=== PATIENT | female | born 1955 | race Caucasian/White ===

== ENCOUNTER 2019-12-08 12:20 | Outpatient (REF) | payer SELFPAY ==
--- NOTE | 2019-12-08 12:46 | US_ITS ---
EXAMINATION: US ABDOMEN COMPLETE CLINICAL INFORMATION: Abdominal pain. COMPARISON: None TECHNIQUE: Real-time imaging of the abdominal viscera. Technically challenging exam secondary to patient body habitus. FINDINGS: PANCREAS: The visualized pancreas is normal in size and contour and echogenicity. There is no pancreatic ductal dilatation or retroperitoneal effusion. The pancreatic tail and distal body are obscured by bowel gas and not completely imaged. ABDOMINAL AORTA: The proximal, mid, and distal segments are normal in caliber. INFERIOR VENA CAVA: Visualized portions are normal. LIVER: The liver is within normal size and smooth in contour. There is increased hepatic parenchymal echogenicity consistent with hepatic steatosis. There is no focal hepatic parenchymal lesion or intrahepatic ductal dilatation. Doppler shows portal flow towards the liver. GALLBLADDER: Normal. The gallbladder is physiologically distended without evidence of stones, sludge, polyps, wall thickening or pericholecystic fluid. COMMON BILE DUCT: Common duct is upper limits of normal measuring 6 to 7 mm in greatest dimension. No visible ductal calculus or wall thickening. RIGHT KIDNEY: Normal. No hydronephrosis. No renal calculi or focal parenchymal lesions. The kidney measures 12.6 cm in maximum dimension. LEFT KIDNEY: Normal. No hydronephrosis. No renal calculi. There is incidental lobation of the renal contour. The kidney measures 11.4 cm in maximum dimension. Simple cyst present between mid and lower pole measuring 2 cm. SPLEEN: Normal. The spleen measures 11.3 cm in maximum dimension. FREE FLUID: None. US/US abdomen complete IMPRESSION: 1. No cholelithiasis or biliary ductal dilatation. 2. Hepatic steatosis. Visualized pancreas unremarkable, tail obscured by bowel gas. 3. No hydronephrosis or visible renal calculi. Cyst left kidney 2 cm.
--- NOTE | 2019-12-08 12:46 | US_ITS ---
EXAMINATION: US THYROID CLINICAL INFORMATION: Interval follow up of nodules. COMPARISON: Ultrasound soft tissue head/neck thyroid dated 08/19/2018 and 01/11/2016. TECHNIQUE: Linear transducer barton-scale and color Doppler examination with attention to the region of the thyroid. FINDINGS: SIZE: Measurements of the thyroid lobes and nodules are given in sagittal, anteroposterior and transverse dimensions respectively. Right Thyroid Lobe: 6.6 x 2.8 x 3.5 cm, volume 33.2 mL. Previously 5.4 x 2.5 x 3.1 cm, volume 21.7 mL. Parenchyma: The gland echotexture is heterogeneous. Thyroid vascularity is normal. Left Thyroid Lobe: 8.4 x 3.4 x 3.6 cm, volume 54.0 mL. Previously 6.3 x 2.8 x 3.6 cm, volume 33.9 mL. Parenchyma: The gland echotexture is heterogeneous. Thyroid vascularity is normal. Isthmus: 1.8 cm in maximum AP dimension. Previously 1.0 cm. RIGHT THYROID LOBE: There are 4 nodules seen. 1. Location: Superior. Size: 1.5 x 0.8 x 1.1 cm. Previous: 1.1 x 0.7 x 1.0 cm. Nodule characteristics: Isoechoic, hypoechoic rind and intranodular flow. 2. Location: Superior. Size: 1.1 x 1.0 x 2.6 cm. Previous: 1.2 x 1.0 x 1.4 cm. Nodule characteristics: Heterogeneous, irregular shaped with intranodular flow. 3. Location: Middle/inferior. Size: 3.8 x 2.0 x 3.4 cm. Previous: 3.1 x 2.0 x 2.8 cm. Nodule characteristics: Heterogeneous, smoothly marginated with intranodular flow. 4. Location: Middle. Size: 0.7 x 0.6 x 0.6 cm. Previous: New since the previous study. Nodule characteristics: Heterogeneous, hypoechoic rind with no intranodular flow. Fifth nodule seen previously is not seen at this time. ISTHMUS: No nodules. LEFT THYROID LOBE: The left thyroid lobe is very heterogeneous with no distinct nodule identified. NODES: No lymphadenopathy is seen in the tissue surrounding the thyroid gland. US/US thyroid IMPRESSION: Heterogeneous multinodular goiter with multiple nodules in the right lobe as described above. The largest nodule in the [id number] pole is very heterogeneous, if clinically indicated and biopsy not performed, ultrasound-guided fine-needle biopsy should be performed. It has increased in size from 3.1 to 3.8 cm.
== END 2019-12-08 12:21 | disposition home or self-care (01) ==
LOC: HO.US 12:20
DX: E05.20 Thyrotoxicosis with toxic multinodular goiter without thyrotoxic crisis or storm (principal)
CPT/HCPCS: 76536; 76700

== ENCOUNTER 2019-12-30 10:30 | Outpatient (REF) | payer BC, SELFPAY ==
[2019-12-30 12:21] LABS: Free T4 (Free Thyroxine) 0.98 ng/dL (0.71-1.85); Thyroid Stimulating Hormone 1.02 uIU/mL (0.32-4.0)
[2019-12-31 06:52] LABS: Triiodothyronine T3 Total 96 ng/dL (76-181)
== END 2019-12-30 10:31 | disposition home or self-care (01) ==
LOC: HO.HMGCLDS 10:30
PROVIDERS: Visit Provider Internal Medicine Endocrinology, Diabetes & Metabolism
DX: E05.20 Thyrotoxicosis with toxic multinodular goiter without thyrotoxic crisis or storm (principal)
CPT/HCPCS: 84439; 84443; 84480

== ENCOUNTER 2020-03-08 10:50 | Outpatient (REF) | payer BC, SELFPAY ==
--- NOTE | 2020-03-08 11:35 | PM.OP ---
Brief Operative Note Date of Service: 03/08/20 Pre-op diagnosis: TOXIC MULTINODULAR GOITER Post-op diagnosis: same Procedure: This procedure was explained to the patient, alternatives risks and benefits were discussed. Written consent was obtained. After sterile preparation of the skin fine-needle aspiration of right mid pole nodule, size 3.8 x 2.0 x 3.4 cm was performed 100 thyroid ultrasound guidance to confirm accurate needle placement. Three passes were performed using 27 gauge needles. Initial cytology reading was adequate. 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 Second fine-needle aspiration of right lower pole nodule, size 1.7 x 1.3 x 1.7 cm was performed using 25 gauge needles. Samples were submitted for cytology, initial cytology was adequate. 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 Patient tolerated procedure well. Aftercare instructions were provided. Impression: Uncomplicated fine-needle aspiration biopsy of right mid pole nodule and right lower pole nodule under direct ultrasound guidance. Surgeon: Tenisha Bach MD Anesthesia: local (LIDOCAINE 1 % 2 ML) Estimated blood loss (mL): 0 Condition: stable Disposition: same day
[2020-03-08] MEDS: Lidocaine HCl 1 % MPF 5 ML VIAL SUBCUT (12:13)
== END 2020-03-08 10:51 | disposition home or self-care (01) ==
LOC: HO.US 10:50
PROVIDERS: Visit Provider Internal Medicine Endocrinology, Diabetes & Metabolism
DX: E05.20 Thyrotoxicosis with toxic multinodular goiter without thyrotoxic crisis or storm (principal)
CPT/HCPCS: 10005; 10006; 88172; 88173; 88177; 88305

== ENCOUNTER → 2020-03-16 11:27 | Outpatient (BNVA) | payer BC, SELFPAY | PROVIDERS: Visit Provider Internal Medicine Endocrinology, Diabetes & Metabolism ==

== ENCOUNTER → 2020-04-17 11:20 | Outpatient (BNVA) | payer BC, SELFPAY | PROVIDERS: Visit Provider Dietitian, Registered | DX: E11.65 Type 2 diabetes mellitus with hyperglycemia (principal) | CPT/HCPCS: 97802 ==

== ENCOUNTER → 2020-06-15 14:19 | Outpatient (BNVA) | payer BC, SELFPAY | PROVIDERS: Visit Provider Internal Medicine Endocrinology, Diabetes & Metabolism ==

== ENCOUNTER → 2020-08-24 08:14 | Outpatient (BNVA) | payer BC, SELFPAY | PROVIDERS: Visit Provider Internal Medicine Endocrinology, Diabetes & Metabolism ==

== ENCOUNTER 2020-08-25 11:00 | Outpatient (REF) | payer BC, SELFPAY ==
[2020-08-25 14:06] LABS: Estimated Average Glucose 166 mg/dL; Hemoglobin A1c % 7.4 %
[2020-08-25 14:21] LABS: Alanine Aminotransferase 17 U/L (0-31); Albumin Level 4.4 g/dL (3.5-5.0); Alkaline Phosphatase 41 U/L (39-117); Anion Gap 13 (12-20); Aspartate Amino Transferase 19 U/L (5-31); Bilirubin Total 0.5 mg/dL (0.0-1.0); Blood Urea Nitrogen 21 mg/dL (9-16); Calcium 9.6 mg/dL (8.4-10.2); Carbon Dioxide 23 mmol/L (22-29); Chloride 107 mmol/L (96-108); Cholesterol 172 mg/dL; Estimated Glomerular Filt Rate > 60; Glucose Fasting 141 mg/dL (60-99); HDL Cholesterol 38 mg/dL; LDL Cholesterol Calculated 94 mg/dl; Potassium 4.4 mmol/L (3.3-5.1); Sodium 139 mmol/L (135-145); Total Protein 7.2 g/dL (6.5-8.0); Triglycerides 204 mg/dL
[2020-08-25 14:39] LABS: Creatinine Urine 105.31 mg/dL; Microalbum/Creatinine Ratio Ur 16.1 ug/mg cr
[2020-08-25 14:41] LABS: Free T4 (Free Thyroxine) 0.96 ng/dL (0.71-1.85); Thyroid Stimulating Hormone 0.63 uIU/mL (0.32-4.0)
[2020-08-26 13:56] LABS: LDL Cholesterol Direct 114 mg/dL (<100); Triiodothyronine T3 Total 86 ng/dL (76-181)
[2020-08-27 08:46] LABS: Vitamin B12 250 pg/mL (200-900)
== END 2020-08-25 11:01 | disposition home or self-care (01) ==
LOC: HO.HMGCLDS 11:00
PROVIDERS: Visit Provider Internal Medicine Endocrinology, Diabetes & Metabolism
DX: E11.65 Type 2 diabetes mellitus with hyperglycemia (principal); E05.20 Thyrotoxicosis with toxic multinodular goiter without thyrotoxic crisis or storm
CPT/HCPCS: 36415; 80053; 80061; 82043; 82607; 83036; 83721; 84439; 84443; 84480

== ENCOUNTER 2021-07-09 14:13 | Outpatient (REF) | payer MEDICARE, BC, SELFPAY ==
--- NOTE | ~2021-07-09 | XR_ITS ---
EXAMINATION: XR HIP, RIGHT XR HIP, LEFT CLINICAL INFORMATION: Bilateral hip pain COMPARISON: Radiographs pelvis and bilateral hips 05/06/2013. TECHNIQUE: Each hip is imaged in AP and frog-lateral projections. There are total of 4 views. FINDINGS: Right: Normal bony mineralization. No fracture, dislocation, destructive process. No joint narrowing or erosive change or visible chondrocalcinosis. Soft tissue planes are unremarkable. There is mild spurring from the caudal aspect greater trochanter and benign oval mineralization adjacent to lower right iliac crest, possibly related to inguinal ligament. SI joint and pubis are unremarkable. Left: Normal bony mineralization. No fracture, dislocation, or destructive process. No joint narrowing or erosive change or visible chondrocalcinosis. Soft tissue planes are unremarkable. There is benign teardrop shaped mineralization adjacent to superior aspect greater trochanter with some spurring caudal aspect greater trochanter. There is also benign oval mineralization adjacent to lower iliac crests similar to contralateral side, possibly related to inguinal ligament. The SI joints and pubis are unremarkable. XR/XR hip RT min 2V IMPRESSION: -No fracture or destructive process. No hip joint narrowing or erosive change. -Bilateral mineralization adjacent to lower iliac wing, possibly in the origin inguinal ligament. -Mineralization overlying superior left greater trochanter likely calcific tendinosis. -Bilateral spurring cortical aspect greater trochanters.
--- NOTE | ~2021-07-09 | XR_ITS ---
EXAMINATION: XR HIP, RIGHT XR HIP, LEFT CLINICAL INFORMATION: Bilateral hip pain COMPARISON: Radiographs pelvis and bilateral hips 05/06/2013. TECHNIQUE: Each hip is imaged in AP and frog-lateral projections. There are total of 4 views. FINDINGS: Right: Normal bony mineralization. No fracture, dislocation, destructive process. No joint narrowing or erosive change or visible chondrocalcinosis. Soft tissue planes are unremarkable. There is mild spurring from the caudal aspect greater trochanter and benign oval mineralization adjacent to lower right iliac crest, possibly related to inguinal ligament. SI joint and pubis are unremarkable. Left: Normal bony mineralization. No fracture, dislocation, or destructive process. No joint narrowing or erosive change or visible chondrocalcinosis. Soft tissue planes are unremarkable. There is benign teardrop shaped mineralization adjacent to superior aspect greater trochanter with some spurring caudal aspect greater trochanter. There is also benign oval mineralization adjacent to lower iliac crests similar to contralateral side, possibly related to inguinal ligament. The SI joints and pubis are unremarkable. XR/XR hip LT min 2V IMPRESSION: -No fracture or destructive process. No hip joint narrowing or erosive change. -Bilateral mineralization adjacent to lower iliac wing, possibly in the origin inguinal ligament. -Mineralization overlying superior left greater trochanter likely calcific tendinosis. -Bilateral spurring cortical aspect greater trochanters.
--- NOTE | ~2021-07-09 | XR_ITS ---
EXAMINATION: XR KNEE, LEFT CLINICAL INFORMATION: M25.562 - Pain in left knee COMPARISON: Radiographs left knee 03/05/2017 TECHNIQUE: AP and lateral views of the left knee. FINDINGS: No fracture, dislocation, destructive process. Again, there are osteoarthritic changes patellofemoral joint. There is also interval mild narrowing lateral knee joint compartment with increased lateral spur tibial plateau. There is a small central osteophyte medial femoral condyle. No erosive changes. There may be trace fluid suprapatellar bursa. No significant effusion. There are scattered atherosclerotic calcifications vasculature. XR/XR knee LT 2V IMPRESSION: -Osteoarthritis patellofemoral joint and mild interval degenerative changes lateral knee joint. -Probable trace suprapatellar effusion. -Scattered atherosclerotic calcifications vasculature.
--- NOTE | ~2021-07-09 | US_ITS ---
EXAMINATION: US THYROID CLINICAL INFORMATION: Nontoxic multinodular goiter. COMPARISON: Ultrasound soft tissue head/neck thyroid dated 12/08/2019 and 08/19/2018. TECHNIQUE: Linear transducer grayscale and color Doppler examination with attention to the region of the thyroid. FINDINGS: SIZE: Measurements of the thyroid lobes and nodules are given in sagittal, anteroposterior and transverse dimensions respectively. Right Thyroid Lobe: 7.1 x 2.3 x 2.9 cm, volume 24.8 mL. Previously 6.6 x 2.8 x 3.5 cm, volume 33.2 mL. Parenchyma: The gland echotexture is heterogeneous. Thyroid vascularity is increased. Left Thyroid Lobe: 9.5 x 3.7 x 4.3 cm, volume 79.1 mL. Previously 8.4 x 3.4 x 3.6 cm, volume 54.0 mL. Parenchyma: The gland echotexture is heterogeneous. Thyroid vascularity is increased. Isthmus: 1.8 cm in maximum AP dimension. Previously 1.8 cm. Estimated total number of nodules greater than or equal to 1 cm: 3. Nail Welter nodules are described as follows: 1. Location: Right superior. Size: 0.8 x 0.4 x 0.6 cm, volume 0.11 mL. Previously: 1.5 x 0.8 x 1.1 cm, volume 0.69 mL. Nodule characteristics: Composition: Solid (2). Echogenicity: Isoechoic (1). Shape: Not taller than wide (0). Margins: Ill-defined (0). Echogenic Foci: None (0). ACR TI-RADS total points: 3 ACR TI-RADS category: 3 Significant change in size (>/= 20% in 2 dimensions and minimal increase of 2 mm or 50% or greater increase in volume): Cannot compare. Previously there were 2 separate nodules and appear merged. Change in features: Appears more complex this time Change in ACR TI-RADS risk category: 2. Location: Right mid/inferior medial. Size: 4.7 x 2.0 x 4.4 cm, volume 21.9 mL. Previously: Previously measured as 2 separate nodules. Nodule characteristics: Composition: Solid (2). Echogenicity: Hypoechoic (2). Shape: Not taller than wide (0). Margins: Irregular (2). Echogenic Foci: None (0). ACR TI-RADS total points: 6 ACR TI-RADS category: 4 Significant change in size (>/= 20% in 2 dimensions and minimal increase of 2 mm or 50% or greater increase in volume): Not applicable. Change in features: Not applicable. Change in ACR TI-RADS risk category: Not applicable. 3. Location: Left inferior. Size: 8.1 x 4.3 x 5.5 cm, volume 100 mL. Previously: Not documented on the prior study. Nodule characteristics: Composition: Solid (2). Echogenicity: Hypoechoic (2). Shape: Not taller than wide (0). Margins: Extrathyroidal extension (3). Echogenic Foci: None (0). ACR TI-RADS total points: 7 ACR TI-RADS category: 5 4. Location: Left superior. Size: 3.6 x 1.8 x 2.8 cm, volume 9.4 mL. Previously: Not documented on the prior study. Nodule characteristics: Composition: Solid (2). Echogenicity: Hypoechoic (2). Shape: Not taller than wide (0). Margins: Smooth (0). Echogenic Foci: Macrocalcifications (1). ACR TI-RADS total points: 5 ACR TI-RADS category: 4 NODES: No lymphadenopathy is seen in the tissue surrounding the thyroid gland. US/US thyroid IMPRESSION: 2 nodules in the right upper and midpole are united to form a complex larger nodule within midpole with TI-RADS 4 and total points 6. There is a complex nodule measuring 8.1 cm in the lower pole left lobe. Both these nodules appear different from the previous study and a biopsy is recommended.. ACR TI-RADS RECOMMENDATION REFERENCE: Ultrasound-guided fine-needle aspiration, followup ultrasound, no further follow up. * TR1 (0 point) and TR 2 (2 points): No FNA or follow up * TR3 (3 points): FNA if more than or equal to 2.5 cm in maximum dimension, followup ultrasound in 1, 3 and 5 years if 1.5 to 2.4 cm in maximum dimension. * TR4 (4-6 points): FNA if more than or equal to 1.5 cm in maximum dimension, followup ultrasound in 1, 2, 3 and 5 years if 1 to 1.4 cm in maximum dimension. * TR5 (more than or equal to 7 points): FNA if more than or equal to 1 cm in maximum dimension, followup ultrasound every year for 5 years if 0.5 to 0.9 cm in maximum dimension. * TR3, TR4 or TR5 nodules that are below the size threshold for follow up receive no follow up.
== END 2021-07-09 14:14 | disposition home or self-care (01) ==
LOC: HO.HMGCX 14:13
PROVIDERS: Absent Provider Internal Medicine; Visit Provider Internal Medicine Endocrinology, Diabetes & Metabolism
DX: M25.562 Pain in left knee (principal); M25.552 Pain in left hip; M25.551 Pain in right hip; E04.2 Nontoxic multinodular goiter; E05.20 Thyrotoxicosis with toxic multinodular goiter without thyrotoxic crisis or storm
CPT/HCPCS: 73502; 73560; 76536

== ENCOUNTER 2021-07-22 09:37 | Outpatient (REF) | payer MEDICARE, BC, SELFPAY ==
[2021-07-22 12:57] LABS: Hematocrit 39.5 % (37.0-47.0); Hemoglobin 13.2 g/dl (12.0-16.0); Mean Corpuscular HGB Conc 33.4 g/dl (31.0-35.0); Mean Corpuscular Hemoglobin 29.1 pg (27.0-33.0); Platelet Count 297 X10*3/uL (160-400); Red Blood Count 4.54 X10*6/uL (4.20-5.50); Red Cell Distribution Width 12.6 % (11.0-16.0)
[2021-07-22 13:18] LABS: Estimated Average Glucose 160 mg/dL; Hemoglobin A1c % 7.2 %
[2021-07-22 13:31] LABS: Free T4 (Free Thyroxine) 0.95 ng/dL (0.71-1.85); Thyroid Stimulating Hormone 0.76 uIU/mL (0.32-4.0)
[2021-07-22 13:32] LABS: Alanine Aminotransferase 21 U/L (0-31); Albumin Level 4.2 g/dL (3.5-5.0); Alkaline Phosphatase 46 U/L (39-117); Anion Gap 11 (12-20); Aspartate Amino Transferase 21 U/L (5-31); Bilirubin Direct < 0.2 mg/dL (0.0-0.5); Bilirubin Total 0.4 mg/dL (0.0-1.0); Blood Urea Nitrogen 14 mg/dL (9-16); Calcium 9.6 mg/dL (8.4-10.2); Carbon Dioxide 26 mmol/L (22-29); Chloride 106 mmol/L (96-108); Cholesterol 144 mg/dL; Estimated Glomerular Filt Rate > 60; Glucose Fasting 93 mg/dL (60-99); HDL Cholesterol 37 mg/dL; LDL Cholesterol Calculated 73 mg/dl; Potassium 4.3 mmol/L (3.3-5.1); Sodium 139 mmol/L (135-145); Total Protein 6.9 g/dL (6.5-8.0); Triglycerides 172 mg/dL
[2021-07-23 08:56] LABS: Triiodothyronine T3 Free 3.1 pg/mL (2.3-4.2)
[2021-07-28 13:31] LABS: Vitamin D 25-OH, D2 <4 ng/mL; Vitamin D 25-OH, D3 33 ng/mL; Vitamin D 25-OH, Total 33 ng/mL (30-100)
== END 2021-07-22 09:38 | disposition home or self-care (01) ==
LOC: HO.HMGCLDS 09:37
PROVIDERS: Absent Provider Internal Medicine Endocrinology, Diabetes & Metabolism; PCP Internal Medicine; Visit Provider Internal Medicine
DX: E55.9 Vitamin D deficiency, unspecified (principal); E78.5 Hyperlipidemia, unspecified; E11.40 Type 2 diabetes mellitus with diabetic neuropathy, unspecified; E05.20 Thyrotoxicosis with toxic multinodular goiter without thyrotoxic crisis or storm
CPT/HCPCS: 36415; 80053; 80061; 80076; 82248; 82306; 83036; 84439; 84443; 84481; 85027

== ENCOUNTER → 2021-08-21 11:00 | Outpatient (BNVA) | payer MEDICARE, BC, SELFPAY | PROVIDERS: PCP Internal Medicine; Visit Provider Internal Medicine Endocrinology, Diabetes & Metabolism | DX: E11.65 Type 2 diabetes mellitus with hyperglycemia (principal); E05.20 Thyrotoxicosis with toxic multinodular goiter without thyrotoxic crisis or storm | CPT/HCPCS: Q3014 ==

== ENCOUNTER 2021-08-27 12:04 | Outpatient (REF) | payer MEDICARE, BC, SELFPAY ==
[2021-08-27 14:23] LABS: Creatinine Urine 42.39 mg/dL; Microalbum/Creatinine Ratio Ur 16.5 ug/mg cr
[2021-08-27 14:35] LABS: Thyroid Stimulating Hormone 0.45 uIU/mL (0.32-4.0)
[2021-08-30 20:02] LABS: Antibody to SS-A Antigen <1.0 NEG AI (<1.0 NEG); Antibody to SS-B Antigen <1.0 NEG AI (<1.0 NEG)
== END 2021-08-27 12:05 | disposition home or self-care (01) ==
LOC: HO.HMGCLDS 12:04
PROVIDERS: PCP Internal Medicine; Visit Provider Internal Medicine
DX: E05.90 Thyrotoxicosis, unspecified without thyrotoxic crisis or storm (principal); H04.123 Dry eye syndrome of bilateral lacrimal glands; R68.2 Dry mouth, unspecified; E11.9 Type 2 diabetes mellitus without complications
CPT/HCPCS: 36415; 82043; 84443; 86235

== ENCOUNTER → 2021-10-08 12:59 | Outpatient (BNVA) | payer MEDICARE, BC, SELFPAY | PROVIDERS: PCP Internal Medicine; Visit Provider Dietitian, Registered | DX: E11.9 Type 2 diabetes mellitus without complications (principal); Z71.3 Dietary counseling and surveillance | CPT/HCPCS: 97803 ==

== ENCOUNTER 2021-11-26 12:17 | Outpatient (REF) | payer MEDICARE, BC, SELFPAY ==
[2021-11-26 14:53] LABS: Alanine Aminotransferase 15 U/L (0-31); Albumin Level 4.5 g/dL (3.5-5.0); Alkaline Phosphatase 65 U/L (39-117); Anion Gap 18 (12-20); Aspartate Amino Transferase 17 U/L (5-31); Bilirubin Total 0.5 mg/dL (0.0-1.0); Blood Urea Nitrogen 10 mg/dL (9-16); Calcium 9.7 mg/dL (8.4-10.2); Carbon Dioxide 24 mmol/L (22-29); Chloride 102 mmol/L (96-108); Cholesterol 221 mg/dL; Estimated Glomerular Filt Rate > 60; Glucose Fasting 254 mg/dL (60-99); HDL Cholesterol 40 mg/dL; LDL Cholesterol Calculated 128 mg/dl; Potassium 4.5 mmol/L (3.3-5.1); Sodium 139 mmol/L (135-145); Total Protein 7.4 g/dL (6.5-8.0); Triglycerides 267 mg/dL
[2021-11-26 15:09] LABS: Vitamin D 25-OH Total 27.7 ng/mL (>30)
[2021-11-26 15:16] LABS: Free T4 (Free Thyroxine) 1.07 ng/dL (0.71-1.85); Thyroid Stimulating Hormone 0.24 uIU/mL (0.32-4.0)
[2021-11-28 11:52] LABS: Triiodothyronine T3 Free 3.5 pg/mL (2.3-4.2)
== END 2021-11-26 12:18 | disposition home or self-care (01) ==
LOC: HO.HMGCLDS 12:17
PROVIDERS: Absent Provider Internal Medicine Endocrinology, Diabetes & Metabolism; PCP Internal Medicine; Visit Provider Internal Medicine
DX: E05.20 Thyrotoxicosis with toxic multinodular goiter without thyrotoxic crisis or storm (principal); E55.9 Vitamin D deficiency, unspecified; E78.2 Mixed hyperlipidemia
CPT/HCPCS: 36415; 80053; 80061; 82306; 84439; 84443; 84481

== ENCOUNTER 2022-01-07 15:13 | Outpatient (REF) | payer MEDICARE, BC, SELFPAY ==
--- NOTE | ~2022-01-07 | MR_ITS ---
EXAMINATION: MRI BRAIN WITHOUT CONTRAST. CLINICAL INFORMATION: Headache. COMPARISON: CT head 04/14/2016. TECHNIQUE: Multiplanar MR imaging of the brain was performed without contrast. FINDINGS: There is gliosis and encephalomalacia involving the left parietal lobe representing chronic changes of an old infarct. There is also a small chronic lacunar infarct involving the posterior limb of left internal capsule with associated wallerian degeneration that extends along the corticospinal pathway. Numerous foci of T2 FLAIR signal hyperintense are visualized within the perivertebral white matter and mikal. There is a tiny focus of restricted diffusion involving the right external capsule. No pathological magnetic susceptibility artifact. Intracranial vascular flow voids are maintained. There is no intracranial mass effect or midline shift. Lateral and third ventricles are proportionate to the subarachnoid spaces. No hydrocephalus. Midline structures including the cervicomedullary junction are normal. No acute bone marrow signal changes. There is a left mastoid effusion. Mild paranasal sinus disease primarily affecting the ethmoid air cells. Globes and orbits are grossly symmetric. MR/MR head/brain wo con IMPRESSION: There is a tiny acute white matter infarct involving the right external capsule. 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
== END 2022-01-07 15:14 | disposition home or self-care (01) ==
LOC: HO.MRI 15:13
PROVIDERS: Visit Provider Internal Medicine
DX: R51.9 Headache, unspecified (principal)
CPT/HCPCS: 70551

== ENCOUNTER → 2022-01-28 10:27 | Outpatient (REF) | payer MEDICARE, BC, SELFPAY ==
--- NOTE | ~2022-01-28 | NM_ITS ---
EXAMINATION: THYROID UPTAKE AND SCAN CLINICAL INFORMATION: Thyrotoxicosis with toxic multinodular goiter. COMPARISON: No previous radionuclide thyroid scan is available for comparison. Thyroid ultrasound dated 07/09/2021 is available for comparison. TECHNIQUE: Following the oral administration of 259 microcuries of I-123 sodium iodide, thyroid uptake was performed and expressed as a percentage of the administrated dose. Gamma scintillation camera images of the thyroid in the anterior and right and left anterior oblique views were obtained using a pinhole collimator following the administration of 10 mCi Tc-99m pertechnetate. FINDINGS: The uptake is 4.1% at 4 hours and 27.2% at 24 hours (Normal radioiodine uptake at 24 hours is 10% to 30%). The radioiodine uptake is normal. The radiopertechnetate thyroid scintigram shows the thyroid gland to be normal in size. The gland is slightly asymmetrical with the left lobe larger than the right. There is minimal heterogeneity within the gland, predominantly in the left lobe, but no well delineated discrete focal abnormality is present. The overall trapping function appears normal. A single anterior radioiodine image obtained at the time of the 24-hour uptake measurement is similar in appearance to the radio pertechnetate image. NM/NM thyroid w uptake IMPRESSION: Normal radioiodine uptake. Other than minimal heterogeneity, predominantly in the left lobe and slight asymmetry of the gland with the left lobe larger than the right, no definite abnormalities are present. In the clinical setting of hyperthyroidism, these findings are consistent with early Graves' disease.
== END ==
LOC: HO.NUCMED 10:27
PROVIDERS: Visit Provider Internal Medicine Endocrinology, Diabetes & Metabolism
DX: E05.20 Thyrotoxicosis with toxic multinodular goiter without thyrotoxic crisis or storm (principal)
CPT/HCPCS: 78014; A9512; A9516

== ENCOUNTER 2022-02-19 13:11 | Outpatient (REF) | payer MEDICARE, BC, SELFPAY ==
[2022-02-23 20:39] LABS: Thyrotropin Receptor Antibody <1.00 IU/L (<=2.00)
== END 2022-02-19 13:12 | disposition home or self-care (01) ==
LOC: HO.HMGCLDS 13:11
PROVIDERS: PCP Internal Medicine; Visit Provider Internal Medicine Endocrinology, Diabetes & Metabolism
DX: E05.20 Thyrotoxicosis with toxic multinodular goiter without thyrotoxic crisis or storm (principal)
CPT/HCPCS: 36415; 83520

== ENCOUNTER → 2022-02-20 13:26 | Outpatient (BNVA) | payer MEDICARE, BC, SELFPAY | PROVIDERS: PCP Internal Medicine; Visit Provider Internal Medicine Endocrinology, Diabetes & Metabolism | DX: E11.65 Type 2 diabetes mellitus with hyperglycemia (principal); E05.20 Thyrotoxicosis with toxic multinodular goiter without thyrotoxic crisis or storm; Z79.84 Long term (current) use of oral hypoglycemic drugs | CPT/HCPCS: 82947; 83036; 99212 ==

== ENCOUNTER 2022-06-04 11:32 | Outpatient (REF) | payer MEDICARE, BC, SELFPAY ==
[2022-06-04 14:36] LABS: Free T4 (Free Thyroxine) 1.06 ng/dL (0.71-1.85); Thyroid Stimulating Hormone 0.15 uIU/mL (0.32-4.0)
[2022-06-06 07:28] LABS: Triiodothyronine T3 Free 3.3 pg/mL (2.3-4.2)
== END 2022-06-04 11:33 | disposition home or self-care (01) ==
LOC: HO.HMGCLDS 11:32
PROVIDERS: PCP Internal Medicine; Visit Provider Internal Medicine Endocrinology, Diabetes & Metabolism
DX: E05.20 Thyrotoxicosis with toxic multinodular goiter without thyrotoxic crisis or storm (principal)
CPT/HCPCS: 36415; 84439; 84443; 84481

== ENCOUNTER 2022-06-05 09:45 | Outpatient (REF) | payer MEDICARE, BC, SELFPAY ==
--- NOTE | 2022-06-05 10:46 | P.BOP_ITS ---
Brief Operative Note Date of Service: 06/05/22 Pre-op diagnosis: Multinodular Thyroid Procedure: EXAMINATION: US THYROID CLINICAL INFORMATION: Multinodular Thyroid COMPARISON: Prior TECHNIQUE: Linear transducer barton-scale and color Doppler examination with attention to the region of the thyroid. FINDINGS: SIZE: Measurements of the thyroid lobes and nodules are given in sagittal, anteroposterior and transverse dimensions respectively. Right Thyroid Lobe: 6.3 x 2.4 x 3.0 cm, volume 23.7 mL. Parenchyma: The gland echotexture is diffusely heterogenous. Left Thyroid Lobe: 9.7 x 4.3 x 3.7 cm, volume 80.7 mL. Parenchyma: The gland echotexture is Isthmus: 1.1 cm in maximum AP dimension. There is a large heterogenous nodule encompassing the majority of the left lobe, isthmus and right lower lobe. This appears to be extending substernally. NODES: No lymphadenopathy is seen in the tissue surrounding the thyroid gland. Surgeon: Isamar Lopez, DO Was an Garden Implement Mechanic used for this Procedure?: No Estimated blood loss (mL): 0
== END 2022-06-05 09:46 | disposition home or self-care (01) ==
LOC: HO.US 09:45
PROVIDERS: PCP Internal Medicine; Visit Provider Internal Medicine Endocrinology, Diabetes & Metabolism
DX: E05.20 Thyrotoxicosis with toxic multinodular goiter without thyrotoxic crisis or storm (principal)
CPT/HCPCS: 76536

== ENCOUNTER → 2022-06-19 13:56 | Outpatient (BNVA) | payer MEDICARE, BC, SELFPAY | PROVIDERS: PCP Internal Medicine; Visit Provider Internal Medicine Endocrinology, Diabetes & Metabolism | DX: E05.20 Thyrotoxicosis with toxic multinodular goiter without thyrotoxic crisis or storm (principal); E11.65 Type 2 diabetes mellitus with hyperglycemia; Z79.4 Long term (current) use of insulin | CPT/HCPCS: 82947; 83036; 99212 ==

== ENCOUNTER 2022-09-09 15:25 | Outpatient (AMB) | payer MEDICARE, BC, SELFPAY ==
--- NOTE | 2022-09-09 15:30 | MHC.PC.OV ---
Vital Signs 09/09/22 15:31 Height 5 ft 8 in Weight 216 lb BMI 32.8 BP 120/82 Blood Pressure Location Lt brachial Position Sitting Intake Visit Reasons: bp,dm NEEDS 30 MINUTES Intake Note: Patient here for a follow up BP, DM Home Aide Required: No Accompanied by: Self / Same As Patient Allergies amoxicillin Allergy (Intermediate, Verified 09/09/22 15:40) hives, hand swelling, itch, feet swelling Medication List - Last Reconciled 09/09/22 by Anna Magana MD aspirin 81 mg PO DAILY 90 days atorvastatin 80 mg PO BEDTIME 90 days blood sugar diagnostic (Honestly.comTouch Verio test strips) DIRECTED blood-glucose sensor ([place] 3 Sensor device) As directed change every 14 days bupropion HCl 300 mg PO DAILY 90 days slaplqbxdj-mixyseaqxkwop-sitz 50-325-40 mg 1 tab PO BID PRN 30 days cholecalciferol (vitamin D3) (D3-2000) 50 mcg PO DAILY clindamycin HCl 300 mg PO Q8H 7 days clonazepam 0.5 mg PO DAILY 90 days duloxetine 120 mg (2 x 60 mg) PO DAILY 90 days fenofibrate nanocrystallized 145 mg PO DAILY 90 days glipizide 10 mg (2 x 5 mg) PO BID losartan 25 mg PO DAILY 30 days metformin ER 500 mg PO BID 90 days omeprazole 20 mg PO BID 90 days propranolol ER 80 mg PO DAILY semaglutide (Ozempic) 0.25 mg (0.2 mL) subcut QWEEK 90 days zolpidem 5 mg PO BEDTIME PRN 30 days Tobacco use date assessed: 04/02/22 Fall risk assessment: No Falls in past year Last assessed Fall Risk: 09/09/22 Dental Screening Dental Screen Date: 09/09/22 Did you have a dental visit in the last 12 months?: No Did you have a dental problem in the last 6 months where you did not have access to dental care?: No Was dental information given to patient?: No HPI HPI Comments History of Present Illness Details This is a 67-year-old female with diabetes mellitus type 2, hypertension, mixed hyperlipidemia, 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 Last A1c was within goal. Blood pressure stable. Lipid panel was ordered and her LDL goal should be less than 70. On aspirin for secondary prophylaxis of her CVA. She does not have any residual deficit but does have some mild cognitive impairment. Follows with Neurology. She also has nontoxic multinodular goiter and hyperthyroidism follow by Endocrinology. She denies any chest pain or shortness of breath. [facility] Medical History (Updated 04/02/22 @ 16:13 by Anna Magana MD) Depression with anxiety Diabetes mellitus Diabetes type 2, uncontrolled Dyslipidemia Essential hypertension Essential hypertension GERD (gastroesophageal reflux disease) Hirsutism Hyperthyroidism Hypovitaminosis D Left hip pain Left knee pain Migraines Mild recurrent major depression Mixed hyperlipidemia Obese Right hip pain Toxic multinodular goiter Vitamin D deficiency Surgical History History of back surgery Hx of removal of neck cyst Previous back surgery Status post biopsy of thyroid gland Family History Father Hypertension Substance use disorder Mother Type 2 diabetes mellitus Lung cancer Social History Household Members: None Housing: House Alcohol intake: never Patient Tobacco Use Status: Former Tobacco user Tobacco use type: Cigarette e-Cigarette/Vaping Use: Never Used Second Hand Smoke Exposure: No service: No Current occupational status: retired Cognitive needs: Yes Hearing needs: No Vision needs: No Questionnaire Thrive Questionnaire Date Thrive assessed: 04/02/22 HAMMAD-7 AMB Questionnaire HAMMAD-7 Date HAMMAD - 7 assessed: 04/02/22 Source: Developed by Drs. Jun Moncada, Antonina Emery, Balta Lopez and colleagues, with an educational darío from [employer]. Review of Systems Const All systems reviewed & are unremarkable except as noted in HPI and below Eyes Reports no additional complaints, Denies change in vision and Denies other visual disturbances Card Denies chest pain at rest, Denies chest pain with activity, Denies edema, Denies irregular heart rhythm, Denies claudication, Denies dyspnea, Denies dyspnea on exertion, Denies orthopnea, Denies paroxysmal nocturnal dyspnea and Denies slow heart rate Resp Denies cough, Denies dyspnea and Denies dyspnea on exertion GI Denies abdominal pain, Denies change in bowel habits, Denies excessive flatus, Denies nausea and Denies vomiting Denies urinary incontinence, Denies urinary hesitancy and Denies urinary urgency Musc Denies abnormal gait, Denies atrophy, Denies deformity and Denies limited range of motion Skin/Breast Denies bleeding lesions, Denies changing lesions and Denies rash Neuro Denies abnormal gait and Denies lack of coordination Physical exam (Primary Care) Vital Signs: Last Vital Signs BP 120/82 09/09/22 15:31 BMI result Body Mass Index 32.8 Tobacco/Smoking Status: Tobacco use Status Tobacco use date assessed 04/02/22 09/09/22 15:35 Patient Tobacco Use Status Former Tobacco user 09/09/22 15:35 Tobacco use type Cigarette 09/09/22 15:35 e-Cigarette/Vaping Use Never Used 09/09/22 15:35 Thrive Assessment: Date of Thrive Assessment Date Thrive assessed 04/02/22 09/09/22 15:35 Eyes General: appearance normal, both eyes and all related structures Eyelids: Yes eyelids normal Conjunctivae: conjunctivae normal Neck Neck: Yes normal visual inspection and Yes supple Resp Effort & Inspection: normal respiratory effort Auscultation: clear to auscultation bilaterally Cardio Jugular venous distension: no JVD Rate: regular rate Rhythm: regular rhythm Heart sounds: S1 normal heart sound present and S2 normal heart sound present Extrem General: Yes full ROM Assessment and Plan Assessment & Plan (1) Diabetes mellitus: Code(s): E11.9 - Type 2 diabetes mellitus without complications Qualifiers: Diabetes mellitus type: type 2 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 A1c goal is equal or less than 7%. (2) CVA (cerebral vascular accident): Code(s): I63.9 - Cerebral infarction, unspecified Plan: Continue aspirin for secondary prophylaxis. Follow-up with Neurology. (3) Essential hypertension: Code(s): I10 - Essential (primary) hypertension Plan: Continue losartan. Blood pressure goal is equal or less than 130/80. (4) Mixed hyperlipidemia: Code(s): E78.2 - Mixed hyperlipidemia Plan: Continue statins and fibrates. LDL goal is less than 70. (5) Mild recurrent major depression: Code(s): F33.0 - Major depressive disorder, recurrent, mild Plan: Continue bupropion. Orders: Orders Comprehensive [place]. Panel Fast Today E11.9 - Type 2 diabetes mellitus without complications Lipid Panel Today E78.5 - Hyperlipidemia, unspecified Vitamin D 25-OH Total Today E55.9 - Vitamin D deficiency, unspecified Microalbumin, Random (w Creat) Today E11.9 - Type 2 diabetes mellitus without complications Complete Blood Count Auto Diff Today R51.9 - Headache, unspecified Medications: Discontinued semaglutide (Ozempic) for 4 doses Discontinued Reason: Patient Refused 0.25 mg (0.2 mL) subcut QWEEK 90 days 2.6 mL 1RF E11.9 - Type 2 diabetes mellitus without complications Coding Level of Care Code Est Pt Level 4 (68365) Diagnoses Diabetes mellitus E11.9 Diabetes mellitus type: type 2 Diabetes mellitus custodial insulin use: without custodial use Diabetes mellitus complication status: without complication CVA (cerebral vascular accident) I63.9 Essential hypertension I10 Mixed hyperlipidemia E78.2 Mild recurrent major depression F33.0 Time Spent (min) 25
[2022-09-09 15:31] VITALS: BP 120/82; BMI 32.8
== END 2022-09-09 16:07 | disposition home or self-care (01) ==
PROVIDERS: Visit Provider Internal Medicine
DX: E11.69 Type 2 diabetes mellitus with other specified complication (principal); Z86.73 Personal history of transient ischemic attack (TIA), and cerebral infarction without residual deficits; I10 Essential (primary) hypertension; F33.0 Major depressive disorder, recurrent, mild; E78.2 Mixed hyperlipidemia
CPT/HCPCS: 99214

== ENCOUNTER 2022-09-25 11:59 | Outpatient (REF) | payer MEDICARE, BC, SELFPAY ==
[2022-09-25 13:29] LABS: MANUAL DIFF FLAG NO
[2022-09-25 13:54] LABS: Basophils Absolute Auto 0.1 X10*3/uL (0.0-0.2); Eosinophils Absolute Auto 0.4 X10*3/uL (0.0-0.4); Eosinophils Percent Auto 3.5 % (0-4); Hematocrit 43.1 % (37.0-47.0); Hemoglobin 14.4 g/dl (12.0-16.0); Imm Gran Abs Auto 0.04 X10*3/uL (0.00-0.03); Imm Gran Pct Auto 0.4 % (0.0-0.4); Lymphocytes Absolute Auto 3.3 X10*3/uL (1.2-4.9); Lymphocytes Percent Auto 30.3 % (20-40); Mean Corpuscular HGB Conc 33.4 g/dl (31.0-35.0); Mean Corpuscular Hemoglobin 28.7 pg (27.0-33.0); Mean Platelet Volume 10.3 fL (9.4-12.3); Monocytes Absolute Auto 0.6 X10*3/uL (0.1-1.2); Monocytes Percent Auto 5.9 % (2-11); Neutrophils Absolute Auto 6.4 x10*3/uL (2.0-8.3); Neutrophils Percent Auto 58.9 % (45-73); Platelet Count 321 X10*3/uL (160-400); Red Blood Count 5.01 X10*6/uL (4.20-5.50); Red Cell Distribution Width 12.5 % (11.0-16.0); White Blood Count 10.9 X10*3/uL (4.8-10.8)
[2022-09-25 14:27] LABS: Alanine Aminotransferase 15 U/L (0-31); Albumin Level 4.3 g/dL (3.5-5.0); Alkaline Phosphatase 48 U/L (39-117); Anion Gap 14 (12-20); Aspartate Amino Transferase 16 U/L (5-31); Bilirubin Total 0.3 mg/dL (0.0-1.0); Blood Urea Nitrogen 13 mg/dL (9-16); Calcium 9.9 mg/dL (8.4-10.2); Carbon Dioxide 27 mmol/L (22-29); Chloride 107 mmol/L (96-108); Cholesterol 193 mg/dL; Estimated Glomerular Filt Rate > 60; Glucose Fasting 184 mg/dL (60-99); HDL Cholesterol 39 mg/dL; Iron 110 mcg/dL (30-160); LDL Cholesterol Calculated 104 mg/dl; Percent Iron Saturation 32 % (15-50); Potassium 4.1 mmol/L (3.3-5.1); Sodium 144 mmol/L (135-145); Total Iron Binding Capacity 339 mcg/dL (228-428); Total Protein 7.4 g/dL (6.5-8.0); Triglycerides 252 mg/dL; Unsaturated Iron Binding 229 ug/dL
[2022-09-25 14:33] LABS: Creatinine Urine 105.95 mg/dL; Microalbum/Creatinine Ratio Ur 92.4 ug/mg cr
[2022-09-25 14:47] LABS: Erythrocyte Sedimentation Rate 6 MM/HR (0-20)
[2022-09-25 14:50] LABS: Vitamin D 25-OH Total 30.3 ng/mL (>30)
[2022-09-25 14:52] LABS: Folate 6.6 ng/mL (> or = 4.0); Vitamin B12 368 pg/mL (200-900)
[2022-09-26 10:09] LABS: Lyme Abs Screen <0.90 index
[2022-09-30 10:48] LABS: CRP High Sensitivity 0.4 mg/L
== END 2022-09-25 12:00 | disposition home or self-care (01) ==
LOC: HO.HMGCLDS 11:59
PROVIDERS: PCP Internal Medicine; Visit Provider Internal Medicine
DX: E53.8 Deficiency of other specified B group vitamins (principal); D64.9 Anemia, unspecified; E55.9 Vitamin D deficiency, unspecified; E78.5 Hyperlipidemia, unspecified; E11.9 Type 2 diabetes mellitus without complications; R51.9 Headache, unspecified; R53.83 Other fatigue
CPT/HCPCS: 36415; 80053; 80061; 82043; 82306; 82607; 82746; 83540; 85025; 85652; 86141; 86617; 86618

== ENCOUNTER 2022-10-20 16:39 | Outpatient (AMB) | payer MEDICARE, BC, SELFPAY ==
--- NOTE | 2022-10-20 16:39 | A.OFFPC_ITS ---
Intake Visit Reasons: go over labs with pt Intake Note: Telehealth follow up labs Court Reporter Required: No Allergies amoxicillin Allergy (Intermediate, Verified 10/20/22 17:39) hives, hand swelling, itch, feet swelling Medication List - Last Reconciled 10/20/22 by Anna Magana MD aspirin 81 mg PO DAILY 90 days atorvastatin 80 mg PO BEDTIME 90 days blood sugar diagnostic (OneTouch Verio test strips) DIRECTED blood-glucose sensor (FreeStyle [place] 3 Sensor device) As directed change every 14 days vusxhpriis-mxrgcpzcgnntb-bckj 50-325-40 mg 1 tab PO BID PRN 30 days cholecalciferol (vitamin D3) (D3-2000) 50 mcg PO DAILY clonazepam 0.5 mg PO DAILY 90 days duloxetine 120 mg (2 x 60 mg) PO DAILY 90 days ezetimibe 10 mg PO DAILY 90 days fenofibrate nanocrystallized 145 mg PO DAILY 90 days glipizide 10 mg (2 x 5 mg) PO BID losartan 25 mg PO DAILY 30 days metformin ER 1,500 mg (3 x 500 mg) PO DAILY 90 days omeprazole 20 mg PO BID 90 days propranolol ER 80 mg PO DAILY Tobacco use date assessed: 04/02/22 Fall risk assessment: No Falls in past year Last assessed Fall Risk: 10/20/22 Dental Screening Dental Screen Date: 10/20/22 Did you have a dental visit in the last 12 months?: Yes Did you have a dental problem in the last 6 months where you did not have access to dental care?: No Was dental information given to patient?: Patient has dentist HPI HPI Comments History of Present Illness Details This is a 67-year-old female with diabetes mellitus type 2, mild recurrent major depression, dyslipidemia and toxic multinodular goiter that has telehealth visit by phone for follow-up on recent labs. Blood glucose elevated and I will increase metformin LDL not on goal and I will add Zetia. Depression stable with Cymbalta. Will have thyroidectomy soon for her goiter. No chest pain or shortness of breath [facility] Medical History (Updated 09/13/22 @ 10:19 by Anna Magana MD) Mild recurrent major depression Left knee pain Right hip pain Left hip pain GERD (gastroesophageal reflux disease) Hypovitaminosis D Migraines Mixed hyperlipidemia Obese Depression with anxiety Essential hypertension Hyperthyroidism Diabetes mellitus Hirsutism Vitamin D deficiency Essential hypertension Dyslipidemia Diabetes type 2, uncontrolled Toxic multinodular goiter Surgical History Previous back surgery Status post biopsy of thyroid gland Hx of removal of neck cyst History of back surgery Family History Father Hypertension Substance use disorder Mother Type 2 diabetes mellitus Lung cancer Social History Household Members: None Housing: House Alcohol intake: never Patient Tobacco Use Status: Former Tobacco user Tobacco use type: Cigarette e-Cigarette/Vaping Use: Never Used Second Hand Smoke Exposure: No service: No Current occupational status: retired Cognitive needs: Yes Hearing needs: No Vision needs: No Questionnaire Thrive Questionnaire Date Thrive assessed: 04/02/22 HAMMAD-7 AMB Questionnaire HAMMAD-7 Date HAMMAD - 7 assessed: 04/02/22 Source: Developed by Drs. Jun Moncada, Antonina Emery, Balta Lopez and colleagues, with an educational darío from [employer]. Review of Systems Const All systems reviewed & are unremarkable except as noted in HPI and below Eyes Reports no additional complaints, Denies change in vision and Denies other visual disturbances ENT Denies change in voice, Denies lip swelling, Denies nasal discharge and Denies sinus pain Card Denies chest pain at rest, Denies chest pain with activity, Denies edema, Denies irregular heart rhythm, Denies claudication, Denies dyspnea, Denies dyspnea on exertion, Denies orthopnea, Denies paroxysmal nocturnal dyspnea and Denies slow heart rate Resp Denies cough, Denies dyspnea and Denies dyspnea on exertion GI Denies abdominal pain, Denies change in bowel habits, Denies excessive flatus, Denies nausea and Denies vomiting Denies urinary incontinence, Denies urinary hesitancy and Denies urinary urgency Musc Denies abnormal gait, Denies atrophy, Denies deformity and Denies limited range of motion Skin/Breast Denies bleeding lesions, Denies changing lesions and Denies rash Neuro Denies abnormal gait, Denies behavioral changes, Denies confusion and Denies lack of coordination Psych Denies behavioral changes and Denies confusion Endo Denies cold intolerance Toney/Lymph Denies easy bleeding and Denies easy bruising Aller/Immun Denies urticaria and Denies lip swelling Physical exam (Primary Care) Tobacco/Smoking Status: Tobacco use Status Tobacco use date assessed 04/02/22 10/20/22 16:42 Patient Tobacco Use Status Former Tobacco user 10/20/22 16:42 Tobacco use type Cigarette 10/20/22 16:42 e-Cigarette/Vaping Use Never Used 10/20/22 16:42 Thrive Assessment: Date of Thrive Assessment Date Thrive assessed 04/02/22 10/20/22 16:42 Const General: No confusion Orientation/consciousness: No confusion Neuro General: No confusion Telehealth Telehealth Location of provider rendering services: practice address Location of patient: address on file Patient Identification confirmed using: Name, : Yes Telehealth method: voice only Patient verbally consented to treatment: Yes Patient verbally consented to billing insurance company: Yes Patient informed of any privacy concerns related to visit: Yes Minutes spent on Phone/Video with Pt.: 15 Assessment and Plan Assessment & Plan (1) Diabetes mellitus: Code(s): E11.9 - Type 2 diabetes mellitus without complications Qualifiers: Diabetes mellitus type: type 2 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 A1c goal is equal or less than 7% (2) Mild recurrent major depression: Code(s): F33.0 - Major depressive disorder, recurrent, mild Plan: Continue Cymbalta (3) Dyslipidemia: Code(s): E78.5 - Hyperlipidemia, unspecified Plan: Continue statins and fibrates. At Zetia. LDL goal is less than 70. (4) Toxic multinodular goiter: Code(s): E05.20 - Thyrotoxicosis with toxic multinodular goiter without thyrotoxic crisis or storm Plan: Follow-up with surgeon Medications: New ezetimibe 10 mg PO DAILY 90 days 90 tabs 1RF ezetimibe 10 mg PO DAILY 90 days 90 tabs 0RF Changed From metformin ER 500 mg PO BID 90 days 180 tabs 5RF To metformin ER 2 tabs at am and 1 tab at pm 1,500 mg (3 x 500 mg) PO DAILY 90 days 270 tabs 2RF Coding Level of Care Code Tele Est Pt Level 4 (01473) Diagnoses Type 2 diabetes mellitus without complication, without long-term current use of insulin E11.9 Diabetes mellitus type: type 2 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
== END 2022-10-20 17:30 | disposition home or self-care (01) ==
LOC: HO.HMGH 16:39
PROVIDERS: PCP Internal Medicine; Visit Provider Internal Medicine
DX: E11.9 Type 2 diabetes mellitus without complications (principal); F33.0 Major depressive disorder, recurrent, mild; E05.20 Thyrotoxicosis with toxic multinodular goiter without thyrotoxic crisis or storm; E78.5 Hyperlipidemia, unspecified
CPT/HCPCS: 99442

== ENCOUNTER 2023-01-21 15:10 | Outpatient (AMB) | payer MEDICARE, BC, SELFPAY ==
[2023-01-21 15:15] VITALS: BP 120/80; BMI 33.6
--- NOTE | 2023-01-21 15:15 | A.OFFPC_ITS ---
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 Required: No Accompanied by: Self / Same As Patient Allergies amoxicillin Allergy (Intermediate, Verified 01/21/23 15:28) hives, hand swelling, itch, feet swelling Medication List - Last Reconciled 01/21/23 by Anna Magana MD aspirin 81 mg PO DAILY 90 days atorvastatin 80 mg PO BEDTIME 90 days blood sugar diagnostic (TapestryTouch Verio test strips) DIRECTED blood-glucose sensor (FreeStyle [place] 3 Sensor device) As directed change every 14 days svxknwadxm-nfifhqogsiztc-zzlb 50-325-40 mg 1 tab PO BID PRN 30 days cholecalciferol (vitamin D3) (D3-2000) 50 mcg PO DAILY clonazepam 0.5 mg PO DAILY 90 days duloxetine 120 mg (2 x 60 mg) PO DAILY 90 days fenofibrate nanocrystallized 145 mg PO DAILY 90 days glipizide 10 mg (2 x 5 mg) PO BID losartan 25 mg PO DAILY 30 days metformin ER 1,500 mg (3 x 500 mg) PO DAILY 90 days omeprazole 20 mg PO BID 90 days propranolol ER 80 mg PO DAILY Tobacco use date assessed: 04/02/22 Fall risk assessment: No Falls in past year Last assessed Fall Risk: 01/21/23 Dental Screening Dental Screen Date: 01/21/23 Did you have a dental visit in the last 12 months?: No Did you have a dental problem in the last 6 months where you did not have access to dental care?: No Was dental information given to patient?: Patient has dentist HPI HPI Comments History of Present Illness Details This is a 67-year-old female with diabetes mellitus type 2, hypertension, mixed hyperlipidemia and mild recurrent major depression that comes today for follow-up on her conditions. A1c not on goal and I will increase metformin. Patient has many doubts of using either Trulicity or Ozempic because it is an injection anxiety effect is nausea and vomiting. She will be seen Endocrinology next week. Blood pressure stable. Lipid panel will be order and LDL goal should be less than 70. Depression stable with duloxetine. [facility] Medical History (Updated 09/13/22 @ 10:19 by Anna Magana MD) Mild recurrent major depression Left knee pain Right hip pain Left hip pain GERD (gastroesophageal reflux disease) Hypovitaminosis D Migraines Mixed hyperlipidemia Obese Depression with anxiety Essential hypertension Hyperthyroidism Diabetes mellitus Hirsutism Vitamin D deficiency Essential hypertension Dyslipidemia Diabetes type 2, uncontrolled Toxic multinodular goiter Surgical History Previous back surgery Status post biopsy of thyroid gland Hx of removal of neck cyst History of back surgery Family History Father Hypertension Substance use disorder Mother Type 2 diabetes mellitus Lung cancer Social History Household Members: None Housing: House Alcohol intake: never Patient Tobacco Use Status: Former Tobacco user Tobacco use type: Cigarette e-Cigarette/Vaping Use: Never Used Second Hand Smoke Exposure: No service: No Current occupational status: retired Cognitive needs: Yes Hearing needs: No Vision needs: No Questionnaire Thrive Questionnaire Date Thrive assessed: 04/02/22 HAMMAD-7 AMB Questionnaire HAMMAD-7 Date HAMMAD - 7 assessed: 04/02/22 Source: Developed by Drs. Jun Moncada, Antonina Emery, Balta Lopez and colleagues, with an educational darío from [employer]. Review of Systems Const All systems reviewed & are unremarkable except as noted in HPI and below Eyes Reports no additional complaints, Denies change in vision and Denies other visual disturbances Card Denies chest pain at rest, Denies chest pain with activity, Denies edema, Denies irregular heart rhythm, Denies claudication, Denies dyspnea, Denies dyspnea on exertion, Denies orthopnea, Denies paroxysmal nocturnal dyspnea and Denies slow heart rate Resp Denies cough, Denies dyspnea and Denies dyspnea on exertion GI Denies abdominal pain, Denies change in bowel habits, Denies excessive flatus, Denies nausea and Denies vomiting Denies urinary incontinence, Denies urinary hesitancy and Denies urinary urgency Musc Denies abnormal gait, Denies atrophy, Denies deformity and Denies limited range of motion Skin/Breast Denies bleeding lesions, Denies changing lesions and Denies rash Neuro Denies abnormal gait, Denies behavioral changes and Denies lack of coordination Psych Denies behavioral changes Physical exam (Primary Care) Vital Signs: Last Vital Signs BP 120/80 01/21/23 15:15 BMI result Body Mass Index 33.6 Tobacco/Smoking Status: Tobacco use Status Tobacco use date assessed 04/02/22 01/21/23 15:21 Patient Tobacco Use Status Former Tobacco user 01/21/23 15:21 Tobacco use type Cigarette 01/21/23 15:21 e-Cigarette/Vaping Use Never Used 01/21/23 15:21 Thrive Assessment: Date of Thrive Assessment Date Thrive assessed 04/02/22 01/21/23 15:21 Eyes General: appearance normal, both eyes and all related structures Eyelids: Yes eyelids normal Conjunctivae: conjunctivae normal Neck Neck: Yes normal visual inspection and Yes supple Resp Effort & Inspection: normal respiratory effort Auscultation: clear to auscultation bilaterally Cardio Jugular venous distension: no JVD Rate: regular rate Rhythm: regular rhythm Heart sounds: S1 normal heart sound present and S2 normal heart sound present Extrem General: Yes full ROM Office Procedures Flu Questionnaire Does the patient have a severe egg allergy?: No Does the patient have severe life threatening allergies?: No Does the patient have a fever or illness today?: No Has the patient ever had Guillain-Henlawson Syndrome?: No Has the patient ever had any past reaction to a flu shot?: No Results AMB Hemoglobin A1c AMB Hemoglobin A1c 7.6 % Last Edit by LUPE Santana on 01/21/23 15:2 7 Immunizations flu vacc [id number] 6mos up(PF) 60 mcg(15 mcgx4)/0.5 mL IM syringe Performing Provider: Anna Magana MD [facility] Administered by: LUPE Santana on 01/21/23 15:50 Dose Route Admin Location Dispensed Lot Number Expiration Date NDC It Auditor 0.5 mL IM Left Deltoid 0.5 mL [id number] 08/09/23 [id number] FP Complete VIS Given Date VIS Provided VIS Publication Date 01/21/23 Single Vaccine 20 Eligibility Eligibility Date Funding Source Not VFC Eligible 01/21/23 Private Results Reviewed Results Reviewed: Laboratory Last Values Hgb A1c (Clinic) 7.6 % (4.0-6.0) H 01/21/23 15:21 Assessment and Plan Assessment & Plan (1) Diabetes mellitus: Code(s): E11.9 - Type 2 diabetes mellitus without complications Qualifiers: Diabetes mellitus type: type 2 Diabetes mellitus skilled nursing insulin use: without skilled nursing use Diabetes mellitus complication status: without complication Qualified Code(s): E11.9 - Type 2 diabetes mellitus without complications Plan: Continue glipizide. Increase metformin. A1c goal is equal or less than 7%. Follow-up with endocrinology. (2) Essential hypertension: Code(s): I10 - Essential (primary) hypertension Plan: Continue losartan. Blood pressure goal is equal or less than 130/80. (3) Mixed hyperlipidemia: Code(s): E78.2 - Mixed hyperlipidemia Plan: Continue statins and fibrates. LDL goal is less than 70. Repeat lipid panel. (4) Mild recurrent major depression: Code(s): F33.0 - Major depressive disorder, recurrent, mild Plan: Continue duloxetine. Orders: Orders AMB Hemoglobin A1c Today E11.9 - Type 2 diabetes mellitus without complications Lipid Panel Today E78.5 - Hyperlipidemia, unspecified Microalbumin, Random (w Creat) Today E11.9 - Type 2 diabetes mellitus without complications Vitamin D 25-OH Total Today E55.9 - Vitamin D deficiency, unspecified Influenza [id number] Immunization Today Z23 - Encounter for immunization Uric Acid Today M10.9 - Gout, unspecified Comprehensive [place]. Panel Fast Today E11.9 - Type 2 diabetes mellitus without complications Thyroid Stimulating Hormone Today E05.90 - Thyrotoxicosis, unspecified without thyrotoxic crisis or storm Medications: New metformin ER 1,000 mg PO BID 180 tabs 1RF 90 days E11.9 - Type 2 diabetes mellitus without complications lancets (OneTouch Delica Plus Lancet) As directed 100 ea 1RF E11.9 - Type 2 diabetes mellitus without complications Discontinued metformin ER 2 tabs at am and 1 tab at pm Discontinued Reason: Patient Completed Course 1,500 mg (3 x 500 mg) PO DAILY 90 days 270 tabs 2RF Coding Level of Care Code Est Pt Level 4 (65862) Diagnoses Type 2 diabetes mellitus without complication, without long-term current use of insulin E11.9 Diabetes mellitus type: type 2 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
== END 2023-01-21 15:51 | disposition home or self-care (01) ==
PROVIDERS: PCP Internal Medicine; Visit Provider Internal Medicine
DX: E11.9 Type 2 diabetes mellitus without complications (principal); I10 Essential (primary) hypertension; E78.2 Mixed hyperlipidemia; F33.0 Major depressive disorder, recurrent, mild; Z23 Encounter for immunization
CPT/HCPCS: 83036; 90471; 90686; 99214

== ENCOUNTER 2023-02-17 15:18 | Outpatient (AMB) | payer MEDICARE, BC, SELFPAY ==
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
[2023-02-17 15:45] VITALS: BP 132/74; PULSE 63; O2SAT 97; BMI 33.8
== END 2023-02-17 15:51 | disposition home or self-care (01) ==
PROVIDERS: PCP Internal Medicine; Visit Provider Psychiatry & Neurology Neurology
DX: I69.398 Other sequelae of cerebral infarction (principal); R41.89 Other symptoms and signs involving cognitive functions and awareness; G47.00 Insomnia, unspecified; G47.10 Hypersomnia, unspecified
CPT/HCPCS: 99204

== ENCOUNTER → 2023-02-17 15:18 | Outpatient (BNVA) | payer MEDICARE, BC, SELFPAY | PROVIDERS: PCP Internal Medicine; Visit Provider Psychiatry & Neurology Neurology | DX: I63.9 Cerebral infarction, unspecified (principal); R41.89 Other symptoms and signs involving cognitive functions and awareness; G47.00 Insomnia, unspecified; G47.10 Hypersomnia, unspecified | CPT/HCPCS: 99202 ==

== ENCOUNTER 2023-03-10 14:15 | Outpatient (REF) | payer MEDICARE, BC, SELFPAY ==
--- NOTE | ~2023-03-10 | US_ITS ---
EXAMINATION: US EXTRACRANIAL CAROTID DUPLEX, BILATERAL CLINICAL INFORMATION: Cerebral infarction COMPARISON: None available. TECHNIQUE: Real-time ultrasound and Doppler techniques (integrating B-mode 2-D vascular images, Doppler spectral analysis and color-flow Doppler imaging) were utilized to interrogate the extracranial carotid arteries, the vertebral arteries and proximal subclavian arteries bilaterally. The degree of stenosis is determined by criteria similar to NASCET. FINDINGS: Right Side: 1. There is mild atherosclerotic plaque seen in the bifurcation/proximal ICA region. 2. The common carotid artery PSV proximally is 77 cm/s and distally 67 cm/s. 3. The proximal internal carotid artery velocities are 84.4 cm/s systolic and 25.8 cm/s diastolic. 4. The proximal external carotid artery PSV is 115 cm/s. 5. The vertebral artery shows antegrade flow. 6. The subclavian artery waveforms are normal. Left Side: 1. There is mild atherosclerotic plaque seen in the bifurcation/proximal ICA region. 2. The common carotid artery PSV proximally is 100 cm/s and distally 96 cm/s. 3. The proximal internal carotid artery velocities are 92.0 cm/s systolic and 24.6 cm/s diastolic. 4. The proximal external carotid artery PSV is 119 cm/s. 5. The vertebral artery shows antegrade flow. 6. The subclavian artery waveforms are normal. US/US carotid duplex BI IMPRESSION: 1. RIGHT: Minimal, non-hemodynamically significant stenosis of the proximal right internal carotid artery corresponding to a 0-49% stenosis by velocity criteria. 2. LEFT: Minimal, non-hemodynamically significant stenosis of the proximal left internal carotid artery corresponding to a 0-49% stenosis by velocity criteria.
== END 2023-03-10 14:16 | disposition home or self-care (01) ==
LOC: HO.HMGCX 14:15
PROVIDERS: PCP Internal Medicine; Visit Provider Psychiatry & Neurology Neurology
DX: I63.9 Cerebral infarction, unspecified (principal); I65.23 Occlusion and stenosis of bilateral carotid arteries
CPT/HCPCS: 93880

== ENCOUNTER → 2023-04-07 15:52 | Outpatient (REF) | payer MEDICARE, BC, SELFPAY | LOC: HO.SL 15:52 | PROVIDERS: PCP Internal Medicine; Visit Provider Psychiatry & Neurology Neurology | DX: Z13.89 Encounter for screening for other disorder (principal) ==

== ENCOUNTER 2023-05-13 11:54 | Outpatient (AMB) | payer MEDICARE, BC, SELFPAY ==
[2023-05-13 11:58] VITALS: BP 134/80; PULSE 62; O2SAT 96; BMI 33.4
--- NOTE | 2023-05-13 11:58 | MHC.PC.OV ---
Vital Signs 05/13/23 11:58 Height 5 ft 8 in Weight 99.79 kg BMI 33.4 BP 134/80 Blood Pressure Location Lt brachial Position Sitting Pulse 62 Pulse Source Pulse Oximeter Pulse Oximetry (%) 96 Oxygen Delivery Method Room Air Intake Visit Reasons: [facility] HDF/CVA D/C 04/26 Manager Mobility Required: No Flexo Operator: Not Required per policy Accompanied by: Self / Same As Patient Allergies amoxicillin Allergy (Intermediate, Verified 05/13/23 11:58) hives, hand swelling, itch, feet swelling Tobacco use date assessed: 05/13/23 Fall risk assessment: 2 + Falls in past year Last assessed Fall Risk: 05/13/23 Dental Screening Dental Screen Date: 05/13/23 Did you have a dental visit in the last 12 months?: No Did you have a dental problem in the last 6 months where you did not have access to dental care?: No Was dental information given to patient?: Patient has dentist HPI HPI Comments History of Present Illness Details 67-year-old female with history of CVA, hypertension, hyperlipidemia, migraine, goiter, mood disorder, and obesity with BMI greater than 33 presents to the office today for hospital discharge follow-up. Discharge medications have been reviewed and reconciled. She was admitted to [facility] from 04/23-04/26 after developing headache, confusion, nausea, and aphasia. She was outside of window for T and K therapy. Initial CT of the head was nonacute and CTA of the head/neck was negative for large vessel occlusions which shows some vertebral calcifications. She did have EEG performed which was abnormal with disorganization and sharps but video EEG was unremarkable. Neurology team did follow and mentation returned to baseline. Epilepsy was ruled out. MRI of the brain with and without contrast was performed showing subacute left temporal and left temporal-occipital junction lacunar infarcts. There is also subtle petechial hemorrhage/hemorrhagic transformation related to the left temporal-occipital infarct. There also chronic infarcts noted as well as chronic microangiopathy slaps small vessel ischemic changes. She did have echocardiogram performed showing hyperdynamic LV systolic function with grade 2 diastolic dysfunction and moderate to severe mitral annular calcifications but no other significant abnormalities and no specific embolic source. Hemoglobin A1c was 7.9%, LDL 149. She was discharged home on atorvastatin, 81 mg ASA daily. She was discharged home without services as symptoms had returned to baseline. She reports she has been compliant with statin but has not been taking baby aspirin. She states she has been taking ibuprofen instead on a daily basis. She continues to experience daily left temporal headaches that radiate across the frontal scalp. Denies any occipital pain. Reports associated photophobia and blurred vision with the headaches. She states these occur about 4 times weekly and she takes Fioricet. States these are consistent with prior headaches though possibly increased in frequency. She does have neurology appointment on 05/[address] Saldana. [facility] Medical History (Updated 05/17/23 @ 18:17 by CHARI Laughlin) Anxiety Hypersomnia Insomnia Mild recurrent major depression Left knee pain Right hip pain Left hip pain GERD (gastroesophageal reflux disease) Hypovitaminosis D Migraines Mixed hyperlipidemia Obese Depression with anxiety Essential hypertension Hyperthyroidism Diabetes mellitus Hirsutism Vitamin D deficiency Essential hypertension Dyslipidemia Diabetes type 2, uncontrolled Toxic multinodular goiter Surgical History Previous back surgery Status post biopsy of thyroid gland Hx of removal of neck cyst History of back surgery Family History Father Hypertension Substance use disorder Mother Type 2 diabetes mellitus Lung cancer Social History Household Members: None Housing: House Alcohol intake: never Patient Tobacco Use Status: Former Tobacco user Tobacco use type: Cigarette e-Cigarette/Vaping Use: Never Used Second Hand Smoke Exposure: No service: No Current occupational status: retired Cognitive needs: Yes Hearing needs: No Vision needs: No Questionnaire Thrive Questionnaire Date Thrive assessed: 05/13/23 I am a: Patient What is your living situation today?: I have a steady place to live Within the past 12 months, did the food you bought not last and you didn't have the money to get more?: Never true Within the past 12 months, did you worry whether your food would run out before you got money to buy more?: Never true Do you have trouble paying for medicines?: No Do you have trouble getting transportation to medical appointments?: No Do you have trouble paying your heating and electricity bill?: No Do you have trouble taking care of your child, family member or friend?: No Do you have trouble with day-to-day activities such as bathing, preparing meals, shopping, managing finances, etc.?: No Are you currently unemployed and looking for a job?: No Are you interested in more education?: No Please select the resources that you would like help with: None THRIVE Score: 0 AUDIT C Alcohol Use Questionnaire (AUDIT-C) 1. How often do you have a drink containing alcohol?: Never Total Score: 0 HAMMAD-7 AMB Questionnaire HAMMAD-7 Date HAMMAD - 7 assessed: 05/13/23 Source: Developed by Drs. Jun Moncada, Antonina Emery, Balta Lopez and colleagues, with an educational darío from [employer]. Review of Systems Const All systems reviewed & are unremarkable except as noted in HPI and below Physical exam (Primary Care) Vital Signs: Last Vital Signs Pulse 62 05/13/23 11:58 BP 134/80 05/13/23 11:58 Pulse Ox 96 05/13/23 11:58 Oxygen Delivery Method Room Air 05/13/23 11:58 BMI result Body Mass Index 33.4 Tobacco/Smoking Status: Tobacco use Status Tobacco use date assessed 05/13/23 05/13/23 12:00 Patient Tobacco Use Status Former Tobacco user 05/13/23 12:00 Tobacco use type Cigarette 05/13/23 12:00 e-Cigarette/Vaping Use Never Used 05/13/23 12:00 Thrive Assessment: Date of Thrive Assessment Date Thrive assessed 05/13/23 05/13/23 12:00 Const Other: Constitutional - Awake and Alert, No apparent distress Eyes - PERRLA, EOMI Cardiovascular - S1S2, RRR, No edema Respiratory - Normal lung expansion, Normal respiratory effort, No respiratory distress, CTA bilaterally Extremities - no calf tenderness bilaterally, no swelling Skin - Warm/Dry Neurological - Alert & oriented x3, CN II-XII in tact, 5/5 strength BUE and BLE Psychological - Appropriate affect Results AMB Hemoglobin A1c AMB Hemoglobin A1c 7.7 % Last Edit by LUPE Murphy on 05/13/23 12:11 Results Reviewed Results Reviewed: Laboratory Last Values Hgb A1c (Clinic) 7.7 % (4.0-6.0) H 05/13/23 12:00 CBC, BMP, CT head, CTA head/neck, MRI brain with/without contrast, video eeg report, echocardiogram report, neurology consult, discharge summary Assessment and Plan Assessment & Plan (1) CVA (cerebral vascular accident): Comment: MRI 12/2021 There is a tiny acute white matter infarct involving the right external capsule. 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 April 2023- MRI brain with/without contrast from [facility] showed subacute left temporal and left temporal-occipital junction lacunar infarcts as well as subtle petechial hemorrhage/hemorrhagic transformation related to the left temporal-occipital infarct as well as chronic changes previously noted. 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 However in light of recent stroke, would recommend hemoglobin A1c less than 7.0% to reduce stroke risk Educated on diabetic diet and advised stricter compliance Continue metformin 500 mg twice daily, glipizide 10 mg twice daily Increased exercise Check fasting glucose daily, goal 90-130 (3) Mixed hyperlipidemia: Code(s): E78.2 - Mixed hyperlipidemia Plan: Uncontrolled with LDL 147, goal less than 70 Continue atorvastatin 80 mg daily Work on improving low-fat diet and increased exercise (4) Chronic daily headache: Code(s): R51.9 - Headache, unspecified Plan: Consistent with migraine/tension type headache. Concern for rebound headaches given daily ibuprofen use for headache management Advised to discontinue ibuprofen. Take aspirin on a daily basis as above Can use Fioricet as needed as well as Tylenol Follow-up with neurology as scheduled Recommend avoiding screen time and light given exacerbation of symptoms around these stimuli Orders: Orders AMB Hemoglobin A1c 05/13/23 E11.9 - Type 2 diabetes mellitus without complications Coding Level of Care Code Est Pt Level 5 (14842) Diagnoses CVA (cerebral vascular accident) I63.9 Type 2 diabetes mellitus without complication, without long-term current use of insulin E11.9 Diabetes mellitus complication status: without complication Diabetes mellitus care home insulin use: without care home use Diabetes mellitus type: type 2 Mixed hyperlipidemia E78.2 Chronic daily headache R51.9 Time Spent (min) 43 Comment Time spent reviewing as above, interview/exam patient, documentation time.
== END 2023-05-13 12:33 | disposition home or self-care (01) ==
PROVIDERS: PCP Internal Medicine; Visit Provider Physician Assistant
DX: E11.9 Type 2 diabetes mellitus without complications (principal)
CPT/HCPCS: 83036; 99215

== ENCOUNTER 2023-05-21 14:21 | Outpatient (AMB) | payer MEDICARE, BC, SELFPAY ==
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
[2023-05-21 14:24] VITALS: BP 152/88; PULSE 75; RESP 16; O2SAT 97
== END 2023-05-21 14:46 | disposition home or self-care (01) ==
PROVIDERS: PCP Internal Medicine; Visit Provider Psychiatry & Neurology Neurology
DX: I69.398 Other sequelae of cerebral infarction (principal); R41.89 Other symptoms and signs involving cognitive functions and awareness; G47.00 Insomnia, unspecified; G47.10 Hypersomnia, unspecified
CPT/HCPCS: 99214

== ENCOUNTER → 2023-05-21 14:21 | Outpatient (BNVA) | payer MEDICARE, BC, SELFPAY | PROVIDERS: PCP Internal Medicine; Visit Provider Psychiatry & Neurology Neurology | DX: R41.89 Other symptoms and signs involving cognitive functions and awareness (principal); G47.00 Insomnia, unspecified; G47.10 Hypersomnia, unspecified; Z86.73 Personal history of transient ischemic attack (TIA), and cerebral infarction without residual deficits | CPT/HCPCS: 99212 ==

== ENCOUNTER 2023-07-02 12:14 | Outpatient (AMB) | payer MEDICARE, BC, SELFPAY ==
[2023-07-02 12:34] VITALS: BP 140/90; BMI 33.1
--- NOTE | 2023-07-02 12:34 | AM.OFFVISMDC ---
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 Depression has been stable with duloxetine and this is follow by Psychiatry. A1c close to goal and dietary changes were advised. She had history of a stroke but does not require any assistive device to move. Declines colonoscopy and will have Cologuard. Declines mammogram for now. I will order bone density test. PPP handed to patient. [facility] Medical History (Updated 07/02/23 @ 14:29 by Anna Magana MD) Anxiety Hypersomnia Insomnia Mild recurrent major depression Left knee pain Right hip pain Left hip pain GERD (gastroesophageal reflux disease) Hypovitaminosis D Migraines Mixed hyperlipidemia Obese Depression with anxiety Essential hypertension Hyperthyroidism Diabetes mellitus Hirsutism Vitamin D deficiency Essential hypertension Dyslipidemia Diabetes type 2, uncontrolled Toxic multinodular goiter Surgical History Previous back surgery Status post biopsy of thyroid gland Hx of removal of neck cyst History of back surgery Family History Father Hypertension Substance use disorder Mother Type 2 diabetes mellitus Lung cancer Social History Household Members: None Housing: House Alcohol intake: never Patient Tobacco Use Status: Former Tobacco user Tobacco use type: Cigarette e-Cigarette/Vaping Use: Never Used Second Hand Smoke Exposure: No service: No Current occupational status: retired Cognitive needs: Yes Hearing needs: No Vision needs: No Questionnaire Medicare Wellness Checkup [age] What gender do you identify with?: female During the past 4 weeks, how much have you been bothered by emotional problems such as feeling anxious, depressed, irritable, sad or downhearted, and blue?: quite a bit During the past 4 weeks, has your physical & emotional health limited your social activities with family, friends, neighbors, or groups?: extremely During the past 4 weeks, how much bodily pain have you generally had?: severe pain During the past 4 weeks, was someone available to help you if you needed & wanted help?: yes, a little During the past 4 weeks, what was the hardest physical activity you could do for at least 2 minutes?: light Can you get to places out of walking distance without help? (For eg., can you travel alone on buses, taxis or drive your car?): No Can you go shopping for groceries or clothes without someone's help?: No Can you prepare your own meals?: Yes Can you do your housework without help?: Yes Because of any health problems, do you need the help of another person with your personal care needs such as eating, bathing, dressing or getting around the house?: No Can you handle your own money without help?: Yes During the past 4 weeks, how would you rate your health in general?: fair During the past 4 weeks how have things been going for you?: good & bad parts about equal Are you having difficulties driving your car?: not applicable, I don't use a car Do you always fasten your seat belt when you are in a car?: yes, usually During past 4 weeks, have you been bothered by the following: never: Sexual problems?, seldom: Falling or dizzy when standing up and Problems using the telephone?, sometimes: Trouble eating well? and always: Teeth or denture problems? and Tiredness or fatigue? Have you fallen 2 or more times in the past year?: No Are you afraid of falling?: Yes Are you a smoker?: no During the past 4 weeks, how many drinks of wine, beer, or other alcoholic beverages did you have?: no alcohol at all Do you exercise for about 20 minutes 3 or more times a week?: no, I usually do not exercise this much Have you been given information to help with the following?: no: Hazards in your house that might hurt you? and no: Keeping track of your medications? How often do you have trouble taking medicines the way you have been told to take them?: I always take medicine as prescribed How confident are you that you can control & manage most of your health problems?: not very confident What is your race?: White Mini Mental State Exam (MMSE) Orientation What is the (year) (season) (date) (day) (month)?: year, season, date, day and month Where are we (state) (county) (town or city) (hospital) (floor)?: state, county, town or city, hospital/clinic and floor Registration Name of 3 unrelated objects clearly and slowly, then ask patient to repeat all 3 of them. (1st repeat determines score. Make sure they can repeat all three): object 1, object 2 and object 3 Attention & Calculation (CHOOSE ONE) Spell WORLD backwards (DLROW): 5 letters Recall Ask patient to repeat the 3 items from question #3.: object 1, object 2 and object 3 Language Show patient a wristwatch & ask what it is. Repeat for pencil.: watch and pencil Ask the patient to repeat the phrase 'No ifs, ands, or buts' after you.: correct Ask the patient to 'take a piece of paper with their right hand' 'fold paper in half' 'place paper on floor': take paper in right hand, fold paper in half and place paper on floor Print the sentence 'CLOSE YOUR EYES' on a piece. If patient actually closes eyes then score.: followed written direction Give patient a blank piece of paper & ask to write a sentence. Score if it contains a noun & verb.: sentence contains subject and verb Ask patient to copy figure of intersecting pentagons exactly. Score if all 10 angles & 2 intersects are included.: all 10 angles present & 2 are intersected Score Score: 30 Activity of Daily Living Bathing - sponge bath, tub bath or shower: receives no assistance (gets in/out by self, if usual bathing means Dressing - getting clothes from closets & drawers, including inner/outer garments & fasteners.: gets clothes & gets completely dressed without help Transfer: moves in & out of bed and chair without help (may use support object) Continence: controls urination/bowel movements completely by self Feeding: feeds self without help Total Score: 0 Information obtained from: patient Using telephone: independent Traveling: dependent Shopping: dependent Preparing meals: dependent Housework: dependent Taking medicine: independent Managing money: needs assistance PHQ-9 Over the last 2 weeks, how often have you been bothered by any of the following problems? 1. Little interest or pleasure in doing things: more than half the days 2. Feeling down, depressed, or hopeless: several days 3. Trouble falling or staying asleep, or sleeping too much: nearly every day 4. Feeling tired or having little energy: nearly every day 5. Poor appetite or overeating: nearly every day 6. Feeling bad about yourself - or that you are a failure or have let yourself or your family down: nearly every day 7. Trouble concentrating on things, such as reading the newspaper or watching television: more than half the days 8. Moving or speaking so slowly that other people could have noticed. Or the opposite - being so fidgety or restless that you have been moving around a lot more than usual: nearly every day 9. Thoughts that you would be better off or of hurting yourself in some way: not at all Total score: 20 Depression Screening Interpretation: Positive Depression Screening Follow-up: Existing condition, In treatment, Community Mental Health Worker F/U and Follow-up Visit Requested Depression Screening Done: Yes Source: Developed by Drs. Jun Moncada, Antonina Emery, Balta Lopez and colleagues, with an educational darío from [employer]. HAMMAD-7 AMB Questionnaire HAMMAD-7 Date HAMMAD - 7 assessed: 07/02/23 Feeling nervous, anxious, or on edge: 2 = More than half the days Not being able to stop or control worryin = Not at all Worrying too much about different things: 3 = Nearly every day Trouble relaxin = Several days Being so restless that it is hard to sit still: 0 = Not at all Becoming easily annoyed or irritable: 1 = Several days Feeling afraid as if something awful might happen: 3 = Nearly every day Total HAMMAD-7 score (0-4 normal; 5-9 mild; 10-14 moderate; 15-21 severe): 10 Source: Developed by Drs. Jun Moncada, Antonina Emery, Balta Lopez and colleagues, with an educational darío from [employer]. HAMMAD-7 Assessment Billing HAMMAD-7 Assessment Tool: HAMMAD-7 Assessment 17833 Fall Risk Assessment Fall Risk Assessment Fall risk assessment: No Falls in past year Thrive Questionnaire Date Thrive assessed: 07/02/23 I am a: Patient What is your living situation today?: I have a steady place to live Within the past 12 months, did the food you bought not last and you didn't have the money to get more?: Never true Within the past 12 months, did you worry whether your food would run out before you got money to buy more?: Never true Do you have trouble paying for medicines?: No Do you have trouble getting transportation to medical appointments?: No Do you have trouble paying your heating and electricity bill?: No Do you have trouble taking care of your child, family member or friend?: No Do you have trouble with day-to-day activities such as bathing, preparing meals, shopping, managing finances, etc.?: No Are you currently unemployed and looking for a job?: No Are you interested in more education?: No Please select the resources that you would like help with: None Currently or been in a relationship where the following occur: no concerns reported THRIVE Score: 0 AUDIT C Alcohol Use Questionnaire (AUDIT-C) 1. How often do you have a drink containing alcohol?: Never Total Score: 0 Score Reviewed/Action Taken: No Review of Systems Const All systems reviewed & are unremarkable except as noted in HPI and below Eyes Reports no additional complaints, Denies change in vision and Denies other visual disturbances Card Denies chest pain at rest, Denies chest pain with activity, Denies edema, Denies irregular heart rhythm, Denies claudication, Denies dyspnea, Denies dyspnea on exertion, Denies orthopnea, Denies paroxysmal nocturnal dyspnea and Denies slow heart rate Resp Denies cough, Denies dyspnea and Denies dyspnea on exertion GI Denies abdominal pain, Denies change in bowel habits, Denies excessive flatus, Denies nausea and Denies vomiting Denies urinary incontinence, Denies urinary hesitancy and Denies urinary urgency Neuro Denies confusion Psych Denies confusion Physical Exam Vital Signs: Last Vital Signs BP 140/90 H 07/02/23 12:34 BMI result Body Mass Index 33.1 Const General: No confusion Orientation/consciousness: patient oriented x3 and No confusion Resp Effort & Inspection: normal respiratory effort Auscultation: clear to auscultation bilaterally Cardio Jugular venous distension: no JVD Rate: regular rate Rhythm: regular rhythm Heart sounds: S1 normal heart sound present and S2 normal heart sound present Neuro General: patient oriented x3, no focal motor deficits and No confusion Gait exam (Neuro): Normal gait present Romberg Test: Negative Extrem General: Yes full ROM Assessment & Plan Assessment & Plan (1) Encounter for Medicare annual wellness exam: Code(s): Z00.00 - Encounter for general adult medical examination without abnormal findings Plan: Repeat in a year. (2) CVA (cerebral vascular accident): Comment: MRI 12/2021 There is a tiny acute white matter infarct involving the right external capsule. 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 April 2023- MRI brain with/without contrast from [facility] showed subacute left temporal and left temporal-occipital junction lacunar infarcts as well as subtle petechial hemorrhage/hemorrhagic transformation related to the left temporal-occipital infarct as well as chronic changes previously noted. Code(s): I63.9 - Cerebral infarction, unspecified Plan: Continue aspirin for secondary prophylaxis. (3) Diabetes mellitus: Code(s): E11.9 - Type 2 diabetes mellitus without complications Qualifiers: Diabetes mellitus type: type 2 Diabetes mellitus mcc insulin use: without long term care social worker use Diabetes mellitus complication status: without complication Qualified Code(s): E11.9 - Type 2 diabetes mellitus without complications Plan: Continue metformin and glipizide. A1c goal is equal or less than 7%. (4) Mild recurrent major depression: Code(s): F33.0 - Major depressive disorder, recurrent, mild Plan: Continue duloxetine. Follow-up with psychiatry. Patient denies any suicidal thoughts. Orders: Orders Microalbumin, Random (w Creat) Today E11.9 - Type 2 diabetes mellitus without complications Vitamin D 25-OH Total Today E55.9 - Vitamin D deficiency, unspecified Lipid Panel Today E78.5 - Hyperlipidemia, unspecified Comprehensive [place]. Panel Fast Today I63.9 - Cerebral infarction, unspecified Referrals Speech and Hearing Referral H91.92 - Unspecified hearing loss, left ear Cologuard Test Z12.11 - Encounter for screening for malignant neoplasm of colon, Z12.12 - Encounter for screening for malignant neoplasm of rectum Quality Reporting (2019) Fall Risk Screening ([facility] 139) Fall risk assessment: No Falls in past year Depression/Bipolar (159/160/161/177) PHQ-9: Total score: 20 Coding Level of Care Code Medicare First (G0438) Diagnoses Encounter for Medicare annual wellness exam Z00.00 CVA (cerebral vascular accident) I63.9 Type 2 diabetes mellitus without complication, without long-term current use of insulin E11.9 Diabetes mellitus type: type 2 Diabetes mellitus long term care social worker insulin use: without mcc use Diabetes mellitus complication status: without complication Mild recurrent major depression F33.0 CPT Codes Advance Care Planning - Time spent: 1-15 minutes, on File ([id number]) Additional Codes HAMMAD-7 Assessment Billing - HAMMAD-7 Assessment Tool: HAMMAD-7 Assessment 06233 ([id number]) Time Spent (min) 35 Advance Care Planning Advance Care Planning discussion: Exists, not on file Date of discussion: 07/02/23 Who was present: patient and me Forms completed: Health Care Proxy Time spent: 1-15 minutes, on File Actual minutes spent: 1
== END 2023-07-02 13:28 | disposition home or self-care (01) ==
PROVIDERS: PCP Internal Medicine; Visit Provider Internal Medicine
DX: Z00.00 Encounter for general adult medical examination without abnormal findings (principal); Z86.73 Personal history of transient ischemic attack (TIA), and cerebral infarction without residual deficits; E11.9 Type 2 diabetes mellitus without complications; F33.0 Major depressive disorder, recurrent, mild
CPT/HCPCS: 1123F; G0438

== ENCOUNTER 2023-07-15 14:22 | Outpatient (AMB) | payer MEDICARE, BC, SELFPAY ==
[2023-07-15 14:25] VITALS: BP 152/78; PULSE 65; BMI 33.7
--- NOTE | 2023-07-15 14:25 | MHC.OFFVIS ---
Vital Signs 07/15/23 14:25 Height 5 ft 8 in Weight 221 lb 5.506 oz BMI 33.7 BP 152/78 H Blood Pressure Location Lt brachial Position Sitting Pulse 65 Pulse Source Pulse Oximeter Intake Visit Reasons: f/u Type 2 DM and Toxic MNG/lvm Intake Note: Patient presents today to follow up on D2MT and Toxic MNG. Last Diabetic Eye exam: About 2 years ago Last Podiatry Visit:01/2023 Random Glucose: 170 mg/dl HgA1c: 7.7% 05/13/23 Network Specialist Required: No Accompanied by: Self / Same As Patient Allergies amoxicillin Allergy (Intermediate, Verified 07/15/23 14:31) hives, hand swelling, itch, feet swelling Medication List - Last Reconciled 07/15/23 by Jun Shen MD aspirin 81 mg PO DAILY 90 days atorvastatin 80 mg PO BEDTIME 90 days blood sugar diagnostic (Aito BVTouch Verio test strips) DIRECTED blood-glucose sensor (FreeStyle Parish 3 Sensor device) As directed change every 14 days [id number] 50-325-40 mg 1 tab PO BID PRN 30 days cholecalciferol (vitamin D3) (D3-2000) 50 mcg PO DAILY clindamycin HCl 300 mg PO Q8H 7 days clonazepam 0.5 mg PO DAILY 90 days duloxetine 120 mg (2 x 60 mg) PO DAILY 90 days fenofibrate nanocrystallized 145 mg PO DAILY 90 days glipizide 10 mg (2 x 5 mg) PO BID lancets (OneTouch Delica Plus Lancet) Check blood glucose 4 times per day, before and after breakfast and dinner. losartan 25 mg PO DAILY metformin ER 500 mg PO BID omeprazole 20 mg PO BID 90 days propranolol ER 80 mg PO DAILY sumatriptan succinate 25 mg PO Q2-4H PRN 30 days HPI Comments Details: 68 yo female for visit today , for toxic multinodular goiter and diabetes . She is feeling better. Unfortunately Has not been checking blood sugars. Did not bring log book or glucometer to follow-up visit She had fine-needle aspiration on 03/08/2020 of right mid pole nodule and the right lower pole nodule both nodules were benign follicular nodule [place] category 2. . She had fine-needle aspiration of right mid pole on 10/21/2018 cytology was consistent with benign follicular nodule [place] category 2. She has DM type 2 diagnosed 2004. This she is Currently on glipizide 10 mg bid, metformin ER 500 mg bid and Ozempic 0.25 mg not taking . She did not tolerated higher dose. She also has Toxic multinodular goiter , off MMI She had FNA of right mid pole nodule size 2.5 x 1.7 x 1.6 on 09/26/16 consistent with benign follicular nodule. More recently, thyroid ultrasound showed FINDINGS: ? SIZE: Measurements of the thyroid lobes and nodules are given in sagittal, anteroposterior and transverse dimensions respectively. Right Thyroid Lobe: 7.1 x 2.3 x 2.9 cm, volume 24.8 mL. Previously 6.6 x 2.8 x 3.5 cm, volume 33.2 mL. Parenchyma: The gland echotexture is heterogeneous. Thyroid vascularity is increased. Left Thyroid Lobe: 9.5 x 3.7 x 4.3 cm, volume 79.1 mL. Previously 8.4 x 3.4 x 3.6 cm, volume 54.0 mL. Parenchyma: The gland echotexture is heterogeneous. Thyroid vascularity is increased. Isthmus: 1.8 cm in maximum AP dimension. Previously 1.8 cm. Estimated total number of nodules greater than or equal to 1 cm: 3. Business Director nodules are described as follows: 1.? Location: Right superior. ?? ? Size: 0.8 x 0.4 x 0.6 cm, volume 0.11 mL. ?? ? Previously: 1.5 x 0.8 x 1.1 cm, volume 0.69 mL. ?? ? Nodule characteristics: ?? ? Composition: Solid (2). ?? ? Echogenicity: Isoechoic (1). ?? ? Shape: Not taller than wide (0). ?? ? Margins: Ill-defined (0). ?? ? Echogenic Foci: None (0). ? ACR TI-RADS total points: 3 ?? ? ACR TI-RADS category: 3 ? Significant change in size (>/= 20% in 2 dimensions and minimal increase of 2 mm or 50% or greater increase in volume): Cannot compare. Previously there were 2 separate nodules and appear merged. ?? ? Change in features: Appears more complex this time ?? ? Change in ACR TI-RADS risk category: 2.? Location: Right mid/inferior medial. ?? ? Size: 4.7 x 2.0 x 4.4 cm, volume 21.9 mL. ?? ? Previously: Previously measured as 2 separate nodules. ?? ? Nodule characteristics: ?? ? Composition: Solid (2). ?? ? Echogenicity: Hypoechoic (2). ?? ? Shape: Not taller than wide (0). ?? ? Margins: Irregular (2). ?? ? Echogenic Foci: None (0).? ACR TI-RADS total points: 6 ?? ? ACR TI-RADS category: 4 ? Significant change in size (>/= 20% in 2 dimensions and minimal increase of 2 mm or 50% or greater increase in volume): Not applicable. ?? ? Change in features: Not applicable. ?? ? Change in ACR TI-RADS risk category: Not applicable. 3.? Location: Left inferior. ?? ? Size: 8.1 x 4.3 x 5.5 cm, volume 100 mL. ?? ? Previously: Not documented on the prior study. ?? ? Nodule characteristics: ?? ? Composition: Solid (2). ?? ? Echogenicity: Hypoechoic (2). ?? ? Shape: Not taller than wide (0). ?? ? Margins: Extrathyroidal extension (3). ?? ? Echogenic Foci: None (0). ? ACR TI-RADS total points: 7 ?? ? ACR TI-RADS category: 5 ?? ? 4.? Location: Left superior. ?? ? Size: 3.6 x 1.8 x 2.8 cm, volume 9.4 mL. ?? ? Previously: Not documented on the prior study. ?? ? Nodule characteristics: ?? ? Composition: Solid (2). ?? ? Echogenicity: Hypoechoic (2). ?? ? Shape: Not taller than wide (0). ?? ? Margins: Smooth (0). ?? ? Echogenic Foci: Macrocalcifications (1). ? ACR TI-RADS total points: 5 ?? ? ACR TI-RADS category: 4 ?? ? NODES: No lymphadenopathy is seen in the tissue surrounding the thyroid gland. She has neuropathy, not known nephropathy, or retinopathy, pending dilated eye exam. No macrovascular complications. Last ophthalmology evaluation: She reports she had dilated eye exam . She reports no retinopathy. Positive nocturia 2-3 times, positive polydipsia, polyuria, denies numbness, improved insomnia, + anxiety, she has profuse sweating all the time since she has a child , she denies diarrhea, constipation. no tremors, no tremors. Denies cold or heat intolerance,positive fatigue, denies dysphagia, dyspnea, dysphonia. She denies mouth ulcers, abdominal pain, jaundice, rash. She is having issues sleeping at night and falls asleep during the day Laboratory Tests 09/02/18 09/02/18 09/02/18 15:20 15:20 15:20 Sodium 137 Potassium 4.4 Creatinine 0.78 Est GFR (Non-Af Amer) > 60 POC Glucose Hemoglobin A1c 8.9 AST 21 ALT 20 Albumin 4.8 LDL Cholesterol Direct 133 H 25-OH Vitamin D Total 16.9 TSH Free T4 Free T3 2.8 Total T3 TSH 3rd Generation 0.43 11/02/18 12/30/19 12/30/19 15:13 10:48 10:48 Sodium Potassium Creatinine Est GFR (Non-Af Amer) POC Glucose 247 H Hemoglobin A1c AST ALT Albumin LDL Cholesterol Direct 25-OH Vitamin D Total TSH 1.02 Free T4 0.98 Free T3 Total T3 96 TSH 3rd Generation she has a large left lobe that extends substernally. [facility] Medical History (Updated 07/02/23 @ 14:29 by Anna Magana MD) Anxiety Hypersomnia Insomnia Mild recurrent major depression Left knee pain Right hip pain Left hip pain GERD (gastroesophageal reflux disease) Hypovitaminosis D Migraines Mixed hyperlipidemia Obese Depression with anxiety Essential hypertension Hyperthyroidism Diabetes mellitus Hirsutism Vitamin D deficiency Essential hypertension Dyslipidemia Diabetes type 2, uncontrolled Toxic multinodular goiter Surgical History Previous back surgery Status post biopsy of thyroid gland Hx of removal of neck cyst History of back surgery Family History Father Hypertension Substance use disorder Mother Type 2 diabetes mellitus Lung cancer Social History Household Members: None Housing: House Alcohol intake: never Patient Tobacco Use Status: Former Tobacco user Tobacco use type: Cigarette e-Cigarette/Vaping Use: Never Used Second Hand Smoke Exposure: No service: No Current occupational status: retired Cognitive needs: Yes Hearing needs: No Vision needs: No Physical Exam Vital Signs: Last Vital Signs Pulse 65 07/15/23 14:25 BP 152/78 H 07/15/23 14:25 BMI result Body Mass Index 33.7 Absence of Cushingoid features. Absence of acromegalic features. Neck exam reveals . The lower border of the left lower cannot be palpated. No thyroid nodules palpable. No carotid bruits present. Lungs CTA. Heart S1 S2, Reg R/R. No M/R/ G. Skin exam reveals absence of vitiligo or acanthosis nigricans. Abdominal exam reveals Soft NT/ND with NA BS. No organomegaly present. Neck Other: . Extrem Other: Patient refused foot exam say she was seen health information tech in a couple of days Assessment & Plan Assessment & Plan (1) Diabetes type 2, uncontrolled: Code(s): E11.65 - Type 2 diabetes mellitus with hyperglycemia Category: Medical Qualifiers: Glycemic state: with hyperglycemia Qualified Code(s): E11.65 - Type 2 diabetes mellitus with hyperglycemia Plan: This 66-year-old white female with a history of type 2 diabetes with control on sub maximal doses of metformin, Trulicity and glipizide with excellent proved glycemic control and no known microvascular or macrovascular complications Plan is that the patient check her point of cares pre and post breakfast and dinner. I attempted to prescribe her Parish 3 although I do not think it will be covered by insurance the patient states she will pay [id number] for. I will schedule appointment with our ict educator . . I started Mounjaro 2.5 mg Q weekly. We went over the side effects of Mounjaro including but not limited to nausea, vomiting and rare risk of pancreatitis. I also told her to place the sensor or do frequent fingersticks before starting the Mounjaro because of the risk of hypoglycemia with the sulfonylurea (2) Toxic multinodular goiter: Code(s): E05.20 - Thyrotoxicosis with toxic multinodular goiter without thyrotoxic crisis or storm Category: Medical Plan: Patient has reported history of toxic multinodular goiter with FNA in past of right midpole and right lower pole nodule with benign cytology. She is clinically euthyroid but has a mildly suppressed TSH off methimazole The recent ultrasound showed changes in the size of the right midpole the left inferior nodule. An ultrasound recently perform shows left lobe extending substernally with large nodule. TRAB antibodies are negative suggestive the absence of Graves disease. Plan is to have the patient proceed with thyroidectomy by Dr. Irvin at [facility]. She is going to call a follow-up after she has the thyroidectomy. I will recheck TSH, free T4 and free T3 and if the TSH is significantly suppressed and/or free T4 free T3 is elevated, could consider adding a low-dose anti-thyroid medication prior to surgery Orders: Orders Triiodothyronine T3 Free Today E05.20 - Thyrotoxicosis with toxic multinodular goiter without thyrotoxic crisis or storm Free T4 (Free Thyroxine) Today E05.20 - Thyrotoxicosis with toxic multinodular goiter without thyrotoxic crisis or storm Thyroid Stimulating Hormone Today E05.20 - Thyrotoxicosis with toxic multinodular goiter without thyrotoxic crisis or storm Medications: New tirzepatide (Mounjaro) 2.5 mg (0.5 mL) subcut QWEEK 4 weeks 2 mL 0RF Refilled blood-glucose sensor (FreeStyle Parish 3 Sensor device) As directed change every 14 days 2 ea 5RF Coding Level of Care Code Est Pt Level 4 (82352) Diagnoses Uncontrolled type 2 diabetes mellitus with hyperglycemia E11.65 Glycemic state: with hyperglycemia Toxic multinodular goiter E05.20
[2023-07-15 14:37] LABS: Glucose, Whole Blood 170 mg/dL (60-115)
== END 2023-07-15 14:53 | disposition home or self-care (01) ==
PROVIDERS: PCP Internal Medicine; Visit Provider Internal Medicine Endocrinology, Diabetes & Metabolism
DX: E11.65 Type 2 diabetes mellitus with hyperglycemia (principal); E05.20 Thyrotoxicosis with toxic multinodular goiter without thyrotoxic crisis or storm
CPT/HCPCS: 99214

== ENCOUNTER → 2023-07-15 14:22 | Outpatient (BNVA) | payer MEDICARE, BC, SELFPAY | PROVIDERS: PCP Internal Medicine; Visit Provider Internal Medicine Endocrinology, Diabetes & Metabolism | DX: E05.20 Thyrotoxicosis with toxic multinodular goiter without thyrotoxic crisis or storm (principal); E11.65 Type 2 diabetes mellitus with hyperglycemia; Z79.4 Long term (current) use of insulin; Z79.85 Long-term (current) use of injectable non-insulin antidiabetic drugs | CPT/HCPCS: 82947; 99212 ==

== ENCOUNTER 2023-11-04 14:57 | Outpatient (AMB) | payer MEDICARE, BC, SELFPAY ==
--- NOTE | 2023-11-04 15:04 | A.OFFVIS_ITS ---
Vital Signs 11/04/23 15:07 Height 5 ft Weight 218 lb 4.122 oz BMI 42.6 BP 126/80 Blood Pressure Location Rt brachial Position Sitting Pulse 60 Pulse Source Pulse Oximeter Intake Visit Reasons: DM Intake Note: Patient presents today to follow up on D2MT and Toxic MNG. Last Diabetic Eye exam: About 2 years ago Last Podiatry Visit:01/2023 Most Recent HgA1c: 7.8%, 11/04/2023 Random Glucose: 145 mg/dL Composition Molder Required: No Accompanied by: Self / Same As Patient Allergies amoxicillin Allergy (Intermediate, Verified 07/15/23 14:31) hives, hand swelling, itch, feet swelling HPI Comments Details: 68 yo female for for toxic multinodular goiter and diabetes presenting for follow up DM diagnosis 2004. On glipizide 10mg twice daily, metformin 500mg twice daily, mounjaro 2.5mg daily. A1C 7.8%. Glucose readings in past month have been at goal Eye exam overdue On ARB, statin MNG She had fine-needle aspiration on 03/08/2020 of right mid pole nodule and the right lower pole nodule both nodules were benign follicular nodule [place] category 2. She had fine-needle aspiration of right mid pole on 10/21/2018 cytology was consistent with benign follicular nodule [place] category 2. She had FNA of right mid pole nodule size 2.5 x 1.7 x 1.6 on 09/26/16 consistent with benign follicular nodule She also has Toxic multinodular goiter, off MMI She was referred at last visit to Dr Irvin but says she needs oral surgery prior to undergoing this surgery ROS CONSTITUTIONAL: Denies weight loss, fever and chills. HEENT: Denies changes in vision and hearing. RESPIRATORY: Denies SOB and cough. CV: Denies palpitations and CP GI: Denies abdominal pain, nausea, vomiting and diarrhea. : Denies dysuria and urinary frequency. MSK: Denies new myalgia and joint pain. SKIN: Denies rash and pruritus. NEUROLOGICAL: Denies headache PSYCHIATRIC: Denies recent changes in mood. PHYSICAL EXAM: GENERAL: Alert and oriented x 3. NAD EYES: EOMI. Anicteric. HENT: Moist mucous membranes. No scleral icterus. No cervical lymphadenopathy. LUNGS: Clear to auscultation bilaterally. CARDIOVASCULAR: Regular rate and rhythm. No murmur. No JVD. ABDOMEN: Soft, non-tender +bs EXTREMITIES: No edema. Non-tender. SKIN: No rashes or lesions. Warm. NEUROLOGIC: No focal neurological deficits. CN II-XII grossly intact PSYCHIATRIC: Cooperative. Appropriate mood and affect [facility] Medical History (Updated 07/02/23 @ 14:29 by Anna Magana MD) Anxiety Hypersomnia Insomnia Mild recurrent major depression Left knee pain Right hip pain Left hip pain GERD (gastroesophageal reflux disease) Hypovitaminosis D Migraines Mixed hyperlipidemia Obese Depression with anxiety Essential hypertension Hyperthyroidism Diabetes mellitus Hirsutism Vitamin D deficiency Essential hypertension Dyslipidemia Diabetes type 2, uncontrolled Toxic multinodular goiter Surgical History Previous back surgery Status post biopsy of thyroid gland Hx of removal of neck cyst History of back surgery Family History Father Hypertension Substance use disorder Mother Type 2 diabetes mellitus Lung cancer Social History Household Members: None Housing: House Alcohol intake: never Patient Tobacco Use Status: Former Tobacco user Tobacco use type: Cigarette e-Cigarette/Vaping Use: Never Used Second Hand Smoke Exposure: No service: No Current occupational status: retired Cognitive needs: Yes Hearing needs: No Vision needs: No Physical Exam Vital Signs: Last Vital Signs Pulse 60 11/04/23 15:07 BP 126/80 11/04/23 15:07 BMI result Body Mass Index 42.6 Results AMB Hemoglobin A1c AMB Hemoglobin A1c 7.8 % Last Edit by LUPE Tolliver on 11/04/23 15:33 Results Reviewed Results Reviewed: Laboratory Last Values Glucose (Clinic) 145 mg/dL (60-115) H 11/04/23 15:12 Hgb A1c (Clinic) 7.8 % (4.0-6.0) H 11/04/23 15:32 Assessment & Plan Assessment & Plan (1) Diabetes mellitus: Code(s): E11.9 - Type 2 diabetes mellitus without complications Category: Medical Qualifiers: Diabetes mellitus complication status: without complication Diabetes mellitus buttermaker continuous churn insulin use: without half-way use Diabetes mellitus type: type 2 Qualified Code(s): E11.9 - Type 2 diabetes mellitus without complications Plan: With mild hyperglycemia, improved readings recently. Mounrahelro sent She is to schedule annual eye exam Aware of macro/microvascular complications of diabetes (2) Toxic multinodular goiter: Code(s): E05.20 - Thyrotoxicosis with toxic multinodular goiter without thyrotoxic crisis or storm Category: Medical Plan: Recommended she follow through with recommendation to have thyroidectomy. She will work towards getting this scheduled. She needs to make appointment for dentist and oral surgeon Orders: Orders AMB Hemoglobin A1c 11/04/23 E11.65 - Type 2 diabetes mellitus with hyperglycemia Medications: New ondansetron HCl 4 mg PO Q8H PRN 60 tabs 3RF nausea and vomiting trazodone 50 - 100 mg (1 - 2 x 50 mg) PO BEDTIME PRN 180 tabs 0RF sleep 90 days Changed From tirzepatide (Mounjaro) 2.5 mg (0.5 mL) subcut QWEEK 4 weeks 2 mL 0RF E05.20 - Thyrotoxicosis with toxic multinodular goiter without thyrotoxic crisis or storm, E11.9 - Type 2 diabetes mellitus without complications To Mounjaro (tirzepatide) 2.5 mg (0.5 mL) subcut QWEEK 6 mL 3RF 4 weeks NS E05.20 - Thyrotoxicosis with toxic multinodular goiter without thyrotoxic crisis or storm, E11.9 - Type 2 diabetes mellitus without complications Refilled glipizide 10 mg (2 x 5 mg) PO BID 360 tabs 4RF E11.65 - Type 2 diabetes mellitus with hyperglycemia metformin ER 500 mg PO BID 180 tabs 5RF E11.9 - Type 2 diabetes mellitus without complications Coding Level of Care Code Est Pt Level 4 (81623) Diagnoses Type 2 diabetes mellitus without complication, without long-term current use of insulin E11.9 Diabetes mellitus complication status: without complication Diabetes mellitus buttermaker continuous churn insulin use: without buttermaker continuous churn use Diabetes mellitus type: type 2 Toxic multinodular goiter E05.20
[2023-11-04 15:07] VITALS: BP 126/80; PULSE 60; BMI 42.6
[2023-11-04 15:16] LABS: Glucose, Whole Blood 145 mg/dL (60-115)
== END 2023-11-04 16:20 | disposition home or self-care (01) ==
PROVIDERS: PCP Internal Medicine; Visit Provider Internal Medicine
DX: E11.9 Type 2 diabetes mellitus without complications (principal); E05.20 Thyrotoxicosis with toxic multinodular goiter without thyrotoxic crisis or storm

== ENCOUNTER → 2023-11-04 14:57 | Outpatient (BNVA) | payer MEDICARE, BC, SELFPAY | PROVIDERS: PCP Internal Medicine; Visit Provider Internal Medicine | DX: E11.65 Type 2 diabetes mellitus with hyperglycemia (principal); E05.20 Thyrotoxicosis with toxic multinodular goiter without thyrotoxic crisis or storm | CPT/HCPCS: 82947; 83036; 99212 ==

== ENCOUNTER 2023-11-18 14:54 | Outpatient (AMB) | payer MEDICARE, BC, SELFPAY ==
--- NOTE | 2023-11-18 15:00 | A.OFFPC_ITS ---
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: No Accompanied by: Self / Same As Patient Allergies amoxicillin Allergy (Intermediate, Verified 11/18/23 15:32) hives, hand swelling, itch, feet swelling Medication List - Last Reconciled 11/18/23 by Anna Magana MD aspirin 81 mg PO DAILY 90 days atorvastatin 80 mg PO BEDTIME 90 days blood sugar diagnostic (OneTouch Verio test strips) DIRECTED blood-glucose sensor (FreeStyle [place] 3 Sensor device) As directed change every 14 days vpohsksomz-mfoukouezoemz-vhth 50-325-40 mg 1 tab PO BID PRN 30 days cholecalciferol (vitamin D3) TAKE 1 CAPSULE BY MOUTH EVERY DAY clonazepam 0.5 mg PO DAILY 90 days duloxetine 120 mg (2 x 60 mg) PO DAILY 90 days fenofibrate nanocrystallized 145 mg PO DAILY 90 days glipizide 10 mg (2 x 5 mg) PO BID lancets (OneTouch Delica Plus Lancet) Check blood glucose 4 times per day, before and after breakfast and dinner. losartan TAKE 1 TABLET BY MOUTH EVERY DAY metformin ER 500 mg PO BID Mounjaro (tirzepatide) 2.5 mg (0.5 mL) subcut QWEEK 4 weeks NS omeprazole 20 mg PO BID 90 days ondansetron HCl 4 mg PO Q8H PRN propranolol ER 80 mg PO DAILY sumatriptan succinate 25 mg PO Q2-4H PRN 30 days trazodone 50 - 100 mg (1 - 2 x 50 mg) PO BEDTIME PRN 90 days Tobacco use date assessed: 05/13/23 Fall risk assessment: No Falls in past year Last assessed Fall Risk: 11/18/23 Dental Screening Dental Screen Date: 05/13/23 HPI HPI Comments History of Present Illness Details This is a 68-year-old female with diabetes mellitus type 2, hypertension, mild major depression and anxiety that complains of left ear pain that started few days ago. A1c elevated and she follows with endocrinology. She has not started Mounjaro yet. Blood pressure stable. Depression with anxiety well controlled with medications and follow by Psychiatry. She has otitis media in her left ear and I will start her on antibiotics. [facility] Medical History (Updated 11/18/23 @ 20:21 by Anna Magana MD) Anxiety Hypersomnia Insomnia Mild recurrent major depression Left knee pain Right hip pain Left hip pain GERD (gastroesophageal reflux disease) Hypovitaminosis D Migraines Mixed hyperlipidemia Obese Depression with anxiety Essential hypertension Hyperthyroidism Diabetes mellitus Hirsutism Vitamin D deficiency Essential hypertension Dyslipidemia Diabetes type 2, uncontrolled Toxic multinodular goiter Surgical History Previous back surgery Status post biopsy of thyroid gland Hx of removal of neck cyst History of back surgery Family History Father Hypertension Substance use disorder Mother Type 2 diabetes mellitus Lung cancer Social History Household Members: None Housing: House Alcohol intake: never Patient Tobacco Use Status: Former Tobacco user Tobacco use type: Cigarette e-Cigarette/Vaping Use: Never Used Second Hand Smoke Exposure: No service: No Current occupational status: retired Cognitive needs: Yes Hearing needs: No Vision needs: No Questionnaire Thrive Questionnaire Date Thrive assessed: 07/02/23 Are you currently unemployed and looking for a job?: No AUDIT C Alcohol Use Questionnaire (AUDIT-C) 3. How often do you have six or more drinks on one occasion?: Never Total Score: 0 HAMMAD-7 AMB Questionnaire HAMMAD-7 Date HAMMAD - 7 assessed: 07/02/23 Source: Developed by Drs. Jun Moncada, Antonina Emery, Balta Lopez and colleagues, with an educational darío from [employer]. Review of Systems Const All systems reviewed & are unremarkable except as noted in HPI and below Eyes Reports no additional complaints, Denies change in vision and Denies other visual disturbances Card Denies chest pain at rest, Denies chest pain with activity, Denies edema, Denies irregular heart rhythm, Denies claudication, Denies dyspnea, Denies dyspnea on exertion, Denies orthopnea, Denies paroxysmal nocturnal dyspnea and Denies slow heart rate Resp Denies cough, Denies dyspnea and Denies dyspnea on exertion GI Denies abdominal pain, Denies change in bowel habits, Denies excessive flatus, Denies nausea and Denies vomiting Physical exam (Primary Care) Vital Signs: Last Vital Signs BP 132/80 11/18/23 15:01 BMI result Body Mass Index 32.7 BMI Assessment/Plan discussion: High BMI High, discussed plan: lifestyle, weight reduction, dietary and physical activity Tobacco/Smoking Status: Tobacco use Status Tobacco use date assessed 05/13/23 11/18/23 15:04 Patient Tobacco Use Status Former Tobacco user 11/18/23 15:04 Tobacco use type Cigarette 11/18/23 15:04 e-Cigarette/Vaping Use Never Used 11/18/23 15:04 Thrive Assessment: Date of Thrive Assessment Date Thrive assessed 07/02/23 11/18/23 15:04 HENMT Ears: TM abnormal erythematous Resp Effort & Inspection: normal respiratory effort Auscultation: clear to auscultation bilaterally Cardio Jugular venous distension: no JVD Rate: regular rate Rhythm: regular rhythm Heart sounds: S1 normal heart sound present and S2 normal heart sound present Extrem General: Yes full ROM Office Procedures Flu Questionnaire Does the patient have a severe egg allergy?: No Does the patient have severe life threatening allergies?: No Does the patient have a fever or illness today?: No Has the patient ever had Guillain-Fortson Syndrome?: No Has the patient ever had any past reaction to a flu shot?: No Immunizations Fluarix Triv [id number] (PF) 45 mcg (15 mcg x 3)/0.5 mL IM syringe Performing Provider: Anna Magana MD Performing Location: [facility] Administered by: LUPE Santana on 11/18/23 15:51 Dose Route Admin Location Dispensed Lot Number Expiration Date NDC [employer] 0.5 mL IM Left Deltoid 0.5 mL [id number] 08/08/24 [id number] [employer] VIS Given Date VIS Provided VIS Publication Date 11/18/23 Single Vaccine 20 Eligibility Eligibility Date Funding Source Not [facility] Eligible 11/18/23 Private pneumoc 20-patti conj-dip cr(PF) 0.5 mL IM syringe Performing Provider: Anna Magana MD Performing Location: [facility] Administered by: LUPE Santana on 11/18/23 15:51 Dose Route Admin Location Dispensed Lot Number Expiration Date NDC [employer] 0.5 mL IM Right Deltoid 0.5 mL [id number] 09/09/24 [employer] VIS Given Date VIS Provided VIS Publication Date 11/18/23 Single Vaccine 21 Eligibility Eligibility Date Funding Source Not [facility] Eligible 11/18/23 Private Coding Level of Care Code Est Pt Level 4 (67413) Complex EM visit Add On G2211 Diagnoses Type 2 diabetes mellitus without complication, without long-term current use of insulin E11.9 Diabetes mellitus type: type 2 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: without termite control technician use Diabetes mellitus complication status: without complication Essential hypertension I10 Mild recurrent major depression F33.0 Anxiety F41.9 Otitis media H66.90 Time Spent (min) 22 Assessment & Plan Assessment & Plan (1) Diabetes mellitus: Code(s): E11.9 - Type 2 diabetes mellitus without complications Category: Medical Qualifiers: Diabetes mellitus type: type 2 Diabetes mellitus detention insulin use: without detention use Diabetes mellitus complication status: without complication Qualified Code(s): E11.9 - Type 2 diabetes mellitus without complications Plan: Continue metformin and glipizide. Start Mounjaro. A1c goal is equal or less than 7%. Follow-up with endocrinology. (2) Essential hypertension: Code(s): I10 - Essential (primary) hypertension Category: Medical Plan: Continue losartan. Blood pressure goal is equal or less than 130/80. (3) Mild recurrent major depression: Code(s): F33.0 - Major depressive disorder, recurrent, mild Category: Medical Plan: Continue Cymbalta. Follow-up with psychiatry. (4) Anxiety: Code(s): F41.9 - Anxiety disorder, unspecified Category: Medical Plan: Continue benzodiazepines as needed. Follow-up with psychiatry (5) Otitis media: Code(s): H66.90 - Otitis media, unspecified, unspecified ear Category: Medical Plan: Start Z-Mg. Orders: Orders Influenza [id number] Immunization Today Z23 - Encounter for immunization Lipid Panel Today E78.5 - Hyperlipidemia, unspecified Thyroid Stimulating Hormone Today E05.90 - Thyrotoxicosis, unspecified without thyrotoxic crisis or storm Free T4 (Free Thyroxine) Today E05.90 - Thyrotoxicosis, unspecified without thyrotoxic crisis or storm Pneumococcal 20 Immunization Today Z23 - Encounter for immunization Microalbumin, Random (w Creat) Today R80.9 - Proteinuria, unspecified Comprehensive [place]. Panel Fast Today I63.9 - Cerebral infarction, unspecified Medications: New fluocinolone acetonide oil 0.01% (DermOtic Oil) 5 drps otic (ears) BID 20 mL 0RF 7 days azithromycin Take 2 tabs the first day, then 1 tab for the next 4 days 250 mg PO DAILY 6 tabs 0RF 5 days
[2023-11-18 15:01] VITALS: BP 132/80; BMI 32.7
== END 2023-11-18 15:51 | disposition home or self-care (01) ==
PROVIDERS: PCP Internal Medicine; Visit Provider Internal Medicine
DX: E11.9 Type 2 diabetes mellitus without complications (principal); I10 Essential (primary) hypertension; F33.0 Major depressive disorder, recurrent, mild; F41.9 Anxiety disorder, unspecified; H66.90 Otitis media, unspecified, unspecified ear; Z23 Encounter for immunization

== ENCOUNTER → 2023-11-18 14:54 | Outpatient (BNVA) | payer MEDICARE, BC, SELFPAY | PROVIDERS: PCP Internal Medicine; Visit Provider Internal Medicine | DX: Z23 Encounter for immunization (principal); E11.9 Type 2 diabetes mellitus without complications; I10 Essential (primary) hypertension; F33.0 Major depressive disorder, recurrent, mild; F41.9 Anxiety disorder, unspecified; H66.90 Otitis media, unspecified, unspecified ear | CPT/HCPCS: 90471; 90472; 90656; 90677; 99212 ==

== ENCOUNTER → 2023-11-19 14:11 | Outpatient (REF) | payer MEDICARE, BC, SELFPAY | LOC: HO.SL 14:11 | PROVIDERS: PCP Internal Medicine; Visit Provider Psychiatry & Neurology Neurology | DX: G47.10 Hypersomnia, unspecified (principal); G47.00 Insomnia, unspecified; R06.83 Snoring | CPT/HCPCS: 95806 ==

== ENCOUNTER → 2023-11-24 14:21 | Outpatient (BNV) | payer MEDICARE, BC, SELFPAY | PROVIDERS: PCP Internal Medicine; Visit Provider Psychiatry & Neurology Neurology | DX: G47.10 Hypersomnia, unspecified (principal); R06.83 Snoring | CPT/HCPCS: 95806 ==

== ENCOUNTER 2024-01-21 11:27 | Outpatient (AMB) | payer MEDICARE, BC, SELFPAY ==
[2024-01-21 11:33] VITALS: BP 120/80; PULSE 79; BMI 33.2
--- NOTE | 2024-01-21 11:33 | A.OFFVIS_ITS ---
Vital Signs 01/21/24 11:33 Height 5 ft 8 in Weight 218 lb 4.122 oz BMI 33.2 BP 120/80 Blood Pressure Location Rt brachial Position Sitting Pulse 79 Pulse Source Pulse Oximeter Intake Visit Reasons: T2DM Intake Note: Patient presents today to follow up on D2MT and Toxic MNG. Last Diabetic Eye exam: About 2 years ago Last Podiatry Visit:01/2023 Most Recent HgA1c: DUE%, 01/21/2024 Random Glucose: 195 mg/dL Screen Handler Required: No Accompanied by: Self / Same As Patient Allergies amoxicillin Allergy (Intermediate, Verified 11/18/23 15:32) hives, hand swelling, itch, feet swelling HPI Comments Details: 68 yo female for for toxic multinodular goiter and diabetes presenting for follow up DM diagnosis 2004. Current medicatins: glipizide 10mg twice daily, metformin 500mg twice daily, mounjaro 2.5mg daily (has not started just got approved). A1C 7.7 from 7.8%. Eye exam overdue On ARB, statin MNG She had fine-needle aspiration on 03/08/2020 of right mid pole nodule and the right lower pole nodule both nodules were benign follicular nodule [place] category 2. She had fine-needle aspiration of right mid pole on 10/21/2018 cytology was consistent with benign follicular nodule [place] category 2. She had FNA of right mid pole nodule size 2.5 x 1.7 x 1.6 on 09/26/16 consistent with benign follicular nodule She also has Toxic multinodular goiter, off MMI She was referred at last visit to Dr Irvin but says she needs oral surgery prior to undergoing this surgery. She has not followed up. Realizes that her labs are overdue and plans to get this nato ROS CONSTITUTIONAL: Denies weight loss, fever and chills. HEENT: Denies changes in vision and hearing. RESPIRATORY: Denies SOB and cough. CV: Denies palpitations and CP GI: Denies abdominal pain, nausea, vomiting and diarrhea. : Denies dysuria and urinary frequency. MSK: Denies new myalgia and joint pain. SKIN: Denies rash and pruritus. NEUROLOGICAL: Denies headache PSYCHIATRIC: Denies recent changes in mood. PHYSICAL EXAM: GENERAL: Alert and oriented x 3. NAD EYES: EOMI. Anicteric. HENT: Moist mucous membranes. No scleral icterus. No cervical lymphadenopathy. LUNGS: Clear to auscultation bilaterally. CARDIOVASCULAR: Regular rate and rhythm. No murmur. No JVD. ABDOMEN: Soft, non-tender +bs EXTREMITIES: No edema. Non-tender. SKIN: No rashes or lesions. Warm. NEUROLOGIC: No focal neurological deficits. CN II-XII grossly intact PSYCHIATRIC: Cooperative. Appropriate mood and affect [facility] Medical History Anxiety Hypersomnia Insomnia Mild recurrent major depression Left knee pain Right hip pain Left hip pain GERD (gastroesophageal reflux disease) Hypovitaminosis D Migraines Mixed hyperlipidemia Obese Depression with anxiety Essential hypertension Hyperthyroidism Diabetes mellitus Hirsutism Vitamin D deficiency Essential hypertension Dyslipidemia Diabetes type 2, uncontrolled Toxic multinodular goiter Surgical History Previous back surgery Status post biopsy of thyroid gland Hx of removal of neck cyst History of back surgery Family History Father Hypertension Substance use disorder Mother Type 2 diabetes mellitus Lung cancer Social History Household Members: None Housing: House Alcohol intake: never Patient Tobacco Use Status: Former Tobacco user Tobacco use type: Cigarette e-Cigarette/Vaping Use: Never Used Second Hand Smoke Exposure: No service: No Current occupational status: retired Cognitive needs: Yes Hearing needs: No Vision needs: No Physical Exam Vital Signs: Last Vital Signs Pulse 79 01/21/24 11:33 BP 120/80 01/21/24 11:33 BMI result Body Mass Index 33.2 Results AMB Hemoglobin A1c AMB Hemoglobin A1c 7.7 % Last Edit by LUPE Tolliver on 01/21/24 11:53 Results Reviewed Results Reviewed: Laboratory Last Values Glucose (Clinic) 195 mg/dL (60-115) H 01/21/24 11:39 Hgb A1c (Clinic) 7.7 % (4.0-6.0) H 01/21/24 11:34 Assessment & Plan Assessment & Plan (1) Diabetes mellitus: Code(s): E11.9 - Type 2 diabetes mellitus without complications Category: Medical Qualifiers: Diabetes mellitus type: type 2 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: without care home use Diabetes mellitus complication status: without complication Qualified Code(s): E11.9 - Type 2 diabetes mellitus without complications Plan: Suboptimal control She notes that insurance will be approving the mounjaro so she will be starting this imminently Advised 6 week follow up to see progress on medications (2) Toxic multinodular goiter: Code(s): E05.20 - Thyrotoxicosis with toxic multinodular goiter without thyrotoxic crisis or storm Category: Medical Plan: Advised to do her labs and follow up with Dr rIvin for surgery Orders: Orders AMB Hemoglobin A1c Today E11.9 - Type 2 diabetes mellitus without complications Medications: Changed From blood sugar diagnostic (OneTouch Verio test strips) DIRECTED 100 strips 5RF E11.9 - Type 2 diabetes mellitus without complications To OneTouch Verio test strips (blood sugar diagnostic) once daily 100 ea 3RF NS E11.9 - Type 2 diabetes mellitus without complications From lancets (OneTouch Delica Plus Lancet) Check blood glucose 4 times per day, before and after breakfast and dinner. 200 ea 4RF E11.9 - Type 2 diabetes mellitus without complications To OneTouch Delica Plus Lancet (lancets) Check once daily 100 ea 3RF NS E11.9 - Type 2 diabetes mellitus without complications Refilled Mounjaro (tirzepatide) 2.5 mg (0.5 mL) subcut QWEEK 6 mL 3RF 4 weeks NS E05.20 - Thyrotoxicosis with toxic multinodular goiter without thyrotoxic crisis or storm, E11.9 - Type 2 diabetes mellitus without complications losartan TAKE 1 TABLET BY MOUTH EVERY DAY 90 tabs 1RF Coding Level of Care Code Est Pt Level 4 (31822) Diagnoses Type 2 diabetes mellitus without complication, without long-term current use of insulin E11.9 Diabetes mellitus type: type 2 Diabetes mellitus care home insulin use: without care home use Diabetes mellitus complication status: without complication Toxic multinodular goiter E05.20
[2024-01-21 11:43] LABS: Glucose, Whole Blood 195 mg/dL (60-115)
== END 2024-01-21 12:11 | disposition home or self-care (01) ==
PROVIDERS: PCP Internal Medicine; Visit Provider Internal Medicine
DX: E11.9 Type 2 diabetes mellitus without complications (principal); E05.20 Thyrotoxicosis with toxic multinodular goiter without thyrotoxic crisis or storm

== ENCOUNTER → 2024-01-21 11:27 | Outpatient (BNVA) | payer MEDICARE, BC, SELFPAY | PROVIDERS: PCP Internal Medicine; Visit Provider Internal Medicine | DX: E11.9 Type 2 diabetes mellitus without complications (principal); E05.20 Thyrotoxicosis with toxic multinodular goiter without thyrotoxic crisis or storm | CPT/HCPCS: 36415; 80053; 80061; 82043; 82570; 82947; 83036; 84439; 84443; 99212 ==

== ENCOUNTER 2024-01-21 12:41 | Outpatient (REF) | payer MEDICARE, BC, SELFPAY ==
[2024-01-21 17:09] LABS: Alanine Aminotransferase 22 U/L (0-31); Albumin Level 4.3 g/dL (3.5-5.0); Alkaline Phosphatase 53 U/L (39-117); Anion Gap 12 (12-20); Aspartate Amino Transferase 24 U/L (5-31); Bilirubin Total 0.3 mg/dL (0.0-1.0); Blood Urea Nitrogen 16 mg/dL (9-16); Calcium 10.1 mg/dL (8.4-10.2); Carbon Dioxide 24 mmol/L (22-29); Chloride 109 mmol/L (96-108); Cholesterol 172 mg/dL (<200); Estimated Glomerular Filt Rate > 60; Glucose Fasting 169 mg/dL (60-99); HDL Cholesterol 40 mg/dL (>40); LDL Cholesterol Calculated 91 mg/dL (<100); Potassium 4.4 mmol/L (3.3-5.1); Sodium 141 mmol/L (135-145); Total Protein 7.3 g/dL (6.5-8.0); Triglycerides 206 mg/dL (<150)
[2024-01-21 17:25] LABS: Free T4 (Free Thyroxine) 1.04 ng/dL (0.71-1.85); Thyroid Stimulating Hormone 0.16 uIU/mL (0.32-4.0)
[2024-01-21 17:36] LABS: Creatinine Urine 116.87 mg/dL; Microalbum/Creatinine Ratio Ur 19.6 ug/mg cr (<30)
== END 2024-01-21 12:42 | disposition home or self-care (01) ==
LOC: HO.HMGCLDS 12:41
PROVIDERS: PCP Internal Medicine; Visit Provider Internal Medicine
DX: Z13.89 Encounter for screening for other disorder (principal)
CPT/HCPCS: 36415; 80053; 80061; 82043; 82570; 84439; 84443

== ENCOUNTER 2024-04-28 12:23 | Outpatient (AMB) | payer MEDICARE, BC, SELFPAY ==
--- NOTE | 2024-04-28 12:29 | A.OFFPC_ITS ---
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 Accompanied by: Self / Same As Patient Allergies amoxicillin Allergy (Intermediate, Verified 04/28/24 12:35) hives, hand swelling, itch, feet swelling Medication List - Last Reconciled 04/28/24 by Anna Magana MD aspirin 81 mg PO DAILY 90 days atorvastatin 80 mg PO BEDTIME 90 days blood-glucose sensor (FreeStyle [place] 3 Sensor device) As directed change every 14 days dytciuknew-nnzbzjyqiqiik-fcne 50-325-40 mg 1 tab PO BID PRN 30 days cholecalciferol (vitamin D3) TAKE 1 CAPSULE BY MOUTH EVERY DAY clonazepam 0.5 mg PO DAILY 90 days duloxetine 120 mg (2 x 60 mg) PO DAILY 90 days fenofibrate nanocrystallized 145 mg PO DAILY 90 days fluocinolone acetonide oil 0.01% (DermOtic Oil) 5 drps otic (ears) BID 7 days glipizide 10 mg (2 x 5 mg) PO BID losartan TAKE 1 TABLET BY MOUTH EVERY DAY metformin ER 500 mg PO BID Mounjaro (tirzepatide) 2.5 mg (0.5 mL) subcut QWEEK 4 weeks NS omeprazole 20 mg PO BID 90 days ondansetron HCl 4 mg PO Q8H PRN OneTouch Delica Plus Lancet (lancets) Check once daily NS OneTouch Verio test strips (blood sugar diagnostic) once daily NS propranolol ER 80 mg PO DAILY sumatriptan succinate 25 mg PO Q2-4H PRN 30 days trazodone 50 - 100 mg (1 - 2 x 50 mg) PO BEDTIME PRN Tobacco use date assessed: 04/28/24 Fall risk assessment: No Falls in past year Last assessed Fall Risk: 04/28/24 Dental Screening Dental Screen Date: 04/28/24 Did you have a dental visit in the last 12 months?: No Did you have a dental problem in the last 6 months where you did not have access to dental care?: No Was dental information given to patient?: Patient has dentist HPI HPI Comments History of Present Illness Details The patient is a 68-year-old female presenting with concerns related to her elevated blood pressure and general health. She reports episodic vomiting that occurs every two months, linked to consumption of large meals particularly those high in fat content. These episodes of vomiting are not associated with abdominal pain. She has a history of hypertension, for which re-evaluation is planned, and a history of stroke, managed with low-dose aspirin to prevent recurrence. Her medical history includes obesity, contributing to dietary issues and intermittent vomiting episodes. She has expressed hesitancy in starting Mounjaro for weight management due to concerns about potential side effects including vomiting. Her known medical history also includes depression treated with duloxetine and clonazepam for anxiety management. Trazodone has been prescribed to address insomnia. The patient mentions hip and leg pain, affecting her daily life, warranting an X-ray referral. The recent discussions also noted allergies to amoxicillin, and she reported taking numerous medications, including atorvastatin for lipid management with occasional non-adherence to the prescribed regimen. REPLACED BY [facility] Medical History (Updated 04/28/24 @ 13:45 by Anna Magana MD) Anxiety Hypersomnia Insomnia Mild recurrent major depression Left knee pain Right hip pain Left hip pain GERD (gastroesophageal reflux disease) Hypovitaminosis D Migraines Mixed hyperlipidemia Obese Depression with anxiety Essential hypertension Hyperthyroidism Diabetes mellitus Hirsutism Vitamin D deficiency Essential hypertension Dyslipidemia Diabetes type 2, uncontrolled Toxic multinodular goiter Surgical History Previous back surgery Status post biopsy of thyroid gland Hx of removal of neck cyst History of back surgery Family History Father Hypertension Substance use disorder Mother Type 2 diabetes mellitus Lung cancer Social History Household Members: None Housing: House Alcohol intake: never Patient Tobacco Use Status: Former Tobacco user Tobacco use type: Cigarette e-Cigarette/Vaping Use: Never Used Second Hand Smoke Exposure: No service: No Current occupational status: retired Cognitive needs: Yes Hearing needs: No Vision needs: No Questionnaire PHQ-9 Over the last 2 weeks, how often have you been bothered by any of the following problems? 1. Little interest or pleasure in doing things: several days 2. Feeling down, depressed, or hopeless: several days 3. Trouble falling or staying asleep, or sleeping too much: several days 4. Feeling tired or having little energy: several days 5. Poor appetite or overeating: not at all 6. Feeling bad about yourself - or that you are a failure or have let yourself or your family down: not at all 7. Trouble concentrating on things, such as reading the newspaper or watching television: not at all 8. Moving or speaking so slowly that other people could have noticed. Or the opposite - being so fidgety or restless that you have been moving around a lot more than usual: not at all 9. Thoughts that you would be better off or of hurting yourself in some way: not at all Total score: 4 Depression Screening Interpretation: Positive Depression Screening Follow-up: Existing condition, In treatment and Follow-up Visit Requested Depression Screening Done: Yes 14023 - PHQ-9 Billing: Yes Source: Developed by Drs. Jun Moncada, Antonina Emery, Balta Lopze and colleagues, with an educational darío from [employer]. Thrive Questionnaire Date Thrive assessed: 04/28/24 I am a: Patient What is your living situation today?: I have a steady place to live Within the past 12 months, did the food you bought not last and you didn't have the money to get more?: Never true Within the past 12 months, did you worry whether your food would run out before you got money to buy more?: Never true Do you have trouble paying for medicines?: No Do you have trouble getting transportation to medical appointments?: No Do you have trouble paying your heating and electricity bill?: No Do you have trouble taking care of your child, family member or friend?: No Do you have trouble with day-to-day activities such as bathing, preparing meals, shopping, managing finances, etc.?: No Are you currently unemployed and looking for a job?: No Are you interested in more education?: No Please select the resources that you would like help with: None Currently or been in a relationship where the following occur: No concerns reported THRIVE Score: 0 AUDIT C Alcohol Use Questionnaire (AUDIT-C) 1. How often do you have a drink containing alcohol?: Never Total Score: 0 Score Reviewed/Action Taken: No HAMMAD-7 AMB Questionnaire HAMMAD-7 Date HAMMAD - 7 assessed: 04/28/24 Feeling nervous, anxious, or on edge: 1 = Several days Not being able to stop or control worryin = Not at all Worrying too much about different things: 1 = Several days Trouble relaxin = Not at all Being so restless that it is hard to sit still: 0 = Not at all Becoming easily annoyed or irritable: 0 = Not at all Feeling afraid as if something awful might happen: 0 = Not at all Total HAMMAD-7 score (0-4 normal; 5-9 mild; 10-14 moderate; 15-21 severe): 2 Source: Developed by Drs. Jun Moncada, Antonina Emery, Balta Lopez and colleagues, with an educational darío from [employer]. HAMMAD-7 Assessment Billing HAMMAD-7 Assessment Tool: HAMMAD-7 Assessment 66030 Review of Systems Const All systems reviewed & are unremarkable except as noted in HPI and below Card Denies chest pain at rest, Denies chest pain with activity, Denies edema, Denies irregular heart rhythm, Denies claudication, Denies dyspnea, Denies dyspnea on exertion, Denies orthopnea, Denies paroxysmal nocturnal dyspnea and Denies slow heart rate Resp Denies cough, Denies dyspnea and Denies dyspnea on exertion GI Reports abdominal pain, Denies change in bowel habits, Denies excessive flatus, Denies nausea and Denies vomiting Musc Denies atrophy, Denies deformity and Denies limited range of motion Physical exam (Primary Care) Vital Signs: Last Vital Signs BP 152/90 H 04/28/24 12:38 BMI result Body Mass Index 33.1 BMI Assessment/Plan discussion: High BMI High, discussed plan: lifestyle, weight reduction, dietary and physical activity Tobacco/Smoking Status: Tobacco use Status Tobacco use date assessed 04/28/24 04/28/24 12:38 Patient Tobacco Use Status Former Tobacco user 04/28/24 12:30 Tobacco use type Cigarette 04/28/24 12:30 e-Cigarette/Vaping Use Never Used 04/28/24 12:30 PHQ-9: PHQ-9 Score PHQ-9: Total score 4 04/28/24 13:04 Depression Screening Interpretation: Positive Depression Screening Follow-up: Existing condition, In treatment and Follow-up Visit Requested Thrive Assessment: Date of Thrive Assessment Date Thrive assessed 04/28/24 04/28/24 12:34 Currently or been in a relationship where the following occur: No concerns reported Resp Effort & Inspection: normal respiratory effort Auscultation: clear to auscultation bilaterally Cardio Jugular venous distension: no JVD Rate: regular rate Rhythm: regular rhythm Heart sounds: S1 normal heart sound present and S2 normal heart sound present GI Inspection: Yes normal to inspection Palpation (GI): Soft to palpation and nontender Auscultation: normal bowel sounds Extrem General: Yes full ROM Coding Level of Care Code Est Pt Level 4 (73832) Complex EM visit Add On G2211 Diagnoses Recurrent vomiting R11.10 Abdominal discomfort in right flank R10.9 Right hip pain M25.551 Left hip pain M25.552 Thyroid disease E07.9 CVA (cerebral vascular accident) I63.9 Type 2 diabetes mellitus without complication, without long-term current use of insulin E11.9 Diabetes mellitus type: type 2 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 insulin use: without prison use Diabetes mellitus complication status: without complication Essential hypertension I10 Mild recurrent major depression F33.0 Additional Codes HAMMAD-7 Assessment Billing - HAMMAD-7 Assessment Tool: HAMMAD-7 Assessment 95887 ([id number]) PHQ-9 - 27130 - PHQ-9 Billing: Yes ([id number]) Time Spent (min) 22 Assessment & Plan Assessment & Plan (1) Recurrent vomiting: Code(s): R11.10 - Vomiting, unspecified Category: Medical (2) Abdominal discomfort in right flank: Code(s): R10.9 - Unspecified abdominal pain Category: Medical (3) Right hip pain: Code(s): M25.551 - Pain in right hip Category: Medical (4) Left hip pain: Code(s): M25.552 - Pain in left hip Category: Medical (5) Thyroid disease: Code(s): E07.9 - Disorder of thyroid, unspecified Category: Medical (6) CVA (cerebral vascular accident): Comment: MRI 12/2021 There is a tiny acute white matter infarct involving the right external capsule. 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 April 2023- MRI brain with/without contrast from [facility] showed subacute left temporal and left temporal-occipital junction lacunar infarcts as well as subtle petechial hemorrhage/hemorrhagic transformation related to the left temporal- occipital infarct as well as chronic changes previously noted. Code(s): I63.9 - Cerebral infarction, unspecified Category: Medical (7) Diabetes mellitus: Code(s): E11.9 - Type 2 diabetes mellitus without complications Category: Medical Qualifiers: Diabetes mellitus type: type 2 Diabetes mellitus prison insulin use: without prison use Diabetes mellitus complication status: without complication Qualified Code(s): E11.9 - Type 2 diabetes mellitus without complications (8) Essential hypertension: Code(s): I10 - Essential (primary) hypertension Category: Medical (9) Mild recurrent major depression: Code(s): F33.0 - Major depressive disorder, recurrent, mild Category: Medical Plan A follow-up blood pressure check is planned in three weeks. An abdominal ultrasound will be conducted to evaluate the gallbladder as a possible cause for episodic vomiting. The initiation of Mounjaro is deferred, pending further evaluation. A hip X-ray is ordered to investigate the cause of her leg pain. Continued trazodone usage is recommended to manage insomnia, with attention to dosing for clarity and grogginess avoidance. Current medications for stroke prevention and mental health are maintained with adherence emphasis. Observational management of allergies remains, with advice to avoid amoxicillin. Patient was informed and verbally consented to the use of an ambient scribe for clinic note documentation during this visit. During the consultation, I reviewed the patient's current medical complaints, including hypertension, episodic vomiting, and hip pain. We discussed monitoring her blood pressure and ensuring compliance with cardiovascular therapy. The necessity of an abdominal ultrasound was explained, and its role in differentiating causes for her vomiting was discussed. I advised delaying Mounjaro until her digestive symptoms are fully evaluated. We addressed her insomnia management, emphasizing proper trazodone dose adherence to minimize side effects. For her hip pain, an X-ray was recommended to address mechanical versus systemic causes. The patient was guided on managing current medications, ensuring they align with her ongoing health needs. Orders: Orders Thyroid Stimulating Hormone Today E07.9 - Disorder of thyroid, unspecified XR hip LT 1V Today M25.552 - Pain in left hip XR hip RT 1V Today M25.551 - Pain in right hip US abdomen complete Today R10.9 - Unspecified abdominal pain Free T4 (Free Thyroxine) Today E07.9 - Disorder of thyroid, unspecified Referrals Gastroenterology Referral R11.10 - Vomiting, unspecified Medications: New pantoprazole 40 mg PO DAILY 90 days 90 tabs 1RF Discontinued Mounjaro (tirzepatide) Discontinued Reason: Patient Completed Course 2.5 mg (0.5 mL) subcut QWEEK 4 weeks 6 mL 3RF NS E05.20 - Thyrotoxicosis with toxic multinodular goiter without thyrotoxic crisis or storm, E11.9 - Type 2 diabetes mellitus without complications omeprazole Discontinued Reason: Patient Completed Course 20 mg PO BID 90 days 180 caps 3RF Patient Instructions: - Schedule a follow-up for a blood pressure check in three weeks. - Attend an abdominal ultrasound as ordered to evaluate digestive issues. - Await hip X-ray scheduling and results to determine further intervention. - Continue taking trazodone as instructed, adjust dosing for side effect management. - Avoid high-fat meals to potentially reduce vomiting episodes. - Maintain current medication regimen, and adhere strictly to avoid complications. - Inform of any allergic reactions immediately, especially related to amoxicillin. - Rest adequately and maintain a consistent sleep daily routine.
[2024-04-28 12:38] VITALS: BP 152/90; BMI 33.1
== END 2024-04-28 13:02 | disposition home or self-care (01) ==
LOC: HO.HMCH 12:23
PROVIDERS: PCP Internal Medicine; Visit Provider Internal Medicine
DX: E11.9 Type 2 diabetes mellitus without complications (principal); F33.0 Major depressive disorder, recurrent, mild; I25.2 Old myocardial infarction; R11.10 Vomiting, unspecified; R10.9 Unspecified abdominal pain; M25.551 Pain in right hip; M25.552 Pain in left hip; E07.9 Disorder of thyroid, unspecified; I10 Essential (primary) hypertension

== ENCOUNTER → 2024-04-28 12:23 | Outpatient (BNVA) | payer MEDICARE, BC, SELFPAY | PROVIDERS: PCP Internal Medicine; Visit Provider Internal Medicine | DX: R11.10 Vomiting, unspecified (principal); R10.9 Unspecified abdominal pain; M25.551 Pain in right hip; M25.552 Pain in left hip; E07.9 Disorder of thyroid, unspecified; E11.9 Type 2 diabetes mellitus without complications; F33.0 Major depressive disorder, recurrent, mild; I10 Essential (primary) hypertension | CPT/HCPCS: 96127; 99212 ==

== ENCOUNTER 2024-05-11 11:44 | Outpatient (REF) | payer MEDICARE, BC, SELFPAY ==
--- OUTSIDE RECORDS SUMMARY | 2024-05-11 14:18 | XMS_ITS | Patient Health Record ---
[facility] Address [address] [place] [address] Care Team Providers Care Remedial Masseur Name Role Phone Trish MARTE, Anna Primary Care Provider Unavail able Yaima Tabor Unavailable [phone] Allergies Allergen (clinical drug ingredient) Drug/Non Drug Allergy documented on EMR Reaction Allergy Type Onset Date Status amoxicillin Amoxicillin Unknown Drug Allergy Act rogelio Penicillin Unknown Drug Allergy Active Results Component Value Reference Range Notes HEMOGLOBIN A1C (GLYCOHEMOGLO BIN) Reviewed date:01/21/2024 02:39:05 PM Interpretation: Performing Lab: Notes/Report: TOTAL HEMOGLOBIN (HGBA1C) 7.9 Reason For Referral No Information Medications Medication SIG (Take, Route, Frequency, Duration) Notes Start Date End Date Status Vitamin D Active glipiZIDE Active NIFEdipine ER Not-Ta matt Diabetic Insoles Act rogelio AmLactin Not-Taking Extra-Depth Diabetic Shoes with 3 Pair Custom heat-molded multi-density innersoles shoes wear pedally daily for 1 year 12/25/2010 Active Ciclopirox Olamine 0.77% external Apply to effected areas twice a day for 30 days 06/13/2013 Not-Taking Propranolol HCl Acti ve Clindamycin HCl 300 MG 1 capsule Orally every 8 hrs for 5 day(s) PRN 09/05/2015 Not-Taking Ibuprofen PRN Active Neurontin Not-Taking Fenofibrate Active Extra Depth Orthopedic Shoes (1 Pair) with Customized Heat Molded Multidensity Innersoles (3 Pair) as directed Dx: NIDDM/Polyneuropathy (E11.42), Hammertoe Foot Deformity (M20.41,M20.42), Preulcerative Skin Lesion(s) (L85.1 08/31/2017 Active zzzExtra Depth Orthopedic Shoes (1 Pair) with Customized Heat Molded Multidensity Innersoles (3 Pair) . . . Dx: NIDDM/Polyneuropathy (E11.42), Hammertoe Foot Deformity (M20.41,M20.42), Preulcerative Skin Lesion(s) (L85.1) for . 04/12/2015 Not-Taki ng Extra Depth Orthopedic Shoes (1 Pair) with Customized Heat Molded Multidensity Innersoles (3 Pair) as directed Dx: NIDDM/Polyneuropathy (E11.42), Hammertoe Foot Deformity (M20.41,M20.42), 01/21/2024 Active metFORMIN HCl Active Glucophage Not-Takin g Immunizations Vaccine Route Administration Date Status Comme nts Influenza Unknown 09/19/2015 Pending Influenza Unknown 02/15/2019 Administered Influenza Unknown 10/10/2021 Administered Influenza Unknown 11/09/2022 Administered COVID-19 Moderna Vaccine Unknown 06/06/2020 Administered First Dose: 04/11 03/01 Social History Tobacco Use: Social History Observation Description Date Details (start date - stop date) Former Smoker NA - NA Alcohol Screen Question Answer Notes Did you have a drink containing alcohol in the p ast year? No Points 0 Interpretation Negative Tobacco use other than smoking: Question Answer Notes Are you an other tobacco user? No Tobacco Control (Standard) Question Answer Notes Tobacco use: Former smoker Additional Findings: Tobacco non-user Ex-cigaret te smoker Problems Problem Type SNOMED Code ICD Code Onset Dates Problem Status W/U Status Risk Notes Problem Acquired hammer toe of right foot (4265343770594960 ) Other hammer toe(s) (acquired), right foot (M20.41) Active confirmed Problem Acquired hammer toe of left foot (7046033770847897 ) Other hammer toe(s) (acquired), left foot (M20.42) Active confirmed Problem Polyneuropathy due to type 2 diabetes mellitus (272620521) Type 2 diabetes mellitus with diabetic polyneuropathy (E11.42) Active confirmed Problem Polyneuropathy due to type 2 diabetes mellitus (754704056) Type 2 diabetes mellitus with diabetic polyneuropathy (E11.42) Active confirmed Problem Localized, primary osteoarthritis of the ankle and/or foot (967434154) Arthritis of joint of lesser toe, left (M19.072) Active confirmed Problem Localized, primary osteoarthritis of the ankle and/or foot (211161067) Arthritis of joint of lesser toe, right (M19.071) Active confirmed Vital Signs Blood pressure diastolic 80 mm Hg 01/21/2024 Height 5ft8in in 01/21/2024 Blood pressure systolic 180 mm Hg 01/21/2024 Weight 218 lbs 01/21/2024 BMI 33.14 kg/m2 01/21/2024 Procedures Procedure Date Ordered Date Performed Result Body Sit e 83511-AEGS SKIN LESIONS, OVER 4 07/23/2023 N/A Y7698-ABAWEVRA DYSTROPHIC NAILS ANY # 07/23/2023 N/A 96110-SPZJ SKIN LESIONS, OVER 4 01/21/2024 N/A I6791-WAAPVITF DYSTROPHIC NAILS ANY # 01/21/2024 N/A Encounters Encounter Location Date Provider Diagnosis [facility] [address] [address] 07/23/2023 Yaima Black Type 2 diabetes mellitus with diabetic polyneuropathy E11.[address] [facility] [address] 01/21/2024 Yaima Black Type 2 diabetes mellitus with diabetic polyneuropathy E11.42 ; Other hammer toe(s) (acquired), right foot M20.41 ; Pain in right toe(s) M79.674 ; Pain in left toe(s) M79.675 and Other hammer toe(s) (acquired), left foot M20.42 Assessments Encounter Date Diagnosis (ICD Code) Assessment Notes Treatment Notes Treatment Clinical Notes Section Notes 07/23/2023 Type 2 diabetes mellitus with diabetic polyneuropathy (ICD-10 - E11.42) 01/21/2024 Other hammer toe(s) (acquired), right foot (ICD-10 - M20.41) Patient Educated with: DIABETIC FOOT CARE INSTRUCTIONS. pdf (DIABETIC FOOT CARE INSTRUCTIONS. pdf) 01/21/2024 Type 2 diabetes mellitus with diabetic polyneuropathy (ICD-10 - E11.42) 01/21/2024 Pain in right toe(s) (ICD-10 - M79.674) 01/21/2024 Pain in left toe(s) (ICD-10 - M79.675) 01/21/2024 Other hammer toe(s) (acquired), left foot (ICD-10 - M20.42) Plan Of Treatment Pending Test Test Name Order Date X ray : Foot, left 2V 12/25/2010 X ray : Foot, right 2V 12/25/2010 99413-PIOBUQC NAIL, 6 OR MORE 05/12/2016 66581-ESRULSW NAIL, 6 OR MORE 09/19/2015 53799-DTFPVXZ NAIL, 6 OR MORE 09/29/2016 74505-JBADDHI NAIL, 6 OR MORE 12/25/2016 60746-XJCLASP NAIL, 6 OR MORE 12/25/2010 42449-YLQYCLR NAIL, 6 OR MORE 06/07/2012 70747-RWODVBK NAIL, 6 OR MORE 12/06/2012 40590-MJMVQMS NAIL, 6 OR MORE 06/13/2013 77316-URLYSSD NAIL, 6 OR MORE 04/12/2015 45949-UWUYHOH NAIL, 6 OR MORE 07/11/2015 18157-ETMUHSI NAIL, 6 OR MORE 08/31/2017 36005-HJDHCPC NAIL, 6 OR MORE 07/12/2018 86966-MQSZFGC NAIL, 6 OR MORE 09/29/2019 19113-NUQXGIR NAIL, 6 OR MORE 04/05/2020 11116-APEDLIF NAIL, 6 OR MORE 10/25/2020 55092-RGHZUES NAIL, 6 OR MORE 08/22/2021 84967-Muheagjh Plate 06/19/2022 90729-Iyjnsogw Plate 01/15/2023 38950-Qmuhwqvj Plate 08/22/2021 04902-Rhbpwawl Plate 10/25/2020 34627-Oqrkijpa Plate 07/12/2018 48971-Iroljgdb Plate 08/31/2017 01395-Xciqqbsc Plate 07/11/2015 26038-Vqsgiqco Plate 06/13/2013 39719-Fkudxxlz Plate 12/25/2016 22539-Zxuchxvz Plate 09/19/2015 42407-Irekvmnv Plate 05/12/2016 60411-Akkysdlb Plate 04/12/2015 94710-Vlfcogod Plate Each Additional 43304-Tknoeatv Plate Each Additional 06/2013 90842-Phlmzawf Plate Each Additional 96204-Hrwirsxn Plate Each Additional 04/2018 97052-Djqdbxaq Plate Each Additional 17614-Lvxczoos Plate Each Additional 12/2022 71910- Debride <25 sq cm 06/13/2013 01571 I&D ABSCESS- SIMPLE,SINGLE 017 16244 I&D ABSCESS- SIMPLE,SINGLE 016 91224-SMIB SKIN LESIONS, OVER 4 06/20/19 23 43854-NIJC SKIN LESIONS, OVER 4 01/16/20 23 95527-WFVC SKIN LESIONS, OVER 4 07/23/19 24 09484-YXVK SKIN LESIONS, OVER 4 01/21/20 24 92755-TFAP SKIN LESIONS, OVER 4 08/23/19 22 81909-IOXP SKIN LESIONS, OVER 4 10/26/19 21 49217-BVLD SKIN LESIONS, OVER 4 04/05/19 21 94477-MVDK SKIN LESIONS, OVER 4 09/29/19 20 23361-FDIJ SKIN LESIONS, 2 TO 4 07/13/19 19 75495-BLMY SKIN LESIONS, 2 TO 4 12/07/19 13 26819-WXKC SKIN LESIONS, 2 TO 4 06/14/19 14 28193-CCOO SKIN LESIONS, 2 TO 4 07/11/19 16 46459-QHYD SKIN LESIONS, 2 TO 4 04/12/19 16 10980-BHDA SKIN LESIONS, 2 TO 4 05/13/19 17 50827-HXEX SKIN LESIONS, 2 TO 4 09/30/19 17 03369-PMTV SKIN LESIONS, 2 TO 4 12/26/19 17 16883-WAKO SKIN LESIONS, 2 TO 4 09/19/19 16 48038-XBRE SKIN LESIONS, 2 TO 4 09/01/19 18 V9889-ZXMLITCX DYSTROPHIC NAILS ANY # O5122-HULAYHAZ DYSTROPHIC NAILS ANY # M0513-KFBXTLKW DYSTROPHIC NAILS ANY # Y9992-ECCGLXUK DYSTROPHIC NAILS ANY # Next Appt Details Provider Name:Yaima Tabor , 05/26/2024 02:00:00 PM, [address] [place] [address], [phone], Provider Name:Yaima Tabor , 06/06/2024 03:15:00 PM, [address] [facility], [place], [address], Insurance Providers Payer Name Payer Address Payer Phone Subscriber Number Group Number Insured Name Patient Relationship to Insured Coverage Start Date Coverage End Date Medicare [employer] [address] [place] [phone] [id number] Debra Shea Self - patient is the insured 2 [facility] [address] [place] [address] [id number] Debra Shea Self - patient is the insured Medical (General) History Medical History History ICD Code hernia headaches/migraines diabetic depression chicken pox Cholesterol back, hip, knee pain Arthritis Anxiety disorder Stroke Surgical History Surgery Date(Month/Year) back surgery Hospitalization History Reason Date(Month/Year) [facility]- stroke 04/2023
--- OUTSIDE RECORDS SUMMARY | 2024-05-11 14:18 | XMS_ITS ---
Author Organization 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 Role Phone Trish MARTE, Anna Primary Care Provider Unavail able Black, Yaima Unavailable [phone] Allergies Allergen (clinical drug ingredient) Drug/Non Drug Allergy documented on EMR Reaction Allergy Type Onset Date Status amoxicillin Amoxicillin Unknown Drug Allergy Act rogelio Penicillin Unknown Drug Allergy Active REASON FOR VISIT At Risk Footcare, Toe Irritation Medications Medication SIG (Take, Route, Frequency, Duration) Notes Start Date End Date Status AmLactin Not-Taking Clindamycin HCl 300 MG 1 capsule Orally every 8 hrs for 5 day(s) PRN 09/05/2015 Not-Taking Neurontin Not-Taking zzzExtra Depth Orthopedic Shoes (1 Pair) with Customized Heat Molded Multidensity Innersoles (3 Pair) . . . Dx: NIDDM/Polyneuropathy (E11.42), Hammertoe Foot Deformity (M20.41,M20.42), Preulcerative Skin Lesion(s) (L85.1) for . 04/12/2015 Not-Taki ng Extra Depth Orthopedic Shoes (1 Pair) with Customized Heat Molded Multidensity Innersoles (3 Pair) as directed Dx: NIDDM/Polyneuropathy (E11.42), Hammertoe Foot Deformity (M20.41,M20.42), 01/21/2024 Active Vitamin D Active glipiZIDE Active NIFEdipine ER Not-Ta matt Ciclopirox Olamine 0.77% external Apply to effected areas twice a day for 30 days 06/13/2013 Not-Taking metFORMIN HCl Active Propranolol HCl Acti ve Ibuprofen PRN Active Fenofibrate Active Extra Depth Orthopedic Shoes (1 Pair) with Customized Heat Molded Multidensity Innersoles (3 Pair) as directed Dx: NIDDM/Polyneuropathy (E11.42), Hammertoe Foot Deformity (M20.41,M20.42), Preulcerative Skin Lesion(s) (L85.1 08/31/2017 Active Glucophage Not-Takin g Diabetic Insoles Act rogelio Extra-Depth Diabetic Shoes with 3 Pair Custom heat-molded multi-density innersoles shoes wear pedally daily for 1 year 12/25/2010 Active Social History Tobacco Use: Social History Observation Description Date Details (start date - stop date) Former Smoker NA - NA Tobacco use other than smoking: Question Answer Notes Are you an other tobacco user? No Tobacco Control (Standard) Question Answer Notes Tobacco use: Former smoker Additional Findings: Tobacco non-user Ex-cigaret te smoker Problems Problem Type SNOMED Code ICD Code Onset Dates Problem Status W/U Status Risk Notes Problem Acquired hammer toe of right foot (5074216468731047) Other hammer toe(s) (acquired), right foot (M20.41) Active confirmed Problem Localized, primary osteoarthritis of the ankle and/or foot (542742127) Arthritis of joint of lesser toe, right (M19.071) Active confirmed Problem Acquired hammer toe of left foot (4359709839852825) Other hammer toe(s) (acquired), left foot (M20.42) Active confirmed Problem Localized, primary osteoarthritis of the ankle and/or foot (062322290) Arthritis of joint of lesser toe, left (M19.072) Active confirmed Vital Signs Height 5ft8in in 01/21/2024 Weight 218 lbs 01/21/2024 BMI 33.14 kg/m2 01/21/2024 Blood pressure systolic 180 mm Hg 01/21/20 24 Blood pressure diastolic 80 mm Hg 024 Procedures Procedure Date Ordered Date Performed Result Body Sit e 23308-EKAK SKIN LESIONS, OVER 4 01/21/2024 N/A [id number] DYSTROPHIC NAILS ANY # 01/21/2024 N/A Encounters Encounter Location Date Provider Diagnosis [facility] [address] [place] [address] 01/21/2024 Yaima Tabor Type 2 diabetes mellitus with diabetic polyneuropathy E11.42 ; Other hammer toe(s) (acquired), right foot M20.41 ; Pain in right toe(s) M79.674 ; Pain in left toe(s) M79.675 and Other hammer toe(s) (acquired), left foot M20.42 Assessments Encounter Date Diagnosis (ICD Code) Assessment Notes Treatment Notes Treatment Clinical Notes Section Notes 01/21/2024 Type 2 diabetes mellitus with diabetic polyneuropathy (ICD-10 - E11.42) 01/21/2024 Other hammer toe(s) (acquired), right foot (ICD-10 - M20.41) Patient Educated with: DIABETIC FOOT CARE INSTRUCTIONS. pdf (DIABETIC FOOT CARE INSTRUCTIONS. pdf) 01/21/2024 Pain in right toe(s) (ICD-10 - M79.674) 01/21/2024 Pain in left toe(s) (ICD-10 - M79.675) 01/21/2024 Other hammer toe(s) (acquired), left foot (ICD-10 - M20.42) Plan Of Treatment Medication Medication Name Sig Start Date Stop Date Notes Extra Depth Orthopedic Shoes (1 Pair) with Customized Heat Molded Multidensity Innersoles (3 Pair) as directed Dx: NIDDM/Polyneuropathy (E11.42), Hammertoe Foot Deformity (M20.41,M20.42), 01/21/2024 Treatment Notes Assessment Notes Other hammer toe(s) (acquired), right fo ot Patient Educated with: DIABETIC FOOT CARE INSTRUCTIONS.pdf (DIABETIC FOOT CARE INSTRUCTIONS.pdf) Pending Test Test Name Order Date 16371-AIBR SKIN LESIONS, OVER 4 01/21/20 24 [id number] DYSTROPHIC NAILS ANY # Next Appt Details Follow Up: prn, Reason: Provider Name:Yaima A Leander , 05/26/2024 02:00:00 PM, [address] [place] [address], [phone], Provider Name:Yaima A Leander , 06/06/2024 03:15:00 PM, [address] [place] [address], [phone], Procedure Notes * Category Sub-Category Detail Notes Keratoma Treatment Parring or Cutting o f Benign Hyperkeratotic Lesion(s) (-57) More than 4 Lesions - Due to the at risk nature of the patients medical condition as documented in the exam findings, performance of this keratoderma treatment is medically necessary as its management by an unskilled/untrained nonprofessional would put this patients foot and overall health at risk. Therefore, the benign hyperkeratotic lesions, ( 8 ) in total, locations as stated and described in the exam ( , SUB MTH (s), 2, 3, 4, B/L ,Plantar Heel(s), B/L ), were pared, and/or cut utilizing a sterile 15 blade, tissue nippers, and/or power dremel instrumentation by the physician of record - 38955 Nail Reduction Nail Reduction (-27) Trimming o f all dystrophic nails - Due to the at risk nature of the patients medical condition as documented in the exam findings, performance of this nail treatment is medically necessary as its management by an unskilled/untrained nonprofessional would put this patients foot and overall health at risk. Therefore, the dystrophic nails, in locations as stated and described in the exam ( 1-5 Right foot , 1,3-5 Left foot ), were debrided by the phisician of record to reduce/remove overall nail length and girth, by manual and electrical means with use of a nail nipper and/or dremel, to more viable healthy nail plate or bed tissue - G0127 Progress Notes * Debra HUFF EDOB: 1955 (68 yo F)Acc No.[id number]:01/21/2024 Progress Note Patient:?Naseem HUFFstephie Alonso Provider:?Yaima Tabor DPM :1955???Age:68 Y???Sex:Female D ate:01/21/2024 Address:[address] [place] [id number] Pcp:Anna Chambers MD Subjective: * Chief Complaints: * ???At Risk FootcareToe Irrit ation * HPI: ???At Risk footcare:?Pt States Last PCP Visit:?Date?10/11/2023 ???Toe pain:?Location:??B/L feet.?Duration:?several years.?Course:?worse.?Aggravated by:??shoes, any pressure.?Treatments:?rest/alter normal daily activity, change in shoes?.? * ROS:?General/Constitutional:?Nausea?denies.?Vomiting?denies.?Hunger Thirst?denies.?Loss appetite?denies.?Chills?denies.?Fatigue?denies.?Fever?denies.?Night Sweats?denies.?Unexplained weight loss?denies.?Unexplained weight gain?denies.?HEENTM:?Dentures?denies.?Dizziness?denies.?Glasses/contacts?admits.?Retinopathy?de nies.?Blurred/double vision?denies.?TMJ?denies.?Discharge/drainage?denies.?Implants?denies.?Sore throat?denies.?Dental implants?denies.?Hard of hearing ?denies.?Difficulty chewing/swallowing/speaking?denies.?Nose bleeds?denies.?Sore mouth?denies.?Respiratory:?On Oxygen?denies.?Pneumonia/pleurisy?denies.?Bronchitis?denies.?Emphysema?denies.?C oughing?denies.?Cough blood?denies.?Shortness of breath?denies.?Wheezing?denies.?Cardiovascular:?Pacemaker?denies.?MVP?denies.?WPW?denies.?CHF?denies.?Heart attack?denies.?Septal defect?denies.?Rapid beat?denies.?Chest pain ?denies.?Atrial Fib.?denies.?Murmur/Palpitations?denies.?Gastrointestinal:?Hemorrhoids?denies.?Stomach/Abdominal pain?denies.?Dark blood stool?denies.?Irritable bowel ?denies.?Constipation?denies.?Diarrhea?denies.?Hematology:?Swelling?denies.?Clots?denies.?Varicose Veins?denies.?Bruising?denies.?Bleeding problem?denies.?Genitourinary:?Blood urine?denies.?Frequent/Painfu/urination/bladder control?denies.?Kidney stones?denies.?Infection (UTI)?denies.?Nephropathy?denies.?sex trans dis (STD)?denies.?Prostate?denies.?Musculoskeletal:?Hammertoes?denies.?Bunions?denies.?Back Pain?denies.?Muscle Cramps/ Resting?denies.?Muscle cramps / walking?denies.?Generalized aches and pains?denies.?Weakness?denies.?Integ.:?Torres?denies.?Scars?denies.?Corns/calluses?denies.?Ingrown nails?admits.?Painful nails?admits.?Open Sores?denies.?Rashes?denies.?Neurologic:?Difficulty sleeping?denies.?Brain disorder?denies.?Numbness?denies.?Balance trouble?denies.?Confusion?denies.?Fainting/blackouts?denies.?Tingling?denies.?Tr emors?denies.? * Medical History:? * Surgical History:?back surge ry * Hospitalization/Major Diagno stic Procedure:?[facility]- stroke 04/2023 * Family History:?Mother: dece ased, cancer, diabetes, kidney/liver disease.?Father: .? * Social History:?Tobacco Use:?Tobacco use other than smoking?Are you an other tobacco user??No ?Tobacco Control (Standard)?Tobacco use:?Former smoker ?Additional Findings: Tobacco non-user?Ex-cigarette smoker * Medications:?TakingExtra-Dep th Diabetic Shoes with 3 Pair Custom heat-molded multi-density innersoles shoes molded inserts wear pedally daily Diabetic Insoles Ibuprofen , Notes to Pharmacist: PRNPropranolol HCl Extra Depth Orthopedic Shoes (1 Pair) with Customized Heat Molded Multidensity Innersoles (3 Pair) as directed Dx: NIDDM/Polyneuropathy (E11.42), Hammertoe Foot Deformity (M20.41,M20.42), Preulcerative Skin Lesion(s) (L85.1 Fenofibrate metFORMIN HCl glipiZIDE Vitamin D Taking Extra-Depth Diabetic Shoes with 3 Pair Custom heat-molded multi-density innersoles shoes molded inserts wear pedally daily Taking Diabetic Insoles Taking Ibuprofen , Notes to Pharmacist: PRNTaking Propranolol HCl Taking Extra Depth Orthopedic Shoes (1 Pair) with Customized Heat Molded Multidensity Innersoles (3 Pair) as directed Dx: NIDDM/Polyneuropathy (E11.42), Hammertoe Foot Deformity (M20.41,M20.42), Preulcerative Skin Lesion(s) (L85.1 Taking Fenofibrate Taking metFORMIN HCl Taking glipiZIDE Taking Vitamin D Not-Taking/PRNGlucophage NIFEdipine ER Ciclopirox Olamine 0.77% Cream external Apply to effected areas twice a day AmLactin Neurontin Clindamycin HCl 300 MG Capsule 1 capsule Orally every 8 hrs , Notes to Pharmacist: PRNzzzExtra Depth Orthopedic Shoes (1 Pair) with Customized Heat Molded Multidensity Innersoles (3 Pair) . . . . Dx: NIDDM/Polyneuropathy (E11.42), Hammertoe Foot Deformity (M20.41,M20.42), Preulcerative Skin Lesion(s) (L85.1) Medication List reviewed and reconciled with the patientNot-Taking/PRN Glucophage Not-Taking/PRN NIFEdipine ER Not-Taking/PRN Ciclopirox Olamine 0.77% Cream external Apply to effected areas twice a day Not-Taking/PRN AmLactin Not-Taking/PRN Neurontin Not-Taking/PRN Clindamycin HCl 300 MG Capsule 1 capsule Orally every 8 hrs , Notes to Pharmacist: PRNNot-Taking/PRN zzzExtra Depth Orthopedic Shoes (1 Pair) with Customized Heat Molded Multidensity Innersoles (3 Pair) . . . . Dx: NIDDM/Polyneuropathy (E11.42), Hammertoe Foot Deformity (M20.41,M20.42), Preulcerative Skin Lesion(s) (L85.1) Medication List reviewed and reconciled with the patient * Allergies:?Amoxicillin: Efra rgyPenicillinyes[Allergies Verified] Objective: * Vitals:?Ht: 5ft8in, Wt:218, BMI:33.14, Shoe size: 10.5EEE, BP:180/80mm Hg, BS: 189, Ht-cm: 172.72 cm, Wt-k.88 kg. * ???Past Orders: ???Lab:HEMOGLOBIN A1C (GLYCO HEMOGLOBIN) (Order Date - 10/11/2023) (Collection Date & Time - 10/18/2023 02:38 PM) ? Value Reference Range ?TOTAL HEMOGLOBIN (HGBA1C) 7.9 * Examination: ???Ophthalmology Referral: ?DIABETES EYE EXAM?Procedure Performed:?No ?Eye Exam not performed:?No reason specified ?Diabetic Retinopathy Screening:?No ?Findings of Diabetic Eye Exam:?no retinopathy?General Examination: ?GENERAL APPEARANCE:?Reveals a pleasant, alert, well nourished, well- developed, well hydrated individual, who demonstrates proper attention to hygiene/body habitus, and is in no acute distress, Pt serves as own historian for office visit today.?ORIENTED:?person, place, and time.?FOOT EXAM:?Lower Extremity Neurological Exam performed:?Yes ?Footwear Evaluation?Footwear Evaluation performed:?Yes?Neurological: ?SENSORY:? Neurological exam demonstrates, reduced light touch sensation, reduced vibration sensation, reduced sharp/dull pin prick discrimination , B/L, 5.07 monofilament test performed at plantar aspects of 5 varied sites per foot shows sensation, reduced , B/L,Pt relates,numbness,hyperesthesia,paresthesia,pins and needles sensation.?TINEL'S COMPRESSION:?Negative tarsal tunnel, richar pedis, and medial calcaneal nerves.?Nails: ?NAILS are:?Elongated, overgrown, dystrophic , , 1-5 Right foot , 1,3-5 Left foot.?Dermatologic: ?SKIN FINDINGS:?Skin exam reveals keratotic lesion(s) located a, , SUB MTH (s), 2, 3, 4, B/L ,Plantar Heel(s), B/L .?Orthopedic: ?DIGITAL DEFORMITIES:?Digital contracture, PIPJ, 2-5 B/L, incompl-reducible to push-up test, no over, nor underlapping,?there is?evidence of shoe producing skin irritation.?FOOTWEAR:??worn, non-supportive, shoe gear properties exacerbate patient's foot/toe deformity.? Assessment: * Assessment: 1.?Other hammer toe(s) (acqu ired), right foot - M20.41 (Primary)???2.?Type 2 diabetes mellitus with diabetic polyneuropathy - E11.42???3.?Pain in right toe(s) - M79.674???4.?Pain in left toe(s) - M79.675???5.?Other hammer toe(s) (acquired), left foot - M20.42??? Plan: * Treatment: 2.?Type 2 diabetes mellitus with diabetic polyneuropathy?Procedure: 38797-TEZQ SKIN LESIONS, OVER 4 ?Procedure: W9682-[id number] DYSTROPHIC NAILS ANY # * Procedures:?Keratoma Treatment:?Parring or Cutting of Benign Hyperkeratotic Lesion(s)?(-57) More than 4 Lesions - Due to the at risk nature of the patients medical condition as documented in the exam findings, performance of this keratoderma treatment is medically necessary as its management by an unskilled/untrained nonprofessional would put this patients foot and overall health at risk. Therefore, the benign hyperkeratotic lesions, ( 8 ) in total, locations as stated and described in the exam (?,?SUB MTH (s),?2,?3,?4,?B/L?,Plantar Heel(s),?B/L?), were pared, and/or cut utilizing a sterile 15 blade, tissue nippers, and/or power dremel instrumentation by the physician of record - 82494.?Nail Reduction:?Nail Reduction?(-27) Trimming of all dystrophic nails - Due to the at risk nature of the patients medical condition as documented in the exam findings, performance of this nail treatment is medically necessary as its management by an unskilled/untrained nonprofessional would put this patients foot and overall health at risk. Therefore, the dystrophic nails, in locations as stated and described in the exam ( 1-5 Right foot , 1,3-5 Left foot ), were debrided by the phisician of record to reduce/remove overall nail length and girth, by manual and electrical means with use of a nail nipper and/or dremel, to more viable healthy nail plate or bed tissue - G0127.? * Procedure Codes:?91171 TRIM SKIN LESIONS, OVER 4, Modifiers: XS G0127 TRIMMING DYSTROPHIC NAILS ANY #, Modifiers: XS * Preventive Medicine:? ??Counseling:?Discussion:?-14: Office or other outpatient visit for the evaluation and management of an established patient, which required a medically appropriate history and/or examination and MODERATE level of DECISION MAKING for: 1 OR MORE CHRONIC PROBLEM(S) THATS WORSENING, 2 STABLE CHRONIC PROBLEMS, A NEWLY DIAGNOSED PROBLEM WITH UNCERTAIN PROGNOSIS, AN ACUTE COMPLICATED INJURY WITH MULTIPLE TREATMENT OPTIONS, OR AN ACUTE PROBLEM WITH ACCOMPANYING SYSTEMIC SYMPTOMS, THAT POSE(S) A MODERATE RISK OF MORBIDITY. THIS CONDITION MAY ALSO INCLUDE RX DRUG MANAGEMENT, OR A DECISON FOR MINOR SURGERY. The visit on the day of the encounter encompassed interpreting the data and educating the patient as to the nature of their condition, treatment options available according to their individual PMH, meds, allergies, and overall health/living conditions, as well as any potential risks or complications that may occur from a failure to adhere to, and participate in, the recommended course of therapy. The discussion included a complete verbal, and/or written explanation of the examination results, any x-rays taken, the proposed diagnosis, and outline of the treatment plan. A schedule for future care needs was also explained. The patient verbalized an understanding of the instructions at this time and agreed to be an active participant in their treatment. If the patient should think of any questions or concerns after the visit, I have encouraged the patient to call the office.?Digital Surgery:?We elected to try conservative treatment at the present time, due to the patients medical history,.?Digital Treatment:?HT- I explained to the patient the possible etiologies of Hammertoes, including genetics/foot type/shoegear/activity level/exercise routine and the risks/benefits of all the different treatment options for their pain including: No treatment at all, Rest, Ice, New/supportive/wider/deeper Shoegear, Digital Padding/Strapping/Taping/Bracing/Gel protective sleeves, Foot/Ankle AFO Bracing, Stretching exercises, Deep Tissue Massage, Arch support/shoe inserts with splay metatarsal padding, and Custom orthoses. I insisted that any digital devices be removed daily and not worn overnight for safety. The patient is to carefully examine the toes daily for any skin irritation while using any splinting or padding device. The advantages and disadvantages of each option were discussed and the patients questions re: shoegear, padding, custom vs prefabricated inserts, activity level, and consistency in home treatment regimens for optimal success were answered to their verbally confirmed satisfaction.?Shoe Gear Counseling:?SHOE Rx - The patient was counseled in great detail on their muscoloskeletal foot and toe deformities which coincided with the dermatological presentations visualized on exam. We discussed how their deformities put the integrity of their feet at risk for potential pedal complications which makes the accomidative diabetic shoes and cutomizable inserts medically necessary. We discussed the different shoe and insert treatment types and options, as well as the important advantages for adhering to regularly wearing these accomidative devices daily. The patient was made aware of the fact that a failure to abide by these recommedations may be deleterious to their foot health as they are able to prevent many pedal complications such as skin irritation, skin ulceration, infection, and even loss of toe/foot/leg/or life. Time was also spent with the patient dispensing and discussing proper diabetic footcare techniques including daily skin moisturization, daily foot inspection for any interruption in skin integrity including open lesions, or sign of infection such as redness/malodor/drainage/swelling. Also discussed and recommended were procedures regarding daily shoe inspection for the presence of internal foreign bodies as well as any visualized irregular shoe or insert wear. Patient questions re: shoes, inserts, and self foot inspections were answered to their satisfaction as the patient verbally confirmed a full understanding of the above information. A Rx for Extra Depth Orthopedic Shoes with 3 pair of custom heat-molded inserts was dispensed.? * Follow Up:?prn * Images: * Sign off status: Completed true * Provider:?Yaima Tabor DPM Date:?2023 Generated for Alexsandra childress/Leigha/Trini on:?05/11/2024 02:18 PM EDT History and Physical Notes * HPI (History of Present Illness) Category Sub-Category Detail Notes Category Not es Toe pain Location: B/L feet Duration: several years Course: worse Aggravated by: shoes, any pressure Treatments: rest/alter normal da angela activity, change in shoes At Risk footcare Pt States Last PCP Visit: Date: 4 Examination Category Sub-Category Detail Notes Category Not es Ingrown Nail INSPECTION: Neurological SENSORY: Neurological exa m demonstrates, reduced light touch sensation, reduced vibration sensation, reduced sharp/dull pin prick discrimination , B/L, 5.07 monofilament test performed at plantar aspects of 5 varied sites per foot shows sensation, reduced , B/L,Pt relates,numbness,hyperesthesia,paresthesia,p ins and needles sensation TINEL'S COMPRESSION: Negative tarsal faye fred, richar pedis, and medial calcaneal nerves Dermatologic SKIN FINDINGS: Skin exam reveal s keratotic lesion(s) located a, , SUB MTH (s), 2, 3, 4, B/L ,Plantar Heel(s), B/L Orthopedic FOOTWEAR EVALUATION: worn, non-s upportive, shoe gear properties exacerbate patient's foot/toe deformity DIGITAL DEFORMITIES: Digital contracture , PIPJ, 2-5 B/L, incompl-reducible to push-up test, no over, nor underlapping, there is evidence of shoe producing skin irritation General Examination GENERAL APPEARANCE: Reveals a pleasant, alert, well nourished, well-developed, well hydrated individual, who demonstrates proper attention to hygiene/body habitus, and is in no acute distress, Pt serves as own historian for office visit today FOOT EXAM: Lower Extremity Neurological Exa m performed:: Yes ORIENTED: person, place, and t odilia Footwear Evaluation Footwear Evaluation performe d:: Yes Ophthalmology Referral DIABETES EYE EXAM Procedure Perform ed:: No Eye Exam not performed:: No reason speci fied Diabetic Retinopathy Screening:: No Findings of Diabetic Eye Exam:: no retin opathy Nails NAILS are: Elongated, overg rown, dystrophic , , 1-5 Right foot , 1,3-5 Left foot
--- OUTSIDE RECORDS SUMMARY | 2024-05-11 14:18 | XMS_ITS ---
Author Organization [facility] Address [address] [place] [address] Care Team Providers Care Cash Management Specialist Name Role Phone Trish MARTE, Anna Primary Care Provider Unavail able Black, Yaima Unavailable [phone] Allergies Allergen (clinical drug ingredient) Drug/Non Drug Allergy documented on EMR Reaction Allergy Type Onset Date Status amoxicillin Amoxicillin Unknown Drug Allergy Act rogelio Penicillin Unknown Drug Allergy Active REASON FOR VISIT At Risk Footcare Medications Medication SIG (Take, Route, Frequency, Duration) Notes Start Date End Date Status Glucophage Active NIFEdipine ER Not-Ta matt Fenofibrate Active Extra Depth Orthopedic Shoes (1 Pair) with Customized Heat Molded Multidensity Innersoles (3 Pair) as directed Dx: NIDDM/Polyneuropathy (E11.42), Hammertoe Foot Deformity (M20.41,M20.42), Preulcerative Skin Lesion(s) (L85.1 08/31/2017 Active Propranolol HCl Acti ve Ibuprofen PRN Active Diabetic Insoles Act rogelio Extra-Depth Diabetic Shoes with 3 Pair Custom heat-molded multi-density innersoles shoes wear pedally daily for 1 year 12/25/2010 Active zzzExtra Depth Orthopedic Shoes (1 Pair) with Customized Heat Molded Multidensity Innersoles (3 Pair) . . . Dx: NIDDM/Polyneuropathy (E11.42), Hammertoe Foot Deformity (M20.41,M20.42), Preulcerative Skin Lesion(s) (L85.1) for . 04/12/2015 Not-Taki ng Clindamycin HCl 300 MG 1 capsule Orally every 8 hrs for 5 day(s) PRN 09/05/2015 Not-Taking Neurontin Not-Taking AmLactin Not-Taking Ciclopirox Olamine 0.77% external Apply to effected areas twice a day for 30 days 06/13/2013 Not-Taking Vitamin D Active glipiZIDE Active metFORMIN HCl Active Social History Tobacco Use: Social History Observation Description Date Details (start date - stop date) Former Smoker NA - NA Tobacco Use/Smoking Question Answer Notes Are you a: former smoker Additional Findings: Tobacco Non-User Current no n-smoker Alcohol Screen Question Answer Notes Did you have a drink containing alcohol in the p ast year? No Points 0 Interpretation Negative Tobacco use other than smoking: Question Answer Notes Are you an other tobacco user? No Vital Signs Height 5ft8in in 07/23/2023 Weight 220 lbs 07/23/2023 BMI 33.45 kg/m2 07/23/2023 Procedures Procedure Date Ordered Date Performed Result Body Sit e 03913-MBJK SKIN LESIONS, OVER 4 07/23/2023 N/A Z6035-MJHJVNUU DYSTROPHIC NAILS ANY # 07/23/2023 N/A Encounters Encounter Location Date Provider Diagnosis [facility] [address] [address] 07/23/2023 Yaima Tabor Type 2 diabetes mellitus with diabetic polyneuropathy E11.42 Assessments Encounter Date Diagnosis (ICD Code) Assessment Notes Treatment Notes Treatment Clinical Notes Section Notes 07/23/2023 Type 2 diabetes mellitus with diabetic polyneuropathy (ICD-10 - E11.42) Plan Of Treatment Pending Test Test Name Order Date 99338-NQWU SKIN LESIONS, OVER 4 07/23/19 24 P9769-VKOHGUVH DYSTROPHIC NAILS ANY # Next Appt Details Follow Up: prn, Reason: Provider Name:Yaima Beavers Leander , 05/26/2024 02:00:00 PM, [address] [place] [address], [phone], Provider Name:Yaima Tabro , 06/06/2024 03:15:00 PM, [address] [place] [address], [phone], Procedure Notes * Category Sub-Category Detail Notes Keratoma Treatment Parring or Cutting o f Benign Hyperkeratotic Lesion(s) 93237 ( >4 Lesions) - The Benign hyperkeratotic lesions, as described above were pared, and/or cut utilizing a sterile #15 blade, tissue nippers, and/or dremel Nail Reduction Nail Reduction Trimming of dyst rophic nails performed to reduce/remove overall nail length and girth, by manual and electrical means with use of a nail nipper and/or dremel, to more viable healthy nail plate or bed tissue 6-10 (G0127) Progress Notes * Debra HUFF EDOB: 1955 (68 yo F)Acc No.[id number]:07/23/2023 Progress Note Patient:?Mackenzie Huff kelsea E Provider:?Yaima Tabor DPM :1955???Age:68 Y???Sex:Female D ate:07/23/2023 Address:[address] [place], [place] [phone] Pcp:Anna Chambers MD Subjective: * Chief Complaints: * ???At Risk Footcare * HPI: ???At Risk footcare:?Pt States Last PCP Visit:?Date?05/26/2023 * Medical History:? * Surgical History:?back surge ry * Hospitalization/Major Diagno stic Procedure:?[facility]- stroke 04/2023 * Family History:?Mother: dece ased, cancer, diabetes, kidney/liver disease.?Father: .? * Social History:?Tobacco Use:?Tobacco Use/Smoking?Are you a:?former smoker ?Additional Findings: Tobacco Non-User?Current non-smoker ?Tobacco use other than smoking?Are you an other tobacco user??No ???Drugs/Alcohol:?Drugs?Have you used drugs other than those for medical reasons in the past 12 months??No ?Alcohol Screen?Did you have a drink containing alcohol in the past year??No ?Points?0 ?Interpretation?Negative ???Miscellaneous:?Caffeine: yes, soda, decaff. ?Children: yes, 3. ?no Exercise. ?Marital status: . ?Occupation: Retired. * Medications:?TakingExtra-Dep th Diabetic Shoes with 3 Pair Custom heat-molded multi-density innersoles shoes molded inserts wear pedally dailyDiabetic Insoles Ibuprofen , Notes: PRNPropranolol HCl Extra Depth Orthopedic Shoes (1 Pair) with Customized Heat Molded Multidensity Innersoles (3 Pair) as directed Dx: NIDDM/Polyneuropathy (E11.42), Hammertoe Foot Deformity (M20.41,M20.42), Preulcerative Skin Lesion(s) (L85.1Fenofibrate Glucophage metFORMIN HCl glipiZIDE Vitamin D Taking Extra-Depth Diabetic Shoes with 3 Pair Custom heat-molded multi-density innersoles shoes molded inserts wear pedally dailyTaking Diabetic Insoles Taking Ibuprofen , Notes: PRNTaking Propranolol HCl Taking Extra Depth Orthopedic Shoes (1 Pair) with Customized Heat Molded Multidensity Innersoles (3 Pair) as directed Dx: NIDDM/Polyneuropathy (E11.42), Hammertoe Foot Deformity (M20.41,M20.42), Preulcerative Skin Lesion(s) (L85.1Taking Fenofibrate Taking Glucophage Taking metFORMIN HCl Taking glipiZIDE Taking Vitamin D Not-Taking/PRNNIFEdipine ER Ciclopirox Olamine 0.77% Cream external Apply to effected areas twice a dayAmLactin Neurontin Clindamycin HCl 300 MG Capsule 1 capsule Orally every 8 hrs, Notes: PRNzzzExtra Depth Orthopedic Shoes (1 Pair) with Customized Heat Molded Multidensity Innersoles (3 Pair) . . . . Dx: NIDDM/Polyneuropathy (E11.42), Hammertoe Foot Deformity (M20.41,M20.42), Preulcerative Skin Lesion(s) (L85.1)Medication List reviewed and reconciled with the patientNot-Taking/PRN NIFEdipine ER Not-Taking/PRN Ciclopirox Olamine 0.77% Cream external Apply to effected areas twice a dayNot-Taking/PRN AmLactin Not-Taking/PRN Neurontin Not-Taking/PRN Clindamycin HCl 300 MG Capsule 1 capsule Orally every 8 hrs, Notes: PRNNot-Taking/PRN zzzExtra Depth Orthopedic Shoes (1 Pair) with Customized Heat Molded Multidensity Innersoles (3 Pair) . . . . Dx: NIDDM/Polyneuropathy (E11.42), Hammertoe Foot Deformity (M20.41,M20.42), Preulcerative Skin Lesion(s) (L85.1)Medication List reviewed and reconciled with the patient * Allergies:?Amoxicillin: Efra rgyPenicillinyes[Allergies Verified] Objective: * Vitals:?Ht: 5ft8in, Wt:220, BMI:33.45, Shoe size: 10.5EEE, BS: not taken, Ht-cm: 172.72 cm, Wt-k.79 kg. * ???Past Orders: ???Lab:HEMOGLOBIN A1C (GLYCO HEMOGLOBIN) (Order Date - 04/10/2023) (Collection Date - 04/10/2023) ? Value Reference Range ?HEMOGLOBIN A1C (HH) 7.7 * Examination: ???Ophthalmology Referral: ?DIABETES EYE EXAM?Diabetic Retinopathy Screening:?No ?Findings of Diabetic Eye Exam:?no retinopathy?Neurological: ?SENSORY:? Neurological exam demonstrates, reduced light touch sensation, reduced vibration sensation, reduced sharp/dull pin prick discrimination , B/L, 5.07 monofilament test performed at plantar aspects of 5 varied sites per foot shows sensation, reduced , B/L.?Nails: ?NAILS are:?Elongated, overgrown, dystrophic , , 1-5 Right foot , 1,3-5 Left foot.?Dermatologic: ?SKIN FINDINGS:??Skin exam reveals keratotic lesion(s) located a, , SUB MTH (s), 2, 3, 4, B/L , Heel(s), B/L .? Assessment: * Assessment: 1.?Type 2 diabetes mellitus with diabetic polyneuropathy - E11.42? Plan: * Treatment: * Procedures:?Keratoma Treatment:?Parring or Cutting of Benign Hyperkeratotic Lesion(s)?82143 ( >4 Lesions) - The Benign hyperkeratotic lesions, as described above were pared, and/or cut utilizing a sterile #15 blade, tissue nippers, and/or dremel.?Nail Reduction:?Nail Reduction?Trimming of dystrophic nails performed to reduce/remove overall nail length and girth, by manual and electrical means with use of a nail nipper and/or dremel, to more viable healthy nail plate or bed tissue 6-10 (G0127).? * Procedure Codes:?37223 TRIM SKIN LESIONS, OVER 4, Modifiers: XS G0127 TRIMMING DYSTROPHIC NAILS ANY #, Modifiers: XS * Follow Up:?prn * Images: * Sign off status: Completed true * Provider:?aYima Tabor DPM Date:?2023 Generated for Alexsandra childress/Leigha/eTteresesmkarsten on:?05/11/2024 02:18 PM EDT History and Physical Notes * HPI (History of Present Illness) Category Sub-Category Detail Notes Category Not es At Risk footcare Pt States Last PCP Visit: Date: 4 Examination Category Sub-Category Detail Notes Category Not es Ingrown Nail INSPECTION: Neurological SENSORY: Neurological exa m demonstrates, reduced light touch sensation, reduced vibration sensation, reduced sharp/dull pin prick discrimination , B/L, 5.07 monofilament test performed at plantar aspects of 5 varied sites per foot shows sensation, reduced , B/L Dermatologic SKIN FINDINGS: Skin exam reveal s keratotic lesion(s) located a, , SUB MTH (s), 2, 3, 4, B/L , Heel(s), B/L Ophthalmology Referral DIABETES EYE EXAM Diabeti c Retinopathy Screening:: No Findings of Diabetic Eye Exam:: no retin opathy Nails NAILS are: Elongated, overg rown, dystrophic , , 1-5 Right foot , 1,3-5 Left foot
--- OUTSIDE RECORDS SUMMARY | 2024-05-11 14:19 | XMS_ITS ---
Author [facility] Address [address] [facility] [place] [address] Care Team Providers Care Performance Tester Name Role Phone Trish MARTE, Anna Primary Care Provider Unavail able Black, Yaima Unavailable [phone] Allergies Allergen (clinical drug ingredient) Drug/Non Drug Allergy documented on EMR Reaction Allergy Type Onset Date Status amoxicillin Amoxicillin Unknown Drug Allergy Act rogelio Penicillin Unknown Drug Allergy Active REASON FOR VISIT Ingrown nail(s), At Risk Footcare Medications Medication SIG (Take, Route, Frequency, Duration) Notes Start Date End Date Status Ciclopirox Olamine 0.77% external Apply to effected areas twice a day for 30 days 06/13/2013 Not-Taking zzzExtra Depth Orthopedic Shoes (1 Pair) with Customized Heat Molded Multidensity Innersoles (3 Pair) . . . Dx: NIDDM/Polyneuropathy (E11.42), Hammertoe Foot Deformity (M20.41,M20.42), Preulcerative Skin Lesion(s) (L85.1) for . 04/12/2015 Not-Taki ng Clindamycin HCl 300 MG 1 capsule Orally every 8 hrs for 5 day(s) PRN 09/05/2015 Not-Taking Neurontin Not-Taking AmLactin Not-Taking Vitamin D Active glipiZIDE Active metFORMIN HCl Active Glucophage Active NIFEdipine ER Active Fenofibrate Active Extra Depth Orthopedic Shoes [...] Are you an other tobacco user? No Problems Problem Type SNOMED Code ICD Code Onset Dates Problem Status W/U Status Risk Notes Problem Polyneuropathy due to type 2 diabetes mellitus (791800981) Type 2 diabetes mellitus with diabetic polyneuropathy (E11.42) Active confirmed Vital Signs Height 5 ft 8 in in 01/15/2023 Weight 240 lbs 01/15/2023 BMI 36.49 kg/m2 01/15/2023 Procedures Procedure Date Ordered Date Performed Result Body Sit e 90209-Hccoocdm Plate 01/15/2023 N/A 29934-MWPM SKIN LESIONS, OVER 4 01/15/2023 N/A P7295-UFKYKHIO DYSTROPHIC NAILS ANY # 01/15/2023 N/A Encounters Encounter Location Date Provider Diagnosis [facility] [address] [place] [address] 01/15/2023 Yaima Leander Ingrowing nail L60.0 and Type 2 diabetes mellitus with diabetic polyneuropathy E11.42 Assessments Encounter Date Diagnosis (ICD Code) Assessment Notes Treatment Notes Treatment Clinical Notes Section Notes 01/15/2023 Ingrowing nail (ICD-10 - L60.0) 01/15/2023 Type 2 diabetes mellitus with diabetic polyneuropathy (ICD-10 - E11.42) Plan Of Treatment Pending Test Test Name Order Date 84188-Jjcwdbhj Plate 01/15/2023 70257-ZJKO SKIN LESIONS, OVER 4 01/16/20 23 W0779-WTXHKNNB DYSTROPHIC NAILS ANY # Next Appt Details Follow Up: 2 Weeks,prn, Reas on: Provider Name:Yaima Tabor , 05/26/2024 02:00:00 PM, [address] [place] [address], [phone], Provider Name:Yaima Tabor , 06/06/2024 03:15:00 PM, [address] [place] [address], [phone], Procedure Notes * Category Sub-Category Detail Notes Nail Avulsion Procedure A fine sterile e levator was used to loosen the eponychium, nail bed, nail plate and groove. A sterile nail splitter was then used to longitudinally section the nail. This section was removed. No underlying bone was identified. Procedure was performed under. Bacitracin and sterile dressings applied, local wound care instructions were dispensed. Patient was informed of both conservative and future surgical procedures to prevent recurrence, DIABETES: Matricectomy deferred due to diabetes risk Anesthesia was deferred - NEURO RM: patient has medically documented neuropathic condition affecting sensation Location Bilateral nail borde r, T1, Keratoma Treatment Parring or Cutting o f Benign Hyperkeratotic Lesion(s) 04835 ( >4 Lesions) - The Benign hyperkeratotic [...] Progress Notes * Debra HUFF EDOB: 1955 (67 yo F)Acc No.[id number]:01/15/2023 Progress Note Patient:?Mackenzie Huff Provider:?Yaima Tabor DPM :1955???Age:67 Y???Sex:Female D ate:01/15/2023 Address:[address] [place], [place] [phone] Pcp:Anna Chambers MD Subjective: * Chief Complaints: * ???Ingrown nail(s)At Risk Fo otcare * HPI: ???At Risk footcare:?Pt States Last PCP Visit:?Date?06/19/2022 * Medical History:? * Surgical History:?back surge ry * Hospitalization/Major Diagno stic Procedure:?Denies Past Hospitalization * Family History:?Mother: dece ased, cancer, diabetes, [...] the past year??No ?Points?0 ?Interpretation?Negative ???Miscellaneous:?Caffeine: yes, frequency:soda. ?Children: yes, 3. ?no Exercise. ?Marital status: . ?Occupation: Retired. * Medications:?TakingExtra-Dep th Diabetic Shoes with 3 Pair Custom heat-molded multi-density innersoles shoes molded inserts wear pedally dailyDiabetic Insoles Ibuprofen , Notes: PRNPropranolol HCl Extra Depth Orthopedic Shoes (1 Pair) with Customized Heat Molded Multidensity Innersoles (3 Pair) as directed Dx: NIDDM/Polyneuropathy (E11.42), Hammertoe Foot Deformity (M20.41,M20.42), Preulcerative Skin Lesion(s) (L85.1Fenofibrate NIFEdipine ER Glucophage metFORMIN HCl glipiZIDE Vitamin D Taking Extra-Depth Diabetic Shoes with 3 Pair Custom heat- molded multi-density innersoles shoes molded inserts wear pedally dailyTaking Diabetic Insoles Taking Ibuprofen , Notes: PRNTaking Propranolol HCl Taking Extra Depth Orthopedic Shoes (1 Pair) with Customized Heat Molded Multidensity Innersoles (3 Pair) as directed Dx: NIDDM/Polyneuropathy (E11.42), Hammertoe Foot Deformity (M20.41,M20.42), Preulcerative Skin Lesion(s) (L85.1Taking Fenofibrate Taking NIFEdipine ER Taking Glucophage Taking metFORMIN HCl Taking glipiZIDE Taking Vitamin D Not-Taking/PRNCiclopirox Olamine 0.77% Cream external Apply to effected areas twice a dayAmLactin Neurontin Clindamycin HCl 300 MG Capsule 1 capsule Orally every 8 hrs, Notes: PRNzzzExtra Depth Orthopedic Shoes (1 Pair) with Customized Heat Molded Multidensity Innersoles (3 Pair) . . . . Dx: NIDDM/Polyneuropathy (E11.42), Hammertoe Foot Deformity (M20.41,M20.42), Preulcerative Skin Lesion(s) (L85.1)Medication List reviewed and reconciled with the patientNot-Taking/PRN Ciclopirox Olamine 0.77% Cream external Apply to effected areas twice a dayNot-Taking/PRN AmLactin Not- Taking/PRN Neurontin Not-Taking/PRN Clindamycin HCl 300 MG Capsule 1 capsule Orally every 8 hrs, Notes: PRNNot-Taking/PRN zzzExtra Depth Orthopedic Shoes (1 Pair) with Customized Heat Molded Multidensity Innersoles (3 Pair) . . . . Dx: NIDDM/Polyneuropathy (E11.42), Hammertoe Foot Deformity (M20.41,M20.42), Preulcerative Skin Lesion(s) (L85.1)Medication List reviewed and reconciled with the patient * Allergies:?Amoxicillin: Efra rgyPenicillinyes[Allergies Verified] Objective: * Vitals:?Ht: 5 ft 8 in, Wt:24 0, BMI:36.49, Shoe size:10.5EEE, BS:not taken. * Examination: ???Ophthalmology Referral: ?DIABETES EYE EXAM?Diabetic Retinopathy Screening:?No ?Findings of Diabetic Eye Exam:?no retinopathy?Ingrown Nail: ?INSPECTION:?Reveals nail incurvation, dull pain on palpation due to neuropathy, groove hypertrophy , Bilateral nail borders , , T1.?Neurological: ?SENSORY:? Neurological exam demonstrates, reduced light touch [...] , Heel(s), B/L .? Assessment: * Assessment: 1.?Ingrowing nail - L60.0 (P rimary)?2.?Type 2 diabetes mellitus with diabetic polyneuropathy - E11.42? Plan: * Treatment: 2.?Type 2 diabetes mellitus with diabetic polyneuropathy?Procedure: 98252-ZZJJ SKIN LESIONS, OVER 4 ?Procedure: D9492-ZYYYJANT DYSTROPHIC NAILS ANY # * Procedures:?Keratoma Treatment:?Parring or Cutting of Benign Hyperkeratotic Lesion(s)?24867 ( >4 Lesions) - The Benign hyperkeratotic lesions, as described above were pared, and/or cut utilizing a sterile #15 blade, tissue nippers, and/or dremel.?Nail Avulsion:?Location?Bilateral nail border, T1, ?.?Anesthesia?was deferred - NEUROPATHY: patient has medically documented neuropathic condition affecting sensation.?Procedure?A fine sterile elevator was used to loosen the eponychium, nail bed, nail plate and groove. A sterile nail splitter was then used to longitudinally section the nail. This section was removed. No underlying bone was identified. Procedure was performed under. Bacitracin and sterile dressings applied, local wound care instructions were dispensed. Patient was informed of both conservative and future surgical procedures to prevent recurrence, DIABETES: Matricectomy deferred due to diabetes risk.?Nail Reduction:?Nail Reduction?Trimming of dystrophic nails performed to reduce/remove overall nail length and girth, by manual and electrical means with use of a nail nipper and/or dremel, to more viable healthy nail plate or bed tissue 6-10 (G0127).? * Procedure Codes:?85638 Avuls ion Plate, Modifiers: T1 95095 TRIM SKIN LESIONS, OVER 4, Modifiers: XS G0127 TRIMMING DYSTROPHIC NAILS ANY #, Modifiers: XS * Follow Up:?2 Weeks,prn * Images: * Sign off status: Completed true * Provider:?Yaima Tabor DPM Date:?2022 Generated for Alexsandra childress/Leigha/Altagraciasmitting on:?05/11/2024 02:18 PM EDT History and Physical Notes * HPI (History of Present Illness) Category Sub-Category Detail Notes Category Not es At Risk footcare Pt States Last PCP Visit: Date: 3 Examination Category Sub-Category Detail Notes Category Not es Ingrown Nail INSPECTION: Reveals nail inc urvation, dull pain on palpation due to neuropathy, groove hypertrophy , Bilateral nail borders , , T1 Neurological SENSORY: Neurological exa m demonstrates, reduced [...]
[2024-05-11 14:23] LABS: Free T4 (Free Thyroxine) 1.03 ng/dL (0.71-1.85); Thyroid Stimulating Hormone 0.31 uIU/mL (0.32-4.0)
== END 2024-05-11 11:45 | disposition home or self-care (01) ==
LOC: HO.HMGCLDS 11:44
PROVIDERS: PCP Internal Medicine; Visit Provider Internal Medicine
DX: E07.9 Disorder of thyroid, unspecified (principal)
CPT/HCPCS: 36415; 84439; 84443

== ENCOUNTER 2024-08-16 14:42 | Outpatient (AMB) | payer MEDICARE, BC, SELFPAY ==
--- OUTSIDE RECORDS SUMMARY | 2024-05-26 10:00 | XMS_ITS ---
Author Organization [facility] Address [address] [place] [address] Care Team Providers Care Registered Radiation Therapist Name Role Phone Trish MARTE, Anna Primary Care Provider Unavail vadim LeanderMelbae Unavailable [phone] Encounters Encounter Location Date Provider Diagnosis [address] [address] 05/26/2024 Yaima Tabor Plan Of Treatment Next Appt Details Provider Name:Yaima Tabor , 10/06/2024 02:30:00 PM, [address] [place] [address], [phone], Progress Notes * Debra HUFF EDOB: 1955 (69 yo F)Acc No.[id number]:05/26/2024 Progress Note Patient: Que Debra GOMEZ Provider: Delmi Tabor DPM :1955 A ge:68 Y S ex:Female Date:05/26/2024 Address:[address] [place], [place] [address]V[place] [phone] Pcp:Anna Chambers MD Subjective: * Chief Complaints: [...] 05/26/2024 Generated for Alexsandra childress/Leigha/Trini on: 0 08/16/2024 03:28 PM EDT
--- NOTE | 2024-08-16 14:43 | A.OFFPC_ITS ---
Intake Visit Reasons: DM Intake Note: Telehealth DM follow up Institutional Custodian Required: No Accompanied by: Self / Same As Patient Allergies amoxicillin Allergy (Intermediate, Verified 08/16/24 15:20) hives, hand swelling, itch, feet swelling Medication List - Last Reconciled 08/16/24 by Anna Magana MD aspirin 81 mg PO DAILY 90 days atorvastatin 80 mg PO BEDTIME 90 days blood-glucose sensor ([employer] [place] 3 Sensor device) As directed change every 14 days zhtfazqksj-hatykulqahjol-azyv 50-325-40 mg 1 tab PO BID PRN 30 days cholecalciferol (vitamin D3) TAKE 1 CAPSULE BY MOUTH EVERY DAY clonazepam 0.5 mg PO DAILY 90 days duloxetine 120 mg (2 x 60 mg) PO DAILY 90 days fenofibrate nanocrystallized 145 mg PO DAILY 90 days fluocinolone acetonide oil 0.01% (DermOtic Oil) 5 drps otic (ears) BID 7 days glipizide 10 mg (2 x 5 mg) PO BID losartan TAKE 1 TABLET BY MOUTH EVERY DAY metformin ER 500 mg PO BID ondansetron HCl 4 mg PO Q8H PRN OneTouch Delica Plus Lancet (lancets) Check once daily NS OneTouch Verio test strips (blood sugar diagnostic) once daily NS pantoprazole 40 mg PO DAILY 90 days propranolol ER 80 mg PO DAILY sumatriptan succinate 25 mg PO Q2-4H PRN 30 days trazodone 50 - 100 mg (1 - 2 x 50 mg) PO BEDTIME PRN Tobacco use date assessed: 04/28/24 Dental Screening Dental Screen Date: 04/28/24 HPI HPI Comments History of Present Illness Details This is a 69-year-old female with diabetes mellitus type 2, hyperlipidemia, migraines and GERD that has tele health visit by phone for follow-up on her conditions. Last A1c was in January and he was 7.7%. She does not check her sugars regularly but does follow with endocrinology. Last LDL was close to goal and this will be repeated for next office visit. Migraines well controlled with Fioricet as needed. GERD stable with PPIs. Patient complains of bilateral knee pain and would like an x-ray. [facility] Medical History (Updated 08/16/24 @ 15:28 by Anna Magana MD) Anxiety Hypersomnia Insomnia Mild recurrent major depression Left knee pain Right hip pain Left hip pain GERD (gastroesophageal reflux disease) Hypovitaminosis D Migraines Mixed hyperlipidemia Obese Depression with anxiety Essential hypertension Hyperthyroidism Diabetes mellitus Hirsutism Vitamin D deficiency Essential hypertension Dyslipidemia Diabetes type 2, uncontrolled Toxic multinodular goiter Surgical History Previous back surgery Status post biopsy of thyroid gland Hx of removal of neck cyst History of back surgery Family History Father Hypertension Substance use disorder Mother Type 2 diabetes mellitus Lung cancer Social History Household Members: None Housing: House Alcohol intake: never Patient Tobacco Use Status: Former Tobacco user Tobacco use type: Cigarette e-Cigarette/Vaping Use: Never Used Second Hand Smoke Exposure: No service: No Current occupational status: retired Cognitive needs: Yes Hearing needs: No Vision needs: No Questionnaire Thrive Questionnaire Date Thrive assessed: 04/28/24 HAMMAD-7 AMB Questionnaire HAMMAD-7 Date HAMMAD - 7 assessed: 04/28/24 Source: Developed by Drs. Jun Moncada, Antonina Emery, Balta Lopez and colleagues, with an educational darío from [employer]. Review of Systems Const All systems reviewed & are unremarkable except as noted in HPI and below Card Denies chest pain at rest, Denies chest pain with activity, Denies edema, Denies irregular heart rhythm, Denies claudication, Denies dyspnea, Denies dyspnea on exertion, Denies orthopnea, Denies paroxysmal nocturnal dyspnea and Denies slow heart rate Resp Denies cough, Denies dyspnea and Denies dyspnea on exertion GI Denies abdominal pain, Denies change in bowel habits, Denies excessive flatus, Denies nausea and Denies vomiting Denies urinary incontinence, Denies urinary hesitancy and Denies urinary urgency Musc Denies abnormal gait, Denies atrophy, Denies deformity and Denies limited range of motion Skin/Breast Denies bleeding lesions, Denies changing lesions and Denies rash Neuro Denies abnormal gait and Denies lack of coordination Physical exam (Primary Care) Tobacco/Smoking Status: Tobacco use Status Tobacco use date assessed 04/28/24 08/16/24 14:47 Patient Tobacco Use Status Former Tobacco user 08/16/24 14:47 Tobacco use type Cigarette 08/16/24 14:47 e-Cigarette/Vaping Use Never Used 08/16/24 14:47 Thrive Assessment: Date of Thrive Assessment Date Thrive assessed 04/28/24 08/16/24 14:47 Telehealth Telehealth Telehealth Platform: Telephone Location of provider rendering services: practice address Location of patient: address on file Patient Identification confirmed using: Name, : Yes Telehealth method: voice only Patient verbally consented to treatment: Yes Patient verbally consented to billing insurance company: Yes Patient informed of any privacy concerns related to visit: Yes Minutes spent on Phone/Video with Pt.: 15 Coding Level of Care Code Tele Est Pt Level 4 (58796) Diagnoses Type 2 diabetes mellitus without complication, without long-term current use of insulin E11.9 Diabetes mellitus type: type 2 Diabetes mellitus alf insulin use: without intermediate teacher use Diabetes mellitus complication status: without complication Mixed hyperlipidemia E78.2 GERD (gastroesophageal reflux disease) K21.9 Chronic pain of left knee M25.562; G89.29 Chronicity: chronic Right knee pain M25.561 Migraines G43.909 Time Spent (min) 15 Assessment & Plan Assessment & Plan (1) Diabetes mellitus: Code(s): E11.9 - Type 2 diabetes mellitus without complications Category: Medical Qualifiers: Diabetes mellitus type: type 2 Diabetes mellitus intermediate teacher insulin use: without intermediate teacher use Diabetes mellitus complication status: without complication Qualified Code(s): E11.9 - Type 2 diabetes mellitus without complications (2) Mixed hyperlipidemia: Code(s): E78.2 - Mixed hyperlipidemia Category: Medical (3) GERD (gastroesophageal reflux disease): Code(s): K21.9 - Gastro-esophageal reflux disease without esophagitis Category: Medical (4) Left knee pain: Code(s): M25.562 - Pain in left knee Category: Medical Qualifiers: Chronicity: chronic Qualified Code(s): M25.562 - Pain in left knee; G89.29 - Other chronic pain (5) Right knee pain: Code(s): M25.561 - Pain in right knee Category: Medical (6) Migraines: Code(s): G43.909 - Migraine, unspecified, not intractable, without status migrainosus Category: Medical Plan Continue current meds. Follow-up with endocrinology. Repeat labs. X-ray of knees ordered. Orders: Orders Lipid Panel 4 Months E78.5 - Hyperlipidemia, unspecified Vitamin B12 and Folate 4 Months E53.8 - Deficiency of other specified B group vitamins Vitamin D 25-OH Total 4 Months E55.9 - Vitamin D deficiency, unspecified Microalbumin, Random (w Creat) 4 Months R80.9 - Proteinuria, unspecified Comprehensive [place]. Panel Fast 4 Months I10 - Essential (primary) hypertension XR knee LT 2V Today M25.562 - Pain in left knee XR knee RT 2V Today M25.561 - Pain in right knee Medications: Refilled fvszixdqzc-ihdjztmarcaab-vjwz 50-325-40 mg 1 tab PO BID PRN 60 tabs 0RF pain 30 days
== END 2024-08-16 16:13 | disposition home or self-care (01) ==
LOC: HO.HMCH 14:42
PROVIDERS: PCP Internal Medicine; Visit Provider Internal Medicine
DX: E11.69 Type 2 diabetes mellitus with other specified complication (principal); E78.2 Mixed hyperlipidemia; K21.9 Gastro-esophageal reflux disease without esophagitis; M25.562 Pain in left knee; G89.29 Other chronic pain; M25.561 Pain in right knee; G43.909 Migraine, unspecified, not intractable, without status migrainosus

== ENCOUNTER 2024-08-24 14:56 | Outpatient (AMB) | payer MEDICARE, BC, SELFPAY ==
--- OUTSIDE RECORDS SUMMARY | 2024-05-26 10:00 | XMS_ITS ---
Author Organization [facility] Address [address] [place] [address] Care Team Providers Care Extension Forester Name Role Phone Trish MARTE, Anna Primary Care Provider Unavail vadim LeanderMelbae Unavailable [phone] Encounters Encounter Location Date Provider Diagnosis [address] [address] 05/26/2024 Yaima Tabor Plan Of Treatment Next Appt Details Provider Name:Yaima Tabor , 10/06/2024 02:30:00 PM, [address] [place] [address], [phone], Progress Notes * Debra HUFF EDOB: 1955 (69 yo F)Acc No.[id number]:05/26/2024 Progress Note Patient: Que Debra GOMEZ Provider: Delmi Tabor DPM :1955 A ge:68 Y S ex:Female Date:05/26/2024 Address:[address] [place], [place] [address]al [phone] Pcp:Anna Chambers MD Subjective: * Chief Complaints: [...] 0 05/26/2024 Generated for Alexsandra childress/Leigha/Trini on: 0 08/24/2024 03:27 PM EDT
--- NOTE | 2024-08-24 14:58 | A.OFFVIS_ITS ---
Vital Signs 08/24/24 14:59 Height 5 ft 8 in Weight 220 lb 7.396 oz BMI 33.5 BP 136/90 H Blood Pressure Location Rt brachial Position Sitting Pulse 70 Pulse Source Pulse Oximeter Pulse Oximetry (%) 92 Oxygen Delivery Method Room Air Intake Visit Reasons: T2DM Intake Note: Patient presents today to follow up on D2MT. Last Diabetic Eye exam: DUE Last Podiatry Visit: 01/2023 Most Recent HgA1c: 7.2%, 08/25/2023 Random Glucose: 180 mg/dL [employer] Professor Required: No Accompanied by: Self / Same As Patient Allergies amoxicillin Allergy (Intermediate, Verified 08/24/24 15:07) hives, hand swelling, itch, feet swelling HPI Comments Details: 68 yo female for for toxic multinodular goiter and diabetes presenting for follow up DM diagnosis 2004. Current medicatins: glipizide 10mg twice daily metformin 500mg twice daily, Has not started. Has mounjaro 2.5mg daily (has not started just got approved) at her house. A1C 7.2% from 7.7 from 7.8%. Eye exam overdue On ARB, statin MNG She had fine-needle aspiration on 03/08/2020 of right mid pole nodule and the right lower pole nodule both nodules were benign follicular nodule [place] category 2. She had fine-needle aspiration of right mid pole on 10/21/2018 cytology was consistent with benign follicular nodule [place] category 2. She had FNA of right mid pole nodule size 2.5 x 1.7 x 1.6 on 09/26/16 consistent with benign follicular nodule She also has Toxic multinodular goiter, off MMI She was referred at last visit to Dr Irvin but says she needs oral surgery prior to undergoing this surgery. She has not followed up. Realizes that her labs are overdue and plans to get this nato ROS CONSTITUTIONAL: Denies weight loss, fever and chills. HEENT: Denies changes in vision and hearing. RESPIRATORY: Denies SOB and cough. CV: Denies palpitations and CP GI: Denies abdominal pain, nausea, vomiting and diarrhea. : Denies dysuria and urinary frequency. MSK: Denies new myalgia and joint pain. SKIN: Denies rash and pruritus. NEUROLOGICAL: Denies headache PSYCHIATRIC: Denies recent changes in mood. PHYSICAL EXAM: GENERAL: Alert and oriented x 3. NAD EYES: EOMI. Anicteric. HENT: Moist mucous membranes. No scleral icterus. No cervical lymphadenopathy. LUNGS: Clear to auscultation bilaterally. CARDIOVASCULAR: Regular rate and rhythm. No murmur. No JVD. ABDOMEN: Soft, non-tender +bs EXTREMITIES: No edema. Non-tender. SKIN: No rashes or lesions. Warm. NEUROLOGIC: No focal neurological deficits. CN II-XII grossly intact PSYCHIATRIC: Cooperative. Appropriate mood and affect [facility] Medical History Anxiety Hypersomnia Insomnia Mild recurrent major depression Left knee pain Right hip pain Left hip pain GERD (gastroesophageal reflux disease) Hypovitaminosis D Migraines Mixed hyperlipidemia Obese Depression with anxiety Essential hypertension Hyperthyroidism Diabetes mellitus Hirsutism Vitamin D deficiency Essential hypertension Dyslipidemia Diabetes type 2, uncontrolled Toxic multinodular goiter Surgical History Previous back surgery Status post biopsy of thyroid gland Hx of removal of neck cyst History of back surgery Family History Father Hypertension Substance use disorder Mother Type 2 diabetes mellitus Lung cancer Social History Household Members: None Housing: House Alcohol intake: never Patient Tobacco Use Status: Former Tobacco user Tobacco use type: Cigarette e-Cigarette/Vaping Use: Never Used Second Hand Smoke Exposure: No service: No Current occupational status: retired Cognitive needs: Yes Hearing needs: No Vision needs: No Physical Exam Vital Signs: Last Vital Signs Pulse 70 08/24/24 14:59 BP 136/90 H 08/24/24 14:59 Pulse Ox 92 08/24/24 14:59 Oxygen Delivery Method Room Air 08/24/24 14:59 BMI result Body Mass Index 33.5 Results AMB Hemoglobin A1c AMB Hemoglobin A1c 7.2 % Last Edit by LUPE Tolliver on 08/24/24 15:16 Results Reviewed Results Reviewed: Laboratory Last Values Glucose (Clinic) 180 mg/dL (60-115) H 08/24/24 15:04 Hgb A1c (Clinic) 7.2 % (4.0-6.0) H 08/24/24 15:14 Assessment & Plan Assessment & Plan (1) Diabetes mellitus: Code(s): E11.9 - Type 2 diabetes mellitus without complications Category: Medical Qualifiers: Diabetes mellitus complication status: without complication Diabetes mellitus assisted insulin use: without buttermaker helper use Diabetes mellitus type: type 2 Qualified Code(s): E11.9 - Type 2 diabetes mellitus without complications Plan: Suboptimal control She notes that insurance will be approving the mounjaro so she will be starting this imminently Advised 6 week follow up to see progress on medications (2) Toxic multinodular goiter: Code(s): E05.20 - Thyrotoxicosis with toxic multinodular goiter without thyrotoxic crisis or storm Category: Medical Plan: Advised to do her labs and follow up with Dr Irvin for surgery Orders: Orders AMB Hemoglobin A1c 08/24/24 E11.9 - Type 2 diabetes mellitus without complications Medications: New Mounjaro (tirzepatide) for 4 weeks 2.5 mg (0.5 mL) subcut QWEEK 6 mL 3RF NS Coding Diagnoses Type 2 diabetes mellitus without complication, without long-term current use of insulin E11.9 Diabetes mellitus complication status: without complication Diabetes mellitus buttermaker helper insulin use: without buttermaker helper use Diabetes mellitus type: type 2 Toxic multinodular goiter E05.20
[2024-08-24 14:59] VITALS: BP 136/90; PULSE 70; O2SAT 92; BMI 33.5
[2024-08-24 15:08] LABS: Glucose, Whole Blood 180 mg/dL (60-115)
== END 2024-08-24 15:36 | disposition home or self-care (01) ==
LOC: HO.ENCR 14:57
PROVIDERS: PCP Internal Medicine; Visit Provider Internal Medicine
DX: E11.9 Type 2 diabetes mellitus without complications (principal)

== ENCOUNTER → 2024-08-24 14:56 | Outpatient (BNVA) | payer MEDICARE, BC, SELFPAY | PROVIDERS: PCP Internal Medicine; Visit Provider Internal Medicine | DX: E11.9 Type 2 diabetes mellitus without complications (principal); E05.20 Thyrotoxicosis with toxic multinodular goiter without thyrotoxic crisis or storm; Z79.84 Long term (current) use of oral hypoglycemic drugs | CPT/HCPCS: 82947; 83036; 99212 ==

== ENCOUNTER 2024-10-27 08:31 | Outpatient (REF) | payer MEDICARE, BC, SELFPAY ==
--- NOTE | ~2024-10-27 | XR_ITS ---
EXAMINATION: XR KNEE, RIGHT CLINICAL INFORMATION: M25.561 - Pain in right knee COMPARISON: March 05, 2017. TECHNIQUE: AP and lateral views of the right knee. FINDINGS: No acute cortical disruption or malalignment. No suprapatellar bursa joint effusion. Small marginal osteophyte formation in the posterior superior patella. No lytic or blastic lesions. Vascular calcifications. No subcutaneous emphysema. XR/XR knee RT 2V IMPRESSION: Mild osteoarthrosis/osteoarthritis at the patellofemoral joint. Atherosclerosis disease, peripheral. Electronically signed by: Gentry Garcia MD 10/27/2024 09:23 AM EDT
--- NOTE | ~2024-10-27 | XR_ITS ---
EXAMINATION: XR KNEE, LEFT CLINICAL INFORMATION: M25.562 - Pain in left knee COMPARISON: July 09, 2021 TECHNIQUE: AP and lateral views of the left knee. FINDINGS: Marginal osteophyte formation in the lateral tibial plateau and lateral femoral condyle as well as the posterior superior and posterior inferior patella. Mild asymmetric joint space narrowing involving mostly the patellofemoral joint. No acute cortical disruption or malalignment. No suprapatellar bursa effusion. Vascular calcifications. No lytic or blastic lesions. XR/XR knee LT 2V IMPRESSION: Tricompartmental osteoarthrosis/osteoarthritis involving mostly the lateral compartment and the patellofemoral joint. Atherosclerosis disease, peripheral. Electronically signed by: Gentry Garcia MD 10/27/2024 09:25 AM EDT
--- NOTE | ~2024-10-27 | US_ITS ---
CLINICAL HISTORY: R10.9 - Unspecified abdominal pain US abdomen complete Comparison: US/AR - US ABDOMEN - 12/08/19 13:12 EDT Findings: The visualized pancreas is normal. The aorta and inferior vena cava are normal caliber. The liver is enlarged with increased hepatic echogenicity. Liver length 18.4 cm. There is no intrahepatic bile duct dilatation. The common duct is 6 mm in diameter. The gallbladder is normal. There is no sonographic Mckeon sign. The main portal vein is antegrade. The right kidney is 12.9 cm in length. The left kidney is 12.3 cm in length. The spleen is was not seen. No ascites. IMPRESSION: 1. Hepatic steatosis and hepatomegaly. This document has been electronically signed by: Verna Fernandez MD on 10/28/2024 08:50:45
--- NOTE | ~2024-10-27 | XR_ITS ---
EXAMINATION: XR HIP, LEFT CLINICAL INFORMATION: M25.552 - Pain in left hip COMPARISON: July 09, 2021 TECHNIQUE: AP and oblique views of the left hip. FINDINGS: Sclerosis along the articular surface of the left acetabulum. Asymmetric joint space narrowing. No acute cortical disruption or malalignment. No lytic or blastic lesions. Small osteophyte formation in the greater trochanter left femur. Cortical irregularity at the superior pubic ramus junction to the symphysis pubis. Vascular calcifications. Sclerosis and the left sacroiliac joint. XR/XR hip LT min 2V IMPRESSION: Osteoarthrosis/osteoarthritis, mild, left coxofemoral joint and symphysis pubis. Probable old traumatic deformity left superior pubic ramus. Sacroiliitis, left-sided. Electronically signed by: Gentry Garcia MD 10/27/2024 09:27 AM EDT
--- NOTE | ~2024-10-27 | XR_ITS ---
EXAMINATION: XR HIP, RIGHT CLINICAL INFORMATION: M25.551 - Pain in right hip COMPARISON: July 09, 2021 TECHNIQUE: AP and oblique views of the right hip. FINDINGS: Sclerosis along the articular surface of the acetabulum and femoral head. Asymmetric joint space narrowing. No acute cortical disruption or malalignment. No lytic or blastic lesions. Well-corticated calcification overlapping the right gluteal region. XR/XR hip RT min 2V IMPRESSION: Mild osteoarthrosis/osteoarthritis, right coxofemoral joint. Electronically signed by: Gentry Garcia MD 10/27/2024 09:29 AM EDT
== END 2024-10-27 08:32 | disposition home or self-care (01) ==
LOC: HO.HMGCX 08:31
PROVIDERS: PCP Internal Medicine; Visit Provider Internal Medicine
DX: M25.551 Pain in right hip (principal); M25.552 Pain in left hip; M25.562 Pain in left knee; M25.561 Pain in right knee; R10.9 Unspecified abdominal pain
CPT/HCPCS: 73502; 73560; 76700

== ENCOUNTER → 2024-10-27 09:04 | Outpatient (BNV) | payer MEDICARE, BC, SELFPAY | PROVIDERS: PCP Internal Medicine; Visit Provider Radiology Diagnostic Radiology | DX: M16.0 Bilateral primary osteoarthritis of hip (principal); M17.0 Bilateral primary osteoarthritis of knee | CPT/HCPCS: 73502; 73560 ==

== ENCOUNTER 2024-11-24 15:24 | Outpatient (AMB) | payer MEDICARE, BC, SELFPAY ==
--- OUTSIDE RECORDS SUMMARY | 2024-05-26 10:00 | XMS_ITS ---
Author Organization [facility] Address [address] [place] [address] Care Team Providers Care Assembler Unit Name Role Phone Trish MARTE, Anna Primary Care Provider Unavail vadim LeanderMelbae Unavailable [phone] Encounters Encounter Location Date Provider Diagnosis [address] [phone] 05/26/2024 Yaima Tabor Plan Of Treatment Next Appt Details Provider Name:Yaima Tabor , 03/23/2025 02:15:00 PM, [address] [place] [address], [phone], Progress Notes * Debra HUFF EDOB: 1955 (69 yo F)Acc No.[id number]:05/26/2024 Progress Note Patient: Que Debra GOMEZ Provider: Delmi Tabor DPM :1955 A ge:68 Y S ex:Female Date:05/26/2024 Address:[address] [place], [place] [address]V[place]al [phone] Pcp:Anna Chambers MD Subjective: * Chief Complaints: * * Medical History: Objective: * Vitals: Assessment: Plan: * Treatment: * Images: * The named appointment provid er may or may not be the originator of this progress note, and it is not deemed complete until electronically signed by the appointment provider. Sign off status: Pending * Provider: Delmi Tabor DPM Date: 0 05/26/2024 Generated for Alexsandra childress/Leigha/Trini on: 1 07:12 PM EDT
--- OUTSIDE RECORDS SUMMARY | 2024-10-06 10:30 | XMS_ITS ---
Author Organization [facility] Address [address] [place] [address] Care Team Providers Care Rollway Worker Name Role Phone Trish MARTE, Anna Primary Care Provider Unavail able Leander Yaima Unavailable [phone] Nolasco Encounters Encounter Location Date Provider Diagnosis [address] [address] 10/06/2024 Yaima Leander Plan Of Treatment Next Appt Details Provider Name:Yaima Tabor , 03/23/2025 02:15:00 PM, [address] [place] [address], [phone], Progress Notes * Debra HUFF EDOB: 1955 (69 yo F)Acc No.[id number]:10/06/2024 Progress Note Patient: Que Debra GOMEZ Provider: Delmi Tabor DPM :1955 A ge:69 Y S ex:Female Date:10/06/2024 Address:[address] [place], [place] [address]Vishal [id number] Pcp:Anna Chambers MD Subjective: * Chief Complaints: * [address] Nolasco. * Medical History: Objective: * Vitals: Assessment: Plan: * Treatment: * Images: * The named appointment provid er may or may not be the originator of this progress note, and it is not deemed complete until electronically signed by the appointment provider. Sign off status: Pending * Provider: Delmi Tabor DPM Date: 0 10/06/2024 Generated for Alexsandra childress/Leigha/Trini on: 1 07:12 PM EDT
--- OUTSIDE RECORDS SUMMARY | 2024-11-03 10:30 | XMS_ITS ---
Author Organization [facility] Address [address] [place] [id number] Care Team Providers Care Sleeve Fixer Name Role Phone Trish MARTE, Anna Primary Care Provider Unavail vadim LeanderMelbae Unavailable [phone] Encounters Encounter Location Date Provider Diagnosis [address] [address] 11/03/2024 Yaima Tabor Plan Of Treatment Next Appt Details Provider Name:Yaima Tabor , 03/23/2025 02:15:00 PM, [address] [place] [address], [phone], Progress Notes * Debra HUFF EDOB: 1955 (69 yo F)Acc No.[id number]:11/03/2024 Progress Note Patient: Que Debra GOMEZ Provider: Delmi Tabor DPM :1955 A ge:69 Y S ex:Female Date:11/03/2024 Address:[address] [place], [place] [address]V[place] [id number] Pcp:Anna Chambers MD Subjective: * Chief Complaints: * * Medical History: Objective: * Vitals: Assessment: Plan: * Treatment: * Images: * The named appointment provid er may or may not be the originator of this progress note, and it is not deemed complete until electronically signed by the appointment provider. Sign off status: Pending * Provider: Delmi Tabor DPM Date: 0 11/03/2024 Generated for Alexsandra childress/Leigha/Trini on: 1 07:12 PM EDT
--- OUTSIDE RECORDS SUMMARY | 2024-11-07 04:30 | XMS_ITS ---
Author Organization [facility] Address [address] [place] [phone] Care Team Providers Care Haulpak Driver Name Role Phone Trish MARTE, Anna Primary Care Provider Unavail able Leander Yaima Unavailable [phone] Nolasco Encounters Encounter Location Date Provider Diagnosis [address] [address] 11/07/2024 Yaima Leander Plan Of Treatment Next Appt Details Provider Name:Yaima Tabor , 03/23/2025 02:15:00 PM, [address] [place] [address], [phone], Progress Notes * Debra HUFF EDOB: 1955 (69 yo F)Acc No.[id number]:11/07/2024 Progress Note Patient: Que Debra GOMEZ Provider: Delmi Tabor DPM :1955 A ge:69 Y S ex:Female Date:11/07/2024 Address:[address] [place], [place] [address]Vishal [phone] Pcp:Anna Chambers MD Subjective: * Chief Complaints: [...] * Provider: Delmi Tabor DPM Date: 0 11/07/2024 Generated for Alexsandra childress/Leigha/Trini on: 1 07:13 PM EDT
[2024-11-24 15:29] VITALS: BP 120/78; PULSE 85; O2SAT 95; BMI 33.9
--- NOTE | 2024-11-24 15:29 | A.OFFVIS_ITS ---
Vital Signs 11/24/24 15:29 Height 5 ft 8 in Weight 222 lb 10.67 oz BMI 33.9 BP 120/78 Blood Pressure Location Rt brachial Position Sitting Pulse 85 Pulse Source Pulse Oximeter Pulse Oximetry (%) 95 Oxygen Delivery Method Room Air Intake Visit Reasons: DM Intake Note: Patient presents today for a follow-up on Type 2 Diabetes Mellitus: Last Diabetic eye exam was on: DUE Last Podiatry exam was on: 06/06/2024, [facility] Most recent HbA1c: 7.4%, 11/2024 Random Glucose: 161 mg/dL Scrub Technician Required: No Accompanied by: Self / Same As Patient Allergies amoxicillin Allergy (Intermediate, Verified 11/24/24 15:31) hives, hand swelling, itch, feet swelling HPI Comments Details: 68 yo female for for toxic multinodular goiter and diabetes presenting for follow up DM diagnosis 2004. Current medicatins: glipizide 10mg twice daily metformin 500mg twice daily, Has mounjaro at her house-2.5mg daily-she never started it. She has an abd u/s for right sided abdominal discomfort ordered A1C 7.4% from 7.2% from 7.7 from 7.8%. Eye exam overdue On ARB, statin MNG-she met with Dr Irvin. Surgery was recommended. She has some oral surgery that she wanted to have done first but she has not completed this. She plans to follow up with this She had fine-needle aspiration on 03/08/2020 of right mid pole nodule and the right lower pole nodule both nodules were benign follicular nodule Marion category 2. She had fine-needle aspiration of right mid pole on 10/21/2018 cytology was consistent with benign follicular nodule Marion category 2. She had FNA of right mid pole nodule size 2.5 x 1.7 x 1.6 on 09/26/16 consistent with benign follicular nodule She also has Toxic multinodular goiter, off MMI ROS CONSTITUTIONAL: Denies weight loss, fever and chills. HEENT: Denies changes in vision and hearing. RESPIRATORY: Denies SOB and cough. CV: Denies palpitations and CP GI: Denies abdominal pain, nausea, vomiting and diarrhea. : Denies dysuria and urinary frequency. MSK: Denies new myalgia and joint pain. SKIN: Denies rash and pruritus. NEUROLOGICAL: Denies headache PSYCHIATRIC: Denies recent changes in mood. PHYSICAL EXAM: GENERAL: Alert and oriented x 3. NAD EYES: EOMI. Anicteric. HENT: Moist mucous membranes. No scleral icterus. No cervical lymphadenopathy. LUNGS: Clear to auscultation bilaterally. CARDIOVASCULAR: Regular rate and rhythm. No murmur. No JVD. ABDOMEN: Soft, non-tender +bs EXTREMITIES: No edema. Non-tender. SKIN: No rashes or lesions. Warm. NEUROLOGIC: No focal neurological deficits. CN II-XII grossly intact PSYCHIATRIC: Cooperative. Appropriate mood and affect [facility] Medical History Anxiety Hypersomnia Insomnia Mild recurrent major depression Left knee pain Right hip pain Left hip pain GERD (gastroesophageal reflux disease) Hypovitaminosis D Migraines Mixed hyperlipidemia Obese Depression with anxiety Essential hypertension Hyperthyroidism Diabetes mellitus Hirsutism Vitamin D deficiency Essential hypertension Dyslipidemia Diabetes type 2, uncontrolled Toxic multinodular goiter Surgical History Previous back surgery Status post biopsy of thyroid gland Hx of removal of neck cyst History of back surgery Family History Father Hypertension Substance use disorder Mother Type 2 diabetes mellitus Lung cancer Social History Household Members: None Housing: House Alcohol intake: never Patient Tobacco Use Status: Former Tobacco user Tobacco use type: Cigarette e-Cigarette/Vaping Use: Never Used Second Hand Smoke Exposure: No service: No Current occupational status: retired Cognitive needs: Yes Hearing needs: No Vision needs: No Physical Exam Vital Signs: Last Vital Signs Pulse 85 11/24/24 15:29 BP 120/78 11/24/24 15:29 Pulse Ox 95 11/24/24 15:29 Oxygen Delivery Method Room Air 11/24/24 15:29 BMI result Body Mass Index 33.9 Results AMB Hemoglobin A1c AMB Hemoglobin A1c 7.4 % Last Edit by LUPE Tolliver on 11/24/24 16:01 Results Reviewed Results Reviewed: Laboratory Last Values Glucose (Clinic) 161 mg/dL (60-115) H 11/24/24 15:36 Assessment & Plan Assessment & Plan Orders: Orders Thyroid Peroxidase Antibodies Today E05.20 - Thyrotoxicosis with toxic multinodular goiter without thyrotoxic crisis or storm, E11.9 - Type 2 diabetes mellitus without complications US thyroid Today E05.20 - Thyrotoxicosis with toxic multinodular goiter without thyrotoxic crisis or storm, E05.90 - Thyrotoxicosis, unspecified without thyrotoxic crisis or storm TSH reflex Free T4 Today E05.20 - Thyrotoxicosis with toxic multinodular goiter without thyrotoxic crisis or storm, E05.90 - Thyrotoxicosis, unspecified without thyrotoxic crisis or storm AMB Hemoglobin A1c Today E11.9 - Type 2 diabetes mellitus without complications Referrals Cologuard Test Z12.11 - Encounter for screening for malignant neoplasm of colon, Z12.12 - Encounter for screening for malignant neoplasm of rectum Coding
[2024-11-24 15:39] LABS: Glucose, Whole Blood 161 mg/dL (60-115)
--- OUTSIDE RECORDS SUMMARY | 2024-11-24 19:13 | XMS_ITS | Patient Health Record ---
Author Organization [facility] Address [address] [place] [address] Care Team Providers Care Director Quality Systems Name Role Phone Trish MARTE, Anna Primary Care Provider Unavail able Black, Yaima Unavailable [phone] Allergies Allergen (clinical drug ingredient) Drug/Non Drug Allergy documented on EMR Reaction Allergy Type Onset Date Status amoxicillin Amoxicillin Unknown Drug Allergy Act rogelio Penicillin Unknown Drug Allergy Active Results Component Value Reference Range Notes HEMOGLOBIN A1C (GLYCOHEMOGLO BIN) Reviewed date:06/06/2024 03:21:57 PM Interpretation: Performing Lab: Notes/Report: HEMOGLOBIN A1C % (HH) 7.5 Reason For Referral No Information Medications Medication SIG (Take, Route, Frequency, Duration) Notes Start Date End Date Status Extra Depth Orthopedic Shoes (1 Pair) with Customized Heat Molded Multidensity Innersoles (3 Pair) Dx: NIDDM/Polyneuropathy (E11.42), Hammertoe Foot Deformity (M20.41,M20.42), Preulcerative Skin Lesion(s) (L85.1); Duration: 365 days 11/16/2024 Active Vitamin D Active Extra Depth Orthopedic Shoes (1 Pair) with Customized Heat Molded Multidensity Innersoles (3 Pair) as directed Dx: NIDDM/Polyneuropathy (E11.42), Hammertoe Foot Deformity (M20.41,M20.42), 01/21/2024 Not-Taking metFORMIN HCl Active glipiZIDE Active Glucophage Not-Takin g NIFEdipine ER Not-Ta matt Ciclopirox Olamine 0.77% external Apply to effected areas twice a day; Duration: 30 days 06/13/2013 Not-Takin g Propranolol HCl Acti ve Clindamycin HCl 300 MG 1 capsule Orally every 8 hrs; Duration: 5 day(s) PRN 09/05/2015 Not-Taki ng Fenofibrate Active zzzExtra Depth Orthopedic Shoes (1 Pair) with Customized Heat Molded Multidensity Innersoles (3 Pair) . . . Dx: NIDDM/Polyneuropathy (E11.42), Hammertoe Foot Deformity (M20.41,M20.42), Preulcerative Skin Lesion(s) (L85.1); Duration: . 04/12/2015 Not-Taking Diabetic Insoles Act rogelio AmLactin Not-Taking Ibuprofen PRN Active Neurontin Not-Taking Immunizations Vaccine Route Administration Date Status Comme nts Influenza Unknown 09/19/2015 Pending Influenza Unknown 02/15/2019 Administered Influenza Unknown 10/10/2021 Administered Influenza Unknown 11/09/2022 Administered Influenza Unknown 11/10/2023 Administered COVID-19 Moderna Vaccine Unknown 06/06/2020 Administered First Dose: 04/11 03/01 Social History Tobacco Use: Social History Observation Description Date Details (start date - stop date) Never Smoker NA - NA Alcohol Screen Question Answer Notes Did you have a drink containing alcohol in the p ast year? No Points 0 Interpretation Negative Tobacco use other than smoking: Question Answer Notes Are you an other tobacco user? No Tobacco Control (Standard) Question Answer Notes Tobacco use: Nonsmoker Additional Findings: Tobacco non-user Ex-cigaret te smoker AUDIT-C (Standard) Question Answer Notes Did you have a drink containing alcohol in the p ast year? No Points 0 Interpretation Negative Problems Problem Type SNOMED Code ICD Code Onset Dates Problem Status W/U Status Risk Notes Problem Acquired hammer toe of right foot (3554766781848400 ) Other hammer toe(s) (acquired), right foot (M20.41) Active confirmed Problem Acquired hammer toe of left foot (2923360303775170 ) Other hammer toe(s) (acquired), left foot (M20.42) Active confirmed Problem Polyneuropathy due to type 2 diabetes mellitus (645630536) Type 2 diabetes mellitus with diabetic polyneuropathy (E11.42) Active confirmed Vital Signs Blood pressure diastolic 80 mm Hg 11/16/2024 Height 5ft8in in 11/16/2024 Blood pressure systolic 121 mm Hg 11/16/2024 Weight 220 lbs 11/16/2024 BMI 33.45 kg/m2 11/16/2024 Procedures Procedure Date Ordered Date Performed Result Body Sit e 39752-IFRH SKIN LESIONS, OVER 4 01/21/2024 N/A Z2667-YAVBMGZR DYSTROPHIC NAILS ANY # 01/21/2024 N/A 59541-Ngsqftkf Plate 06/06/2024 N/A 17265-Vrfaywie Plate Each Additional 06/06/2024 N/A 24875-DTVE SKIN LESIONS, OVER 4 06/06/2024 N/A R8812-EFBPKFLM DYSTROPHIC NAILS ANY # 06/06/2024 N/A 17079-HGOI SKIN LESIONS, OVER 4 11/16/2024 N/A T9520-TUDGEIMK DYSTROPHIC NAILS ANY # 11/16/2024 N/A Encounters Encounter Location Date Provider Diagnosis [address] [address] 01/21/2024 Yaima Black Type 2 diabetes mellitus with diabetic polyneuropathy E11.42 ; Other hammer toe(s) (acquired), right foot M20.41 ; Pain in right toe(s) M79.674 ; Pain in left toe(s) M79.675 and Other hammer toe(s) (acquired), left foot M20.[address] [address] 06/06/2024 Yaima Black Type 2 diabetes mellitus with diabetic polyneuropathy E11.42 and Ingrowing nail L60.[address] [address] 11/16/2024 Yaima Black Type 2 diabetes mellitus with diabetic polyneuropathy E11.42 ; Other hammer toe(s) (acquired), right foot M20.41 and Other hammer toe(s) (acquired), left foot M20.[address] [address] 09/05/2024 Yaima Black Assessments Encounter Date Diagnosis (ICD Code) Assessment Notes Treatment Notes Treatment Clinical Notes Section Notes 01/21/2024 Other hammer toe(s) (acquired), right foot (ICD-10 - M20.41) Patient Educated with: DIABETIC FOOT CARE INSTRUCTIONS. pdf (DIABETIC FOOT CARE INSTRUCTIONS. pdf) 01/21/2024 Type 2 diabetes mellitus with diabetic polyneuropathy (ICD-10 - E11.42) 06/06/2024 Ingrowing nail (ICD-10 - L60.0) 06/06/2024 Type 2 diabetes mellitus with diabetic polyneuropathy (ICD-10 - E11.42) 11/16/2024 Other hammer toe(s) (acquired), right foot (ICD-10 - M20.41) Patient Educated with: DIABETIC FOOT CARE INSTRUCTIONS. pdf (DIABETIC FOOT CARE INSTRUCTIONS. pdf) 11/16/2024 Type 2 diabetes mellitus with diabetic polyneuropathy (ICD-10 - E11.42) 01/21/2024 Pain in right toe(s) (ICD-10 - M79.674) 11/16/2024 Other hammer toe(s) (acquired), left foot (ICD-10 - M20.42) 01/21/2024 Pain in left toe(s) (ICD-10 - M79.675) 01/21/2024 Other hammer toe(s) (acquired), left foot (ICD-10 - M20.42) 06/06/2024 Other Plan Of Treatment Pending Test Test Name Order Date X ray : Foot, left 2V 12/25/2010 X ray : Foot, right 2V 12/25/2010 74462-KIWONFV NAIL, 6 OR MORE 05/12/2016 75090-TDUCHDG NAIL, 6 OR MORE 09/19/2015 60199-ATKOUYR NAIL, 6 OR MORE 09/29/2016 76671-ZXZQSDN NAIL, 6 OR MORE 12/25/2016 37963-DCMNAUH NAIL, 6 OR MORE 12/25/2010 84282-JSIVSOR NAIL, 6 OR MORE 06/07/2012 82449-ZHZCNMC NAIL, 6 OR MORE 12/06/2012 75381-GPIETZY NAIL, 6 OR MORE 06/13/2013 66669-HPQHIPI NAIL, 6 OR MORE 04/12/2015 39972-XGSVRWP NAIL, 6 OR MORE 07/11/2015 37044-QWPJWGQ NAIL, 6 OR MORE 08/31/2017 14748-OVONPXC NAIL, 6 OR MORE 07/12/2018 78189-UOYNXLM NAIL, 6 OR MORE 09/29/2019 00933-YRQAGPJ NAIL, 6 OR MORE 04/05/2020 74048-GHJMGCE NAIL, 6 OR MORE 10/25/2020 51711-DRORQYI NAIL, 6 OR MORE 08/22/2021 52101-Bclbangm Plate 06/19/2022 12381-Slfwoqds Plate 01/15/2023 24506-Rhxqrrgi Plate 08/22/2021 58341-Iitwgzoh Plate 06/06/2024 17073-Unsyjmwh Plate 10/25/2020 00018-Iulmvflo Plate 07/12/2018 09007-Kbsrgvdh Plate 08/31/2017 22247-Vvhtyceu Plate 07/11/2015 61143-Vhtaplww Plate 06/13/2013 78134-Jalnymto Plate 12/25/2016 24246-Pdqqvtpn Plate 09/19/2015 38154-Ykoiakrt Plate 05/12/2016 75500-Lshjobxu Plate 04/12/2015 55393-Schgpirq Plate Each Additional 56013-Pfbdxypi Plate Each Additional 06/2013 01627-Yxyyngyi Plate Each Additional 50066-Kuhrksoq Plate Each Additional 04/2018 38404-Kbgxhcdd Plate Each Additional 63133-Kricvgak Plate Each Additional 80638-Jpcclvdb Plate Each Additional 12/2022 67740- Debride <25 sq cm 06/13/2013 25446 I&D ABSCESS- SIMPLE,SINGLE 017 62075 I&D ABSCESS- SIMPLE,SINGLE 016 18898-RMAT SKIN LESIONS, OVER 4 06/20/19 23 71566-EQPV SKIN LESIONS, OVER 4 01/16/20 23 34263-VHOQ SKIN LESIONS, OVER 4 07/23/19 24 86864-SLEL SKIN LESIONS, OVER 4 01/21/20 24 36087-RPKQ SKIN LESIONS, OVER 4 06/07/19 25 36543-JFEQ SKIN LESIONS, OVER 4 11/17/19 25 26296-PAZK SKIN LESIONS, OVER 4 08/23/19 22 90927-YNSM SKIN LESIONS, OVER 4 10/26/19 21 44011-BHJI SKIN LESIONS, OVER 4 04/05/19 21 15595-EODM SKIN LESIONS, OVER 4 09/29/19 20 50335-GPMQ SKIN LESIONS, 2 TO 4 07/13/19 19 27651-WMVL SKIN LESIONS, 2 TO 4 12/07/19 13 95763-SZMA SKIN LESIONS, 2 TO 4 06/14/19 14 40565-INOL SKIN LESIONS, 2 TO 4 07/11/19 16 34940-IELM SKIN LESIONS, 2 TO 4 04/12/19 16 17678-XUYI SKIN LESIONS, 2 TO 4 05/13/19 17 39275-GCHB SKIN LESIONS, 2 TO 4 09/30/19 17 94065-BTZW SKIN LESIONS, 2 TO 4 12/26/19 17 38702-YKHG SKIN LESIONS, 2 TO 4 09/19/19 16 45497-DNXI SKIN LESIONS, 2 TO 4 09/01/19 18 F1746-YEMCWWVQ DYSTROPHIC NAILS ANY # V6397-QJJAEYIH DYSTROPHIC NAILS ANY # V5482-RWASBPKP DYSTROPHIC NAILS ANY # W9600-QEFNSCZB DYSTROPHIC NAILS ANY # A9619-FKYGIIAE DYSTROPHIC NAILS ANY # N9836-AATQFVDI DYSTROPHIC NAILS ANY # Next Appt Details Provider Name:Yaima Tabor , 03/23/2025 02:15:00 PM, [address] [place] [address], [place], [address], Insurance Providers Payer Name Payer Address Payer Phone Subscriber Number Group Number Insured Name Patient Relationship to Insured Coverage Start Date Coverage End Date [employer] [address] [place] [address] [id number] Debra Shea Self - patient is the insured [facility] [address] [place] [address] [id number] Debra Shea Self - patient is the insured Medical (General) History Medical History History ICD Code hernia headaches/migraines diabetic depression chicken pox Cholesterol back, hip, knee pain Arthritis Anxiety disorder Stroke Surgical History Surgery Date(Month/Year) back surgery Hospitalization History Reason Date(Month/Year) [facility]- stroke 04/2023
== END 2024-11-24 16:05 | disposition home or self-care (01) ==
LOC: HO.ENCR 15:24
PROVIDERS: PCP Internal Medicine; Visit Provider Internal Medicine
DX: E11.9 Type 2 diabetes mellitus without complications (principal)

== ENCOUNTER → 2024-11-24 15:24 | Outpatient (BNVA) | payer MEDICARE, BC, SELFPAY | PROVIDERS: PCP Internal Medicine; Visit Provider Internal Medicine | DX: E11.9 Type 2 diabetes mellitus without complications (principal); Z79.85 Long-term (current) use of injectable non-insulin antidiabetic drugs | CPT/HCPCS: 82947; 83036; 99212 ==

== ENCOUNTER 2024-12-27 10:39 | Outpatient (AMB) | payer MEDICARE, BC, SELFPAY ==
[2024-12-27 11:22] VITALS: BP 142/80; PULSE 59; TEMP 36.2; O2SAT 95; BMI 33.0
--- NOTE | 2024-12-27 11:22 | MHC.PC.OV ---
Vital Signs 12/27/24 11:22 Height 5 ft 8 in Weight 217 lb BMI 33.0 BP 142/80 H Blood Pressure Location Lt brachial Position Sitting Pulse 59 Pulse Source Pulse Oximeter Temp 97.1 F Temp Source Temporal Artery Scan Pulse Oximetry (%) 95 Oxygen Delivery Method Room Air Intake Visit Reasons: DM Intake Note: Patient is here to follow up on DM. 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: Not Required per policy Accompanied by: Self / Same As Patient Allergies amoxicillin Allergy (Intermediate, Verified 12/27/24 11:30) hives, hand swelling, itch, feet swelling Medication List - Last Reconciled 12/27/24 by Anna Magana MD aspirin 81 mg PO DAILY 90 days atorvastatin 80 mg PO BEDTIME 90 days blood-glucose sensor ([employer] [place] 3 Sensor device) As directed change every 14 days ifznxvbddb-tbmqnryrvsgxw-qznz 50-325-40 mg 1 tab PO BID PRN 30 days cholecalciferol (vitamin D3) 50 mcg PO DAILY clonazepam 0.5 mg PO DAILY 90 days duloxetine 120 mg (2 x 60 mg) PO DAILY 90 days fenofibrate nanocrystallized 145 mg PO DAILY 90 days fluocinolone acetonide oil 0.01% (DermOtic Oil) 5 drps otic (ears) BID 7 days glipizide 10 mg (2 x 5 mg) PO BID losartan TAKE 1 TABLET BY MOUTH EVERY DAY metformin ER 500 mg PO BID Mounjaro (tirzepatide) 2.5 mg (0.5 mL) subcut QWEEK NS ondansetron HCl 4 mg PO Q8H PRN OneTouch Delica Plus Lancet (lancets) Check once daily NS OneTouch Verio test strips (blood sugar diagnostic) once daily NS pantoprazole 40 mg PO DAILY 90 days propranolol ER 80 mg PO DAILY sumatriptan succinate 25 mg PO Q2-4H PRN 30 days trazodone 50 - 100 mg (1 - 2 x 50 mg) PO BEDTIME PRN Tobacco use date assessed: 04/28/24 Fall risk assessment: No Falls in past year Last assessed Fall Risk: 12/27/24 Dental Screening Dental Screen Date: 04/28/24 HPI HPI Comments History of Present Illness Details The patient is a 69-year-old female presenting for a follow-up visit for her chronic conditions. For her diabetes, her last A1c less than three months ago was 7.4%. She follows with endocrinology and was recently advised to start Mounjaro, which she has obtained but has not yet started due to hesitation. The patient has a history of moderate depression, with a PHQ-9 score of 16. She reports feeling alone, not getting along with her family, and is experiencing worsening circumstances at home. She attributes her ongoing anxiety and fear to a tough childhood. She also suffers from insomnia, reporting being up all night despite taking trazodone. Her blood pressure was borderline elevated today, which she attributes to anxiety about the visit and eating popcorn during the night. She has a known fatty liver and has questions regarding dietary restrictions. She takes pantoprazole for occasional heartburn and has a prescription for sumatriptan for migraines, which she never takes. The patient reports an allergy to amoxicillin, which causes hives. [facility] Medical History (Updated 12/27/24 @ 12:44 by Anna Magana MD) Anxiety Hypersomnia Insomnia Mild recurrent major depression Left knee pain Right hip pain Left hip pain GERD (gastroesophageal reflux disease) Hypovitaminosis D Migraines Mixed hyperlipidemia Obese Depression with anxiety Essential hypertension Hyperthyroidism Diabetes mellitus Hirsutism Vitamin D deficiency Essential hypertension Dyslipidemia Diabetes type 2, uncontrolled Toxic multinodular goiter Surgical History Previous back surgery Status post biopsy of thyroid gland Hx of removal of neck cyst History of back surgery Family History Father Hypertension Substance use disorder Mother Type 2 diabetes mellitus Lung cancer Social History Household Members: None Housing: House Alcohol intake: never Patient Tobacco Use Status: Former Tobacco user Tobacco use type: Cigarette e-Cigarette/Vaping Use: Never Used Second Hand Smoke Exposure: Yes service: No Current occupational status: retired Cognitive needs: Yes Hearing needs: No Vision needs: No Questionnaire PHQ-9 Over the last 2 weeks, how often have you been bothered by any of the following problems? 1. Little interest or pleasure in doing things: more than half the days 2. Feeling down, depressed, or hopeless: more than half the days 3. Trouble falling or staying asleep, or sleeping too much: more than half the days 4. Feeling tired or having little energy: more than half the days 5. Poor appetite or overeating: more than half the days 6. Feeling bad about yourself - or that you are a failure or have let yourself or your family down: more than half the days 7. Trouble concentrating on things, such as reading the newspaper or watching television: more than half the days 8. Moving or speaking so slowly that other people could have noticed. Or the opposite - being so fidgety or restless that you have been moving around a lot more than usual: more than half the days 9. Thoughts that you would be better off or of hurting yourself in some way: not at all Total score: 16 Depression Screening Interpretation: Positive (no suicidal thoughts) Depression Screening Follow-up: Existing condition, In treatment and Follow-up Visit Requested Depression Screening Done: Yes 59009 - PHQ-9 Billing: Yes Source: Developed by Drs. Jun Moncada, Antonina Emery, Balta Lopez and colleagues, with an educational darío from [employer]. Thrive Questionnaire Date Thrive assessed: 12/19/24 I am a: Patient What is your living situation today?: I have a steady place to live Within the past 12 months, did the food you bought not last and you didn't have the money to get more?: Sometimes True Within the past 12 months, did you worry whether your food would run out before you got money to buy more?: Sometimes True Do you have trouble paying for medicines?: No Do you have trouble getting transportation to medical appointments?: Yes Do you have trouble paying your heating and electricity bill?: No Do you have trouble taking care of your child, family member or friend?: No Do you have trouble with day-to-day activities such as bathing, preparing meals, shopping, managing finances, etc.?: Yes Are you currently unemployed and looking for a job?: No Are you interested in more education?: No Currently or been in a relationship where the following occur: No concerns reported THRIVE Score: 3 HAMMAD-7 AMB Questionnaire HAMMAD-7 Date HAMMAD - 7 assessed: 04/28/24 Source: Developed by Antonina HernandezW. Rupert, Balta Lopez and colleagues, with an educational darío from [employer]. Review of Systems Const All systems reviewed & are unremarkable except as noted in HPI and below Card Denies chest pain at rest, Denies chest pain with activity, Denies edema, Denies irregular heart rhythm, Denies claudication, Denies dyspnea, Denies dyspnea on exertion, Denies orthopnea, Denies paroxysmal nocturnal dyspnea and Denies slow heart rate Resp Denies cough, Denies dyspnea and Denies dyspnea on exertion Physical exam (Primary Care) Vital Signs: Last Vital Signs Temp 97.1 F 12/27/24 11:22 Pulse 59 12/27/24 11:22 BP 142/80 H 12/27/24 11:22 Pulse Ox 95 12/27/24 11:22 Oxygen Delivery Method Room Air 12/27/24 11:22 BMI result Body Mass Index 33.0 BMI Assessment/Plan discussion: High BMI High, discussed plan: lifestyle, weight reduction, dietary and physical activity Tobacco/Smoking Status: Tobacco use Status Tobacco use date assessed 04/28/24 12/27/24 11:22 Patient Tobacco Use Status Former Tobacco user 12/27/24 11:22 Tobacco use type Cigarette 12/27/24 11:22 e-Cigarette/Vaping Use Never Used 12/27/24 11:22 PHQ-9: PHQ-9 Score PHQ-9: Total score 16 12/27/24 11:47 Depression Screening Interpretation: Positive (no suicidal thoughts) Depression Screening Follow-up: Existing condition, In treatment and Follow-up Visit Requested Thrive Assessment: Date of Thrive Assessment Date Thrive assessed 12/19/24 12/27/24 11:22 Currently or been in a relationship where the following occur: No concerns reported Resp Effort & Inspection: normal respiratory effort Auscultation: clear to auscultation bilaterally Cardio Jugular venous distension: no JVD Rate: regular rate Rhythm: regular rhythm Heart sounds: S1 normal heart sound present and S2 normal heart sound present Extrem General: Yes full ROM Office Procedures Flu Questionnaire Does the patient have a severe egg allergy?: No Does the patient have severe life threatening allergies?: No Does the patient have a fever or illness today?: No Has the patient ever had Guillain-Homer Syndrome?: No Has the patient ever had any past reaction to a flu shot?: No Immunizations Fluarix [id number] (PF) 45 mcg (15 mcg x 3)/0.5 mL IM syringe Performing Provider: Anna Magana MD [place] [facility] [place] [facility] [place] [facility] Administered by: LUPE Cárdenas on 12/27/24 11:51 Dose Route Admin Location Dispensed Lot Number Expiration Date NDC [employer] 0.5 mL IM Left Deltoid 0.5 mL [id number] 08/08/25 97860-074-09 [employer] VIS Given Date VIS Provided VIS Publication Date 12/27/24 Single Vaccine 24 Eligibility Eligibility Date Funding Source Not [facility] Eligible 12/27/24 Private Coding Level of Care Code Est Pt Level 4 (91376) Complex EM visit Add On G2211 Diagnoses Mixed hyperlipidemia E78.2 Essential hypertension I10 Type 2 diabetes mellitus without complication, without long-term current use of insulin E11.9 Diabetes mellitus type: type 2 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 insulin use: without chcf use Diabetes mellitus complication status: without complication Moderate recurrent major depression F33.1 Additional Codes PHQ-9 - 86939 - PHQ-9 Billing: Yes ([id number]) Time Spent (min) 22 Assessment & Plan Assessment & Plan (1) Mixed hyperlipidemia: Code(s): E78.2 - Mixed hyperlipidemia Category: Medical (2) Essential hypertension: Code(s): I10 - Essential (primary) hypertension Category: Medical (3) Diabetes mellitus: Code(s): E11.9 - Type 2 diabetes mellitus without complications Category: Medical Qualifiers: Diabetes mellitus type: type 2 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 Type 2 Diabetes Mellitus The patient's last A1c was 7.4%. She was encouraged to start Mounjaro as recommended by her pharmaceutical representative. She will continue her current medications, including glipizide and metformin. Blood work was ordered to monitor her condition. 2. Hypertension The patient's blood pressure was borderline elevated in the office, possibly related to anxiety. She will monitor her blood pressure at home and have a telephone follow-up in three weeks. She will continue taking losartan. 3. Depression And Anxiety The patient's PHQ-9 score of 16 indicates moderate depression. She reports significant anxiety and requested an increase in her clonazepam dosage. Due to the risk of dementia associated with clonazepam, the dose was not increased. Buspirone was prescribed twice daily as a new treatment for anxiety, and she was advised it can be taken along with clonazepam. She will continue duloxetine. 4. Insomnia The patient reports persistent insomnia despite taking trazodone. She will continue trazodone, with the potential for improvement in sleep from the newly prescribed buspirone for anxiety. 5. Hyperlipidemia Fenofibrate was discontinued as her triglyceride levels have not been above 500. She will continue atorvastatin 80 mg. Her cholesterol levels will be monitored via the ordered blood work. 6. Fatty Liver Disease The patient received dietary counseling for her fatty liver. She was advised to avoid fried foods, butter, mayonnaise, oils (except olive oil), cheese, and flour. Recommended foods include rice (preferably brown), vegetables, and salad. Orders: Orders Vitamin D 25-OH Total Today E55.9 - Vitamin D deficiency, unspecified Vitamin B12 and Folate Today E53.8 - Deficiency of other specified B group vitamins Lipid Panel Today E78.5 - Hyperlipidemia, unspecified Thyroid Stimulating Hormone Today E05.90 - Thyrotoxicosis, unspecified without thyrotoxic crisis or storm Microalbumin, Random (w Creat) Today R80.9 - Proteinuria, unspecified Comprehensive [place]. Panel Fast Today I63.9 - Cerebral infarction, unspecified Influenza [id number] Immunization Today Z23 - Encounter for immunization Medications: Changed From clonazepam 0.5 mg PO DAILY 90 days 90 tabs 0RF To clonazepam 0.5 mg PO BID 180 tabs 0RF 90 days Refilled fluocinolone acetonide oil 0.01% (DermOtic Oil) 5 drps otic (ears) BID 20 mL 0RF 7 days Discontinued fenofibrate nanocrystallized Discontinued Reason: Patient Completed Course 145 mg PO DAILY 90 days 90 tabs 1RF
== END 2024-12-27 11:59 | disposition home or self-care (01) ==
LOC: HO.HMCH 10:41
PROVIDERS: PCP Internal Medicine; Visit Provider Internal Medicine
DX: E78.2 Mixed hyperlipidemia (principal); I10 Essential (primary) hypertension; E11.9 Type 2 diabetes mellitus without complications; F33.1 Major depressive disorder, recurrent, moderate; Z23 Encounter for immunization

== ENCOUNTER → 2024-12-27 10:39 | Outpatient (BNVA) | payer MEDICARE, BC, SELFPAY | PROVIDERS: PCP Internal Medicine; Visit Provider Internal Medicine | DX: E11.9 Type 2 diabetes mellitus without complications (principal); R03.0 Elevated blood-pressure reading, without diagnosis of hypertension; E78.2 Mixed hyperlipidemia; I10 Essential (primary) hypertension; F33.1 Major depressive disorder, recurrent, moderate; Z23 Encounter for immunization | CPT/HCPCS: 90471; 90656; 96127; 99212 ==